=== PATIENT | female | born 1975 | race Caucasian/White ===

== ENCOUNTER 2017-10-10 09:21 | Observation (INO) | payer SELFPAY ==
[2017-10-10] MEDS ORDERED: ASPIRIN EC 81 MG TAB PO ONE (10:03)
[2017-10-10 10:10] LABS: Absolute Lymphocytes (CBC) 3.6 K/uL (0.7-4.9); Absolute Neutrophil 5.2 K/uL (1.8-8.0); Eosinophils % 0.6 % (0-4.4); Hematocrit 42.5 % (36.0-45.0); MCH 28.2 pg (27.0-35.0); MCV 84.3 fL (80-100); MPV 7.9 fL (7.6-11.3); Monocytes % 10.3 % (3.3-12.3); RBC Red Blood Cell Count 5.04 M/uL (3.86-4.86)
[2017-10-10 10:24] LABS: Potassium 3.9 mEq/L (3.6-5.0)
--- NOTE | 2017-10-10 10:30 | RAD REPORT ---
EXAM DESCRIPTION: RAD - Chest Single View - 10/10/2017 10:24 am CLINICAL HISTORY: Chest pain. COMPARISON: 08/04/2009 FINDINGS: Portable technique limits examination quality. The lungs are grossly clear. The heart is normal in size. No displaced fractures. IMPRESSION: No acute intrathoracic process suspected.
[2017-10-10 10:44] LABS: Urine Blood NEGATIVE (NEG); Urine Glucose NEGATIVE (NEG); Urine Protein NEGATIVE (NEG)
--- NOTE | 2017-10-10 11:15 | ER ---
Nurse's Notes [facility] Name: Bernice Akers Age: 42 yrs Sex: Female : 1975 Arrival Date: 10/10/2017 Time: : Bed 19 Private MD: Alvaro Gaytan Diagnosis: Chest pain, unspecified Presentation: 10/10 09:40 Presenting complaint: Patient states: left sided chest pain that started about 30-40 iw minutes ago, also started to have left arm tingling, CP is intermittent and described as "tightening and burning", also had mild nausea and SOB. Transition of care: patient was not received from another setting of care. Onset of symptoms was October 10, 2017. Risk Assessment: Do you want to hurt yourself or someone else? Patient reports no desire to harm self or others. Initial Sepsis Screen: Does the patient meet any 2 criteria? No. Patient's initial sepsis screen is negative. Does the patient have a suspected source of infection? No. Patient's initial sepsis screen is negative. Care prior to arrival: None. 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 - Social history:: Smoking status: Patient uses tobacco products, smokes one pack cigarettes per day. - Family history:: not pertinent. - Hospitalizations: : No recent hospitalization is reported. Screenin:00 Abuse screen: Denies threats or abuse. Nutritional screening: No deficits noted. em Tuberculosis screening: No symptoms or risk factors identified. Fall Risk None identified. Assessment: 10:13 General: Appears in no apparent distress. uncomfortable, Behavior is calm, cooperative. em Pain: Complains of pain in left breast Pain radiates to left arm Quality of pain is described as burning, tingling, Pain began 1 hour ago. Neuro: Level of Consciousness is awake, alert, obeys commands, Oriented to person, place, time, situation. Cardiovascular: Capillary refill < 3 seconds Patient's skin is warm and dry. Cardiovascular: Reports chest pain, nausea, shortness of breath, Heart tones S1 S2 present. Respiratory: Airway is patent Respiratory effort is even, unlabored, Respiratory pattern is regular, symmetrical. Respiratory: Breath sounds are clear bilaterally. GI: Abdomen is flat. GI: Reports nausea. : No signs and/or symptoms were reported regarding the genitourinary system. Derm: Skin is intact, Skin is pink, warm \\T\\ dry. Musculoskeletal: Range of motion: intact in all extremities. 10:20 Reassessment: Patient appears in no apparent distress at this time. I agree with above iw assessment by Nick Quiros LVN. 11:00 Reassessment: Patient appears in no apparent distress at this time. Patient and/or em family updated on plan of care and expected duration. Pain level reassessed. Dr. Stout at bedside discussing POC. 11:56 Reassessment: Patient appears in no apparent distress at this time. Patient and/or em family updated on plan of care and expected duration. Pain level reassessed. Patient is alert, oriented x 3, equal unlabored respirations, skin warm/dry/pink. awaiting room assignment Patient states feeling better. 13:00 Reassessment: Patient appears in no apparent distress at this time. Patient and/or em family updated on plan of care and expected duration. Pain level reassessed. Patient is alert, oriented x 3, equal unlabored respirations, skin warm/dry/pink. Patient states feeling better. Patient states symptoms have improved. 13:56 Reassessment: No changes from previously documented assessment. Patient and/or family em updated on plan of care and expected duration. Pain level reassessed. Patient is alert, oriented x 3, equal unlabored respirations, skin warm/dry/pink. Patient states feeling better. 14:51 Reassessment: Patient appears in no apparent distress at this time. Patient is alert, em oriented x 3, equal unlabored respirations, skin warm/dry/pink. pt ambulated to restroom. Vital Signs: 09:46 BP 111 / 54; Pulse 71; Resp 18 S; Temp 98.2; Pulse Ox 97% on R/A; Weight 86.18 kg; iw Height 5 ft. 4 in. (162.56 cm); Pain 7/10; 10:23 BP 122 / 81; Pulse 71; Resp 14; Pulse Ox 99% on R/A; Pain 7/10; em 11:30 BP 112 / 68; Pulse 62; Resp 18; Pulse Ox 98% on R/A; em 12:30 BP 114 / 77; Pulse 60; Resp 18; Pulse Ox 98% on R/A; Pain 4/10; em 13:30 BP 104 / 68; Pulse 61; Resp 18; Pulse Ox 97% on R/A; em 14:53 BP 111 / 69; Pulse 93; Resp 16; Temp 98.2(O); Pulse Ox 100% on R/A; Pain 6/10; em 09:46 Body Mass Index 32.61 (86.18 kg, 162.56 cm) iw ED Course: 09:23 Patient arrived in ED. mr 09:23 Alvaro Gaytan MD is Private Physician. mr 09:34 Barbie Mccullough FNP-C is [facility]. kb 09:34 Everton Stout MD is Attending Physician. kb 09:43 Everton Stout MD is Attending Physician. rn 09:45 Triage completed. iw 09:49 Nick Quiros LVN is Primary Nurse. em 09:59 EKG done, by unit aide tech. reviewed by Everton Stout MD. tc 10:00 No provider procedures requiring assistance completed. Initial lab(s) drawn, by me, em sent to lab. Inserted saline lock: 20 gauge in right antecubital area, using aseptic technique. Blood collected. Patient maintains SpO2 saturation greater than 95% on room air. 10:16 Arm band placed on. em 10:20 X-ray completed. Portable x-ray completed in exam room. Patient tolerated procedure jb2 well. 10:23 quality assurance monitor chassis on. Pulse ox on. NIBP on. em 10:23 Patient has correct armband on for positive identification. Placed in gown. Bed in low em position. Call light in reach. Adult w/ patient. 10:24 XRAY Chest (1 view) In Process Unspecified. EDMS 11:14 Estefany Reeves MD is Hospitalizing Provider. rn 15:07 Patient admitted, IV remains in place. em Administered Medications: 10:06 Drug: Aspirin Chewable Tablet 324 mg Route: PO; em 11:58 Follow up: Response: No adverse reaction em Outcome: 11:14 Decision to Hospitalize by Provider. rn 15:07 Admitted to Tele accompanied by tech, via wheelchair, room 215, with chart, Report em called to MAURICIO Brown 15:07 Condition: good 15:07 Instructed on the need for admit, Demonstrated understanding of instructions. 15:11 Patient left the ED. em Signatures: Dispatcher [employer] EDBarbie Hope, TERMINATION CLERK-C TERMINATION CLERK-Ckb Latia España mr Wharton, Mat jb2 Nick Quiros, PUPPET ENGINEER PUPPET ENGINEER em Emma Louis, Everton Charles RN, MD MD rn Callis, Tiffany, dentistry professor EKG Ttc Corrections: (The following items were deleted from the chart) 14:59 09:45 PMHx: None; iw em 15:10 12:30 BP 114 / 77; Pulse 60bpm; Resp 18bpm; Pulse Ox 98% RA; em em
--- NOTE | 2017-10-10 11:15 | EDPHYS ---
Physician Documentation [facility] Name: Bernice Akers Age: 42 yrs Sex: Female : 1975 Arrival Date: 10/10/2017 Time: :23 Bed 19 Private MD: Alvaro Gaytan ED Physician Everton Stout HPI: 10/10 10:10 This 42 yrs old Female presents to ER via Wheelchair with complaints of Chest rn Pain, Numbness Of Arm. 10:10 The patient or guardian reports chest pain that is located primarily in the substernal rn area. Onset: just prior to arrival, 1 hour(s) ago. The pain radiates to the left shoulder. Associated signs and symptoms: Pertinent positives: nausea, Pertinent negatives: abdominal pain, diaphoresis, headache, lightheadedness, near syncope, palpitations, shortness of breath, syncope, vomiting. The chest pain is described as a heaviness. Duration: The patient or guardian reports a single episode, that is still ongoing. Severity of pain: At its worst the pain was mild in the emergency department the pain is unchanged. The patient has not experienced similar symptoms in the past. The patient has not recently seen a physician. Chest heaviness began at rest, radiates to left shoulder, no medical problems, no famhx of VA, + smoker, no fever/cough.. 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 - Social history:: Smoking status: Patient uses tobacco products, smokes one pack cigarettes per day. - Family history:: not pertinent. - Hospitalizations: : No recent hospitalization is reported. ROS: 10:10 Constitutional: Negative for fever, chills, and weight loss, Eyes: Negative for injury, rn pain, redness, and discharge, Neck: Negative for injury, pain, and swelling, Cardiovascular: Negative for palpitations, and edema, Respiratory: Negative for shortness of breath, cough, wheezing, and pleuritic chest pain, Abdomen/GI: Negative for abdominal pain, vomiting, diarrhea, and constipation, MS/Extremity: Negative for injury and deformity, Skin: Negative for injury, rash, and discoloration, Neuro: Negative for headache, weakness, numbness, tingling, and seizure. Exam: 10:10 Constitutional: This is a well developed, well nourished patient who is awake, alert, rn and in no acute distress. Head/Face: Normocephalic, atraumatic. Eyes: Pupils equal round and reactive to light, extra-ocular motions intact. Lids and lashes normal. Conjunctiva and sclera are non-icteric and not injected. Cornea within normal limits. Periorbital areas with no swelling, redness, or edema. Neck: Trachea midline, no thyromegaly or masses palpated, and no cervical lymphadenopathy. Supple, full range of motion without nuchal rigidity, or vertebral point tenderness. No Meningismus. Cardiovascular: Regular rate and rhythm with a normal S1 and S2. No gallops, murmurs, or rubs. Normal PMI, no JVD. No pulse deficits. Respiratory: Lungs have equal breath sounds bilaterally, clear to auscultation and percussion. No rales, rhonchi or wheezes noted. No increased work of breathing, no retractions or nasal flaring. Abdomen/GI: Soft, non-tender, with normal bowel sounds. No distension or tympany. No guarding or rebound. No evidence of tenderness throughout. MS/ Extremity: Pulses equal, no cyanosis. Neurovascular intact. Full, normal range of motion. Equal circumference. Neuro: Awake and alert, GCS 15, oriented to person, place, time, and situation. Cranial nerves II-XII grossly intact. Motor strength 5/5 in all extremities. Sensory grossly intact. Vital Signs: 09:46 BP 111 / 54; Pulse 71; Resp 18 S; Temp 98.2; Pulse Ox 97% on R/A; Weight 86.18 kg; iw Height 5 ft. 4 in. (162.56 cm); Pain 7/10; 10:23 BP 122 / 81; Pulse 71; Resp 14; Pulse Ox 99% on R/A; Pain 7/10; em 11:30 BP 112 / 68; Pulse 62; Resp 18; Pulse Ox 98% on R/A; em 12:30 BP 114 / 77; Pulse 60; Resp 18; Pulse Ox 98% on R/A; Pain 4/10; em 13:30 BP 104 / 68; Pulse 61; Resp 18; Pulse Ox 97% on R/A; em 14:53 BP 111 / 69; Pulse 93; Resp 16; Temp 98.2(O); Pulse Ox 100% on R/A; Pain 6/10; em 09:46 Body Mass Index 32.61 (86.18 kg, 162.56 cm) iw MDM: 09:43 Patient medically screened. rn 11:11 Differential diagnosis: acute pericarditis, coronary artery disease costochondritis, rn gastroesophageal reflux disease (GERD), pericarditis, pleurisy, pneumonia, pneumothorax, pulmonary embolus. The patient was given aspirin in the Emergency Department. Data reviewed: vital signs, nurses notes, lab test result(s), EKG, radiologic studies, plain films, and as a result, I will admit patient. Counseling: I had a detailed discussion with the patient and/or guardian regarding: the historical points, exam findings, and any diagnostic results supporting the discharge/admit diagnosis, lab results, radiology results, the need for further work-up and treatment in the hospital. Response to treatment: the patient's symptoms have mildly improved after treatment, and as a result, I will admit patient. Admission orders: after a detailed discussion of the patient's condition and case, the admit orders are written by me. ED course: Pt with chest pain that has improved, now complaining mostly of tingling down left arm. Never had cardiac eval, will admit for chest pain eval given long-time smoker and no clear etiology of chest pain.. 10/10 09:48 Order name: Basic Metabolic Panel; Complete Time: 10:54 10/10 09:48 Order name: BNP; Complete Time: 10:54 10/10 09:48 Order name: CBC with Diff; Complete Time: 10:32 10/10 09:48 Order name: Ckmb; Complete Time: 10:54 10/10 09:48 Order name: CPK; Complete Time: 10:54 10/10 09:48 Order name: Troponin (emerg Dept Use Only); Complete Time: 10:54 10/10 09:48 Order name: XRAY Chest (1 view); Complete Time: 10:32 10/10 09:48 Order name: EKG; Complete Time: 09:49 rn 10/10 09:48 Order name: Cardiac monitoring; Complete Time: 10:32 rn 10/10 09:48 Order name: EKG - Nurse/Tech; Complete Time: 10:32 rn 10/10 09:48 Order name: D-Dimer; Complete Time: 10:32 rn 10/10 10:33 Order name: Urine Dipstick--Ancillary (enter results); Complete Time: 10:54 10/10 09:48 Order name: IV Saline Lock; Complete Time: 10:32 rn 10/10 09:48 Order name: Labs collected and sent; Complete Time: 10:32 rn 10/10 09:48 Order name: O2 Per Protocol; Complete Time: 10:32 rn 10/10 09:48 Order name: O2 Sat Monitoring; Complete Time: 10:32 rn 10/10 09:48 Order name: Urine Dipstick-Ancillary (obtain specimen); Complete Time: 10:32 rn Administered Medications: 10:06 Drug: Aspirin Chewable Tablet 324 mg Route: PO; em 11:58 Follow up: Response: No adverse reaction em Disposition: 10/10/17 11:14 Hospitalization ordered by Estefany Reeves for Observation. Preliminary diagnosis is Chest pain, unspecified. - Bed requested for Telemetry/MedSurg (observation). - Status is Observation. em - Condition is Stable. - Problem is new. - Symptoms have improved. UTI on Admission? No Signatures: Dispatcher [employer] EDPR Zayda Hernandez bd Nick Quiros, FAMILY DENTIST FAMILY DENTIST em Emma Louis RN RN iw Everton Stout MD MD photography intern: (The following items were deleted from the chart) 10:32 09:48 Urine Test ordered. rn em 14:39 11:14 Hospitalization Ordered by Estefany Reeves MD for Observation. Preliminary bd diagnosis is Chest pain, unspecified. Bed requested for Telemetry/MedSurg (observation). Status is Observation. Condition is Stable. Problem is new. Symptoms have improved. UTI on Admission? No. rn 14:59 09:45 PMHx: None; iw em 15:11 14:39 10/10/2017 11:14 Hospitalization Ordered by Estefany Reeves MD for Observation. em Preliminary diagnosis is Chest pain, unspecified. Bed requested for Telemetry/MedSurg (observation). Status is Observation. Condition is Stable. Problem is new. Symptoms have improved. UTI on Admission? No. bd
[2017-10-10] MEDS ORDERED: ONDANSETRON 4 MG/2 ML VIAL IV PRN (11:32)
[2017-10-10] MEDS ORDERED: ACETAMINOPHEN 500 MG TAB PO PRN (11:32)
--- NOTE | 2017-10-10 12:27 | EKG ---
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
--- NOTE | 2017-10-10 15:11 | P.HP ---
Certification for Inpatient Patient admitted to: Observation With expected LOS: <2 Midnights Patient will require the following post-hospital care: None Practitioner: I am a practitioner with admitting privileges, knowledge of patient current condition, hospital course, and medical plan of care. Services: Services provided to patient in accordance with Admission requirements found in Title 42 Section 412.3 of the Code of Federal Regulations Patient History Date of Service: 10/10/17 Primary Care Provider: None Reason for admission: Chest pain History of Present Illness: 42-year-old female with significant past medical history of nicotine abuse smokes 1 pack a day for over 20 years who presented to the ED complaining of having some chest pain at rest. Patient stated that she was driving to her work when she started having some chest pressure on the left. Pt also had burning on the left side of her left breast. Patient stated that she thought her pain was not radiating anywhere else however she did feel like she was short of breath at that time. Pain lasted about 30 to 40 mins and resolved on its own. Patient denies having any nausea vomiting or any other associated symptoms with it. Patient states that she has been smoking 1 pack of cigarettes for over 20 years and has not been followed up by a primary care physician for a long time. Patient does not have an family history of MIs and states pretty much everybody in her family is healthy Allergies No Known Allergies Allergy (Unverified 02/05/16 04:39) Review of Systems General: As per HPI Physical Examination - Physical Exam General: Alert, In no apparent distress HEENT: Atraumatic, PERRLA, Mucous membr. moist/pink, EOMI, Sclerae nonicteric Neck: Supple, 2+ carotid pulse no bruit, No LAD, Without JVD or thyroid abnormality Respiratory: Clear to auscultation bilaterally, Normal air movement Cardiovascular: Regular rate/rhythm, Normal S1 S2 Gastrointestinal: Normal bowel sounds, No tenderness Musculoskeletal: No tenderness Integumentary: No rashes Neurological: Normal gait, Normal speech, Normal strength at 5/5 x4 extr, Normal tone, Normal affect Lymphatics: No axilla or inguinal lymphadenopathy - Studies Laboratory Data (last 24 hrs) 10/10/17 10:00: WBC 9.9, Hgb 14.2, Hct 42.5, Plt Count 315 10/10/17 10:00: B-Natriuretic Peptide 32 10/10/17 10:00: Sodium 140, Potassium 3.9, BUN 8, Creatinine 0.71, Glucose 94 Assessment and Plan - Problems (Diagnosis) (1) Chest pain Current Visit: Yes Status: Acute Plan: Chest Pain with Negative troponin and EKG. Most likely costocondritis. -ECHO ordered -Treadmill Stress test -ASA, lipitor and BB -Smoking cessation provided -DC if negative stress test. Qualifiers: Chest pain type: unspecified Qualified Code(s): R07.9 - Chest pain, unspecified (2) Nicotine abuse Current Visit: Yes Status: Chronic Plan: Smoked about 1 pack a day for over 20 yrs Discharge Plan: Home Plan to discharge in: 24 Hours - Advance Directives Does patient have a Living Will: No Does patient have a Durable POA for Healthcare: No - Code Status/Comfort Care Code Status Assessed: Yes Critical Care: No
[2017-10-10 16:00] VITALS: BMI 326.3
[2017-10-10] MEDS ORDERED: ATORVASTATIN 40 MG TAB PO SCH (21:00)
[2017-10-11 01:43] VITALS: O2SAT 97
[2017-10-11 05:35] LABS: Bicarbonate 27 mEq/L (21-31); Potassium 3.8 mEq/L (3.6-5.0); Sodium Level 138 mEq/L (135-145)
[2017-10-11 05:38] LABS: BUN Blood Urea Nitrogen 11 mg/dL (6-20); Glucose Level 97 mg/dL (65-120); Phosphorus 5.3 mg/dL (2.5-4.3)
[2017-10-11] MEDS ORDERED: METOPROLOL TAR 25 MG TAB PO SCH (06:00)
--- NOTE | 2017-10-11 08:38 | ECHO ---
HEIGHT: 5 ft 4 in WEIGHT: 1901 lb 0 oz DATE OF STUDY: 10/10/[address]: Estefany Reeves MD 2-DIMENSIONAL: YES M.MODE: YES DOPPLER: YES COLOR FLOW: YES TDS: NO PORTABLE: NO DEFINITY: NO BUBBLE STUDY: NO DIAGNOSIS: CHEST PAIN CARDIAC HISTORY: CATHERIZATION: NO SURGERY: NO PROSTHETIC VALVE: NO PACEMAKER: NO MEASUREMENTS (cm) DIASTOLIC (NORMALS) SYSTOLIC (NORMALS) IVSd 1.0 (0.6-1.2) LA Diam 3.4 (1.9-4.0) LVEF 63% LVIDd 4.1 (3.5-5.7) LVIDs 2.7 (2.0-3.5) %FS 34% LVPWd 1.0 (0.6-1.2) Ao Diam 2.9 (2.0-3.7) 2 DIMENSIONAL ASSESSMENT: RIGHT ATRIUM: NORMAL LEFT ATRIUM: NORMAL RIGHT VENTRICLE: NORMAL LEFT VENTRICLE: NORMAL TRICUSPID VALVE: NORMAL MITRAL VALVE: NORMAL PULMONIC VALVE: NORMAL AORTIC VALVE: NORMAL PERICARDIAL EFFUSION: NONE AORTIC ROOT: NORMAL LEFT VENTRICULAR WALL MOTION: NORMAL. DOPPLER/COLOR FLOW: MILD TRICUSPID REGURGITATION. COMMENTS: MILD TRICUSPID REGURGITATION- NORMAL RIGHT VENTRICULAR SYSTOLIC PRESSURE. NORMAL LEFT VENTRICULAR SIZE AND FUNCTION. NO WALL MOTION ABNORMALITY. NO EFFUSION. TECHNOLOGIST: JAMES APONTE
[2017-10-11] MEDS ORDERED: ASPIRIN EC 81 MG TAB PO SCH (09:00)
[2017-10-11 10:04] LABS: Urine Appearance CLOUDY; Urine Bilirubin NEGATIVE (NEG); Urine Blood TRACE (NEG); Urine Color YELLOW; Urine Glucose NEGATIVE (NEG); Urine Protein NEGATIVE (NEG); Urine Specific Gravity 1.025 (1.005-1.030)
[2017-10-11 10:06] LABS: Urine Microscopic Reflex ORDER UMIC
[2017-10-11 10:16] LABS: Urine Bacteria 20-50 /HPF (<20); Urine Culture Reflex Order NOT NEEDED
[2017-10-11 10:21] VITALS: BP 107/54; TEMP 97.9
--- NOTE | 2017-10-11 11:15 | TREADMILL ---
70% H.R.: 124 85% H.R.: 158 90% H.R.: 159 100% H.R.: 177 DX: CHEST PAIN WITH HISTORY OF SMOKING Date of Study: 10/11/17 Ht: 5 4 Wt: 1901 lb 0 oz Consulting Physician: FREDY MEDICATIONS: TYLENOL, ASPIRIN, LIPITOR, LOPRESSOR, ZOFRAN, SODIUM CHLORIDE. HISTORY: 42 YEAR OLD FEMALE HERE FOR CHEST PAIN. HISTORY OF BELLS PALSY. SMOKING PHYSICIAL EXAMINATION: RESTING B.P.: 111/70 RESTING H.R.: 59 RESTING EKG: NORMAL PROTOCOL: ROBERT ROUTINE EXERCISE TIME: 10:20 MAXIMUM HEART RATE: 157 % OF PREDICTED B.P. AT PEAK STRESS: 116/65 H.R. AT 1 MINUTE POST EXERCISE: 118 IMPRESSION: ROUTINE STRESS TEST PERFORMED. STOPPED FOR TARGET HEART RATE AND FATIGUE. NO ARRHYTHMIAS NOTED. DENIES ANY CHEST PAIN. SEE REPORT. NO SIGNIFICANT ST DEPRESSION WITH STRESS. NORMAL STRESS TEST.
--- NOTE | 2017-10-11 12:37 | P.SSS ---
Patient History Date of Service: 10/11/17 Primary Care Provider: None Reason for admission: Chest pain History of Present Illness: 42-year-old female with significant past medical history of nicotine abuse smokes 1 pack a day for over 20 years who presented to the ED complaining of having some chest pain at rest. Patient stated that she was driving to her work when she started having some chest pressure on the left. Pt also had burning on the left side of her left breast. Patient stated that she thought her pain was not radiating anywhere else however she did feel like she was short of breath at that time. Pain lasted about 30 to 40 mins and resolved on its own. Patient denies having any nausea vomiting or any other associated symptoms with it. Patient states that she has been smoking 1 pack of cigarettes for over 20 years and has not been followed up by a primary care physician for a long time. Patient does not have an family history of MIs and states pretty much everybody in her family is healthy Allergies No Known Allergies Allergy (Verified 10/10/17 15:42) Home Medications: Aspirin/Caffeine [Bc Powder Packet] 1 each PO DAILY PRN 10/10/17 - Past Medical/Surgical History Has patient received pneumonia vaccine in the past: No Diabetic: No -: bells palsy left side of face. -: hysterectomy -: oziel knee surgeries - Family History Mother -: Hypertension, Cancer Father -: Hypertension, Lung disease - Social History Smoking Status: Current every day smoker Alcohol use: Yes CD- Drugs: No Caffeine use: Yes Place of Residence: Home Review of Systems Unremarkable General: As per HPI Physical Examination - Vital Signs Temperature: 97.9 F Blood Pressure: 107/54 Pulse: 51 Respirations: 18 Pulse Ox (%): 93 - Physical Exam General: Alert, In no apparent distress HEENT: Atraumatic, PERRLA, Mucous membr. moist/pink, EOMI, Sclerae nonicteric Neck: Supple, 2+ carotid pulse no bruit, No LAD, Without JVD or thyroid abnormality Respiratory: Clear to auscultation bilaterally, Normal air movement Cardiovascular: Regular rate/rhythm, Normal S1 S2 Gastrointestinal: Normal bowel sounds, No tenderness Musculoskeletal: No tenderness Integumentary: No rashes Neurological: Normal gait, Normal speech, Normal strength at 5/5 x4 extr, Normal tone, Normal affect Lymphatics: No axilla or inguinal lymphadenopathy - Diagnosis (Problem(s)) (1) Chest pain Onset Date: 10/11/17 Status: Acute Plan: Chest Pain with Negative troponin and EKG. Most likely costocondritis. -ECHO WNL -Treadmill Stress test negative -Smoking cessation provided Qualifiers: Chest pain type: unspecified Qualified Code(s): R07.9 - Chest pain, unspecified (2) Nicotine abuse Onset Date: 10/11/17 Status: Chronic Plan: Smoked about 1 pack a day for over 20 yrs Treatment Summary: Overall during the hospital stay patient remained stable Patient was initially admitted to the hospital for chest pain rule out acute coronary syndrome. Patient had a treadmill test done which was negative. Patient's echocardiogram was within normal limits. Patient's chest pain is most likely secondary to costochondritis. Patient was educated extensively on smoking cessation and then was discharged home under stable condition. - Disposition Disposition: ROUTINE DISCHARGE Condition: GOOD Diet: Regular Activity: Ad argenis
== END 2017-10-11 11:59 | disposition home or self-care (01) ==
LOC: ER 09:21 → ERHOLD 11:16 → 2ND 14:59
PROVIDERS: ADMIT Family Medicine; ATTEND Family Medicine
DX: R07.9 Chest pain, unspecified (principal); F17.210 Nicotine dependence, cigarettes, uncomplicated
CPT/HCPCS: 36415; 71045; 80048; 81003; 81015; 82550; 82553; 83735; 83880; 84100; 84484; 85025; 85379; 93005; 93017; 93306; 99285; G0378

== ENCOUNTER 2018-04-21 12:05 | Emergency (ER) | payer BC, SELFPAY ==
--- NOTE | 2018-04-21 13:24 | RAD REPORT ---
EXAM DESCRIPTION: RAD - Forearm Left - 04/21/2018 1:18 pm CLINICAL HISTORY: Pain;Swelling COMPARISON: No comparisons FINDINGS: Soft tissue swelling is seen involving the left forearm. No fracture or dislocation seen.
--- NOTE | 2018-04-21 13:46 | ER ---
Nurse's Notes [facility] Name: Bernice Akers Age: 42 yrs Sex: Female : 1975 Arrival Date: 04/21/2018 Time: 12:10 Bed 26 Private MD: Alvaro Gaytan Diagnosis: Contusion of left forearm;Local infection of the skin and subcutaneous tissue, unspecified Presentation: 04/21 12:31 Presenting complaint: Patient states: Left forearm pain that started two days ago after sg nicking the ceiling fan, pt reports this morning she noticed increased swelling and redness to the site of abraision as well as increased pain. Transition of care: patient was not received from another setting of care. Onset of symptoms was April 21, 2018. Risk Assessment: Do you want to hurt yourself or someone else? Patient reports no desire to harm self or others. Initial Sepsis Screen: Does the patient meet any 2 criteria? No. Patient's initial sepsis screen is negative. Does the patient have a suspected source of infection? No. Patient's initial sepsis screen is negative. Care prior to arrival: None. 12:31 Method Of Arrival: Ambulatory sg 12:31 Acuity: IZABEL 4 sg Triage Assessment: 13:05 General: Appears in no apparent distress. well groomed, well developed, well nourished, kr2 Behavior is calm, cooperative, appropriate for age. Injury Description: Abrasion sustained to left forearm. 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 - Social history:: Smoking status: Patient uses tobacco products, smokes one pack cigarettes per day. - Ebola Screening: : Patient negative for fever greater than or equal to 101.5 degrees Fahrenheit, and additional compatible Ebola Virus Disease symptoms Patient denies exposure to infectious person Patient denies travel to an Ebola-affected area in the 21 days before illness onset No symptoms or risks identified at this time. Screenin:05 Abuse screen: Denies threats or abuse. Denies injuries from another. Nutritional kr2 screening: No deficits noted. Tuberculosis screening: No symptoms or risk factors identified. Fall Risk None identified. Assessment: 13:05 General: Appears in no apparent distress. comfortable, well groomed, well developed, kr2 well nourished, Behavior is calm, cooperative, appropriate for age. Pain: Complains of pain in left forearm Pain radiates to left arm Pain currently is 5 out of 10 on a pain scale. Quality of pain is described as aching, tender, Pain began gradually, Is continuous, Alleviated by medications, rest, Aggravated by increased activity, repositioning. Neuro: Level of Consciousness is awake, alert, obeys commands, Oriented to person, place, time, situation, Appropriate for age Polisher Apprentice are equal bilaterally Intact. Cardiovascular: Capillary refill < 3 seconds in bilateral fingers Patient's skin is warm and dry. Respiratory: Airway is patent Respiratory effort is even, unlabored, Respiratory pattern is regular, symmetrical. Derm: Skin is healthy with good turgor, Skin is pink, warm \T\ dry. Wound noted left forearm Wound is an abrasion, erythema and swelling surround abrasion Bruising that is dark purple, on left forearm. 14:00 Reassessment: Patient appears in no apparent distress at this time. Patient and/or kr2 family updated on plan of care and expected duration. Pain level reassessed. Patient is alert, oriented x 3, equal unlabored respirations, skin warm/dry/pink. Musculoskeletal: Circulation, motion, and sensation intact. Vital Signs: 12:33 BP 140 / 81; Pulse 88; Resp 17; Temp 97.7; Pulse Ox 100% on R/A; Weight 83.91 kg; sg Height 5 ft. 6 in. (167.64 cm) (R); Pain 7/10; 13:30 BP 133 / 80; Pulse 84; Resp 16; Pulse Ox 100% on R/A; kr2 12:33 Body Mass Index 29.86 (83.91 kg, 167.64 cm) sg ED Course: 12:10 Patient arrived in ED. sb2 12:11 Alvaro Gaytan MD is Private Physician. sb2 12:31 Arm band placed on. sg 12:32 Triage completed. sg 12:41 Barbie Mccullough FNP-C [facility]. kb 12:41 Dylon Smith MD is Attending Physician. kb 13:05 Patient has correct armband on for positive identification. Bed in low position. Call kr2 light in reach. Side rails up X 1. Pulse ox on. NIBP on. Door closed. Lights dimmed. Warm blanket given. Head of bed elevated. 13:19 X-ray completed. Portable x-ray completed in exam room. Patient tolerated procedure tm4 well. 13:59 Damaris Frances, RN is Primary Nurse. kr2 14:00 Patient did not have IV access during this emergency room visit. kr2 04/22 01:11 No provider procedures requiring assistance completed. kr2 Administered Medications: No medications were administered Outcome: 04/21 13:44 Discharge ordered by . kanwal 14:00 Discharged to home ambulatory. kr2 14:00 Condition: good 14:00 Discharge instructions given to patient, Instructed on discharge instructions, follow up and referral plans. medication usage, Demonstrated understanding of instructions, follow-up care, medications, Prescriptions given X 1. 14:11 Patient left the ED. kr2 Signatures: Barbie Mccullough, ORTHOPAEDIC NURSE-C ORTHOPAEDIC NURSE-Ckb Pablo Ariza RN RN sg Marroquin, Tracy tm4 Damaris Frances, MAURICIO RN kr2 Terri Frost sb2
--- NOTE | 2018-04-21 13:46 | EDPHYS ---
Physician Documentation [facility] Name: Bernice Akers Age: 42 yrs Sex: Female : 1975 Arrival Date: 04/21/2018 Time: 12:10 Bed 26 Private MD: Alvaro Gaytan ED Physician Dylon Smith HPI: 04/21 13:37 This 42 yrs old Female presents to ER via Ambulatory with complaints of Arm kb Injury. 13:37 The patient or guardian complains of injury, pain, that is acute, swelling, tenderness. kb The complaints affect the left forearm. Context: The problem was sustained at home, resulted from a fall, from stool. Onset: The symptoms/episode began/occurred yesterday. Treatment prior to arrival includes: no previous treatment. Modifying factors: The symptoms are alleviated by nothing. the symptoms are aggravated by movement. Associated signs and symptoms: Pertinent positives: erythema, pain, swelling. Severity of symptoms: At their worst the symptoms were mild, moderate, in the emergency department the symptoms are unchanged. The patient has not experienced similar symptoms in the past. The patient has not recently seen a physician. 13:44 Pt was on stool, cleaning fan. Fell and hit forearm on fan. Reports swelling, bruising kb and pain to left forearm and an abrasion that developed redness around it today. States the redness wasn't there yesterday so she was worried about infection.. 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 - Social history:: Smoking status: Patient uses tobacco products, smokes one pack cigarettes per day. - Ebola Screening: : Patient negative for fever greater than or equal to 101.5 degrees Fahrenheit, and additional compatible Ebola Virus Disease symptoms Patient denies exposure to infectious person Patient denies travel to an Ebola-affected area in the 21 days before illness onset No symptoms or risks identified at this time. ROS: 13:37 Constitutional: Negative for fever, chills, and weight loss, Cardiovascular: Negative kb for chest pain, palpitations, and edema, Respiratory: Negative for shortness of breath, cough, wheezing, and pleuritic chest pain, Abdomen/GI: Negative for abdominal pain, nausea, vomiting, diarrhea, and constipation, Neuro: Negative for headache, weakness, numbness, tingling, and seizure. 13:37 MS/extremity: Positive for abrasion, erythema, pain, swelling, tenderness, of the left forearm. Exam: 13:37 Constitutional: This is a well developed, well nourished patient who is awake, alert, kb and in no acute distress. Head/Face: Normocephalic, atraumatic. Chest/axilla: Normal chest wall appearance and motion. Nontender with no deformity. No lesions are appreciated. Cardiovascular: Regular rate and rhythm with a normal S1 and S2. No gallops, murmurs, or rubs. Normal PMI, no JVD. No pulse deficits. Respiratory: Lungs have equal breath sounds bilaterally, clear to auscultation and percussion. No rales, rhonchi or wheezes noted. No increased work of breathing, no retractions or nasal flaring. Abdomen/GI: Soft, non-tender, with normal bowel sounds. No distension or tympany. No guarding or rebound. No evidence of tenderness throughout. Neuro: Awake and alert, GCS 15, oriented to person, place, time, and situation. Cranial nerves II-XII grossly intact. Motor strength 5/5 in all extremities. Sensory grossly intact. Cerebellar exam normal. Normal gait. 13:37 Musculoskeletal/extremity: Extremities: grossly normal except: noted in the left forearm: abrasion, erythema, pain, swelling, tenderness, ROM: limited active range of motion due to pain, in the left forearm, Circulation is intact in all extremities. Sensation intact. Vital Signs: 12:33 BP 140 / 81; Pulse 88; Resp 17; Temp 97.7; Pulse Ox 100% on R/A; Weight 83.91 kg; sg Height 5 ft. 6 in. (167.64 cm) (R); Pain 7/10; 13:30 BP 133 / 80; Pulse 84; Resp 16; Pulse Ox 100% on R/A; kr2 12:33 Body Mass Index 29.86 (83.91 kg, 167.64 cm) MDM: 13:00 Patient medically screened. [facility] 13:40 Data reviewed: vital signs, nurses notes. Data interpreted: Pulse oximetry: on room air kb is 100 %. Interpretation: normal. Counseling: I had a detailed discussion with the patient and/or guardian regarding: the historical points, exam findings, and any diagnostic results supporting the discharge/admit diagnosis, radiology results, the need for outpatient follow up, a family practitioner, to return to the emergency department if symptoms worsen or persist or if there are any questions or concerns that arise at home. 04/21 12:42 Order name: XRAY Forearm LEFT sg 04/21 13:24 Order name: RAD; Complete Time: 13:27 EDMS Administered Medications: No medications were administered Disposition: 04/21/18 13:44 Discharged to Home. Impression: Contusion of left forearm, Local infection of the skin and subcutaneous tissue, unspecified. - Condition is Stable. - Discharge Instructions: Contusion, [id number], Wound Infection, [id number]. - Prescriptions for Keflex 500 mg Oral Capsule - take 1 capsule by ORAL route every 8 hours for 7 days; 21 capsule. - Medication Reconciliation Form, Thank You Letter, Antibiotic Education, Prescription Opioid Use form. - Follow up: Emergency Department; When: As needed; Reason: Worsening of condition. Follow up: Private Physician; When: 2 - 3 days; Reason: Recheck today's complaints, Continuance of care, Re-evaluation by your physician. Addendum: 04/23/2018 07:22 Co-signature as Attending Physician, Dylon Smith MD I agree with the assessment and c espitia plan of care. Signatures: Dispatcher [employer] EDMI Barbie Mccullough, RESOURCING CONSULTANT-C RESOURCING CONSULTANT-Pablo Arroyo RN RN sg Anderson, Corey, MD MD cha Reaves, Karey RN RN kr2 Corrections: (The following items were deleted from the chart) 04/21 14:11 13:44 04/21/2018 13:44 Discharged to Home. Impression: Contusion of left forearm; Local kr2 infection of the skin and subcutaneous tissue, unspecified. Condition is Stable. Forms are Medication Reconciliation Form, Thank You Letter, Antibiotic Education, Prescription Opioid Use. Follow up: Emergency Department; When: As needed; Reason: Worsening of condition. Follow up: Private Physician; When: 2 - 3 days; Reason: Recheck today's complaints, Continuance of care, Re-evaluation by your physician. kb
[2018-04-21 16:06] VITALS: BP 140/81; TEMP 97.7; O2SAT 100
== END 2018-04-21 14:11 | disposition home or self-care (01) ==
LOC: ER 12:05
DX: S50.12XA Contusion of left forearm, initial encounter (principal); L08.9 Local infection of the skin and subcutaneous tissue, unspecified; W08.XXXA Fall from other furniture, initial encounter; W22.8XXA Striking against or struck by other objects, initial encounter; Y93.E9 Activity, other interior property and clothing maintenance; Y92.009 Unspecified place in unspecified non-institutional (private) residence as the place of occurrence of the external cause; F17.210 Nicotine dependence, cigarettes, uncomplicated
CPT/HCPCS: 99283

== ENCOUNTER 2018-06-14 18:22 | Emergency (ER) | payer BC ==
--- OUTSIDE RECORDS SUMMARY | 2018-06-14 18:24 | XMS REPORT ---
:1975 [facility] Address [address] [place] [address] Care Team Providers Name Role Phone Unavailable Unavailable Unavailable Problems This patient has no known problems. Allergies, Adverse Reactions, Alerts This patient has no known allergies or adverse reactions. Medications This patient has no known medications.
[2018-06-14] MEDS ORDERED: KETOROLAC 30 MG/ML INJ ONE (19:17)
[2018-06-14] MEDS ORDERED: NA CHLORIDE 0.9% 1,000 ML ONE (19:17)
[2018-06-14 20:10] LABS: Absolute Lymphocytes (CBC) 4.3 K/uL (0.7-4.9); Absolute Monocytes 0.9 K/uL (0.1-1.3); Absolute Neutrophil 3.7 K/uL (1.8-8.0); Basophils % 0.6 % (0-1.3); Eosinophils % 1.6 % (0-4.4); Hematocrit 40.8 % (36.0-45.0); Lymphocytes % 47.9 % (15.3-44.8); MPV 7.4 fL (7.6-11.3); Monocytes % 9.4 % (3.3-12.3); RBC Red Blood Cell Count 4.74 M/uL (3.86-4.86)
[2018-06-14 20:22] LABS: Potassium 3.7 mmol/L (3.5-5.1); Sodium Level 141 mmol/L (136-145)
[2018-06-14 20:23] LABS: Bicarbonate 28 mmol/L (21-32); Glucose Level 86 mg/dL (74-106); Lipase 256 U/L (73-393)
[2018-06-14 20:24] LABS: Albumin 3.8 g/dL (3.4-5.0); BUN Blood Urea Nitrogen 12 mg/dL (7-18)
[2018-06-14 20:26] LABS: ALT/SGPT 31 U/L (12-78); AST/SGOT 20 U/L (15-37); Bilirubin Direct < 0.1 mg/dL (0-0.2)
[2018-06-14 20:28] LABS: Bilirubin Total 0.2 mg/dL (0.2-1.0); Protein, Total 6.9 g/dL (6.4-8.2)
[2018-06-14 20:29] LABS: Alkaline Phosphatase 35 U/L (45-117)
--- NOTE | 2018-06-14 20:50 | RAD REPORT ---
EXAM DESCRIPTION: CTAbdomen Pelvis W Contrast - 06/14/2018 8:40 pm CLINICAL HISTORY: Abdominal pain. Constipation;Abd pain;Flank pain COMPARISON: No comparisons TECHNIQUE: Biphasic CT imaging of the abdomen and pelvis was performed with 100 ml non-ionic IV cont rast. All CT scans are performed using dose optimization technique as appropriate and may include automated exposure control or mA/KV adjustment according to patient size. FINDINGS: The lung bases are clear. The liver, spleen, pancreas, adrenal glands and kidneys are within normal limits. No bowel obstruction, free air, free fluid or abscess. Moderate stool in the colon. Scattered diverti culosis. The appendix is normal. Small fat containing umbilical hernia. No evidence of significant ly mphadenopathy. No suspicious bony findings. IMPRESSION: No acute intra-abdominal or pelvic finding. Moderate constipation.
--- NOTE | 2018-06-14 20:55 | EDPHYS ---
Physician Documentation [facility] Name: Bernice Akers Age: 43 yrs Sex: Female : 1975 Arrival Date: 06/14/2018 Time: 18:26 Bed 23 Private MD: Alvaro Gaytan ED Physician Arnaldo Bocanegra HPI: 06/14 20:31 This 43 yrs old Female presents to ER via Ambulatory with complaints of pm1 Constipation, Back Pain. 20:31 The patient presents with abdominal pain in the lower abdomen. Onset: The pm1 symptoms/episode began/occurred 2 week(s) ago. The symptoms do not radiate. Associated signs and symptoms: Pertinent positives: left flank pain, foul smelling concentrated urine, Pertinent negatives: nausea, vomiting, and diarrhea, chest pain, fever, shortness of breath. The symptoms are described as crampy. Modifying factors: The symptoms are alleviated by nothing, the symptoms are aggravated by laxatives. Severity of pain: in the emergency department the pain is actually worse. The patient has experienced similar episodes in the past, chronically, constipation for the past 6 months. The patient has not recently seen a physician. Has been taking some laxatives as needed for constipation for the past 6 months. For the past 2 weeks has been passing small pellets with taking laxatives. 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 - Social history:: Smoking status: Patient uses tobacco products, 2 cigarettes per day . - Ebola Screening: : Patient negative for fever greater than or equal to 101.5 degrees Fahrenheit, and additional compatible Ebola Virus Disease symptoms Patient denies exposure to infectious person Patient denies travel to an Ebola-affected area in the 21 days before illness onset No symptoms or risks identified at this time. ROS: 20:31 Constitutional: Negative for fever, chills, and weight loss, Eyes: Negative for injury, pm1 pain, redness, and discharge, ENT: Negative for injury, pain, and discharge, Neck: Negative for injury, pain, and swelling, Cardiovascular: Negative for chest pain, palpitations, and edema, Respiratory: Negative for shortness of breath, cough, wheezing, and pleuritic chest pain. 20:31 MS/Extremity: Negative for injury and deformity, Skin: Negative for injury, rash, and discoloration, Neuro: Negative for headache, weakness, numbness, tingling, and seizure. 20:31 Abdomen/GI: Positive for abdominal pain, constipation, Negative for nausea, vomiting, and diarrhea. 20:31 Back: Positive for flank pain, on the left. 20:31 : Positive for foul smelling urine. Exam: 20:31 Constitutional: This is a well developed, well nourished patient who is awake, alert, pm1 and in no acute distress. Head/Face: Normocephalic, atraumatic. Eyes: Pupils equal round and reactive to light, extra-ocular motions intact. Lids and lashes normal. Conjunctiva and sclera are non-icteric and not injected. Cornea within normal limits. Periorbital areas with no swelling, redness, or edema. ENT: Nares patent. No nasal discharge, no septal abnormalities noted. Tympanic membranes are normal and external auditory canals are clear. Oropharynx with no redness, swelling, or masses, exudates, or evidence of obstruction, uvula midline. Mucous membranes moist. Neck: Trachea midline, no thyromegaly or masses palpated, and no cervical lymphadenopathy. Supple, full range of motion without nuchal rigidity, or vertebral point tenderness. No Meningismus. Chest/axilla: Normal chest wall appearance and motion. Nontender with no deformity. No lesions are appreciated. Cardiovascular: Regular rate and rhythm with a normal S1 and S2. No gallops, murmurs, or rubs. Normal PMI, no JVD. No pulse deficits. Respiratory: Lungs have equal breath sounds bilaterally, clear to auscultation and percussion. No rales, rhonchi or wheezes noted. No increased work of breathing, no retractions or nasal flaring. Abdomen/GI: Soft, non-tender, with normal bowel sounds. No distension or tympany. No guarding or rebound. No evidence of tenderness throughout. Back: No spinal tenderness. No costovertebral tenderness. Full range of motion. Skin: Warm, dry with normal turgor. Normal color with no rashes, no lesions, and no evidence of cellulitis. MS/ Extremity: Pulses equal, no cyanosis. Neurovascular intact. Full, normal range of motion. 20:31 Neuro: Orientation: is normal, Motor: is normal, moves all fours, strength is normal, strength is 5/5 in all extremities, Gait: is steady, at a normal pace, without difficulty. Vital Signs: 18:38 BP 128 / 65; Pulse 93; Resp 16; Temp 97.8; Pulse Ox 99% on R/A; Weight 88.45 kg; Height iw 5 ft. 6 in. (167.64 cm); Pain 10/10; 19:59 BP 105 / 65; Pulse 87; Resp 18; Pulse Ox 98% on R/A; tl3 21:12 BP 98 / 58; Pulse 58; Resp 18; Pulse Ox 100% on R/A; tl3 18:38 Body Mass Index 31.47 (88.45 kg, 167.64 cm) iw MDM: 18:30 Patient medically screened. pm1 20:53 Data reviewed: vital signs. Data interpreted: Pulse oximetry: on room air. pm1 20:54 Counseling: I had a detailed discussion with the patient and/or guardian regarding: the pm1 historical points, exam findings, and any diagnostic results supporting the discharge/admit diagnosis, lab results, radiology results, the need for outpatient follow up, to return to the emergency department if symptoms worsen or persist or if there are any questions or concerns that arise at home. 06/14 19:03 Order name: Basic Metabolic Panel pm1 06/14 19:03 Order name: CBC with Diff pm1 06/14 19:03 Order name: Creatinine for Radiology; Complete Time: 20:31 pm1 06/14 19:03 Order name: Hepatic Function; Complete Time: 20:31 pm1 06/14 19:03 Order name: Lipase; Complete Time: 20:31 pm1 06/14 19:04 Order name: Basic Metabolic Panel; Complete Time: 20:31 EDOR 06/14 19:03 Order name: CT Abd/Pelvis - W/Contrast: IV contrast only; Complete Time: 20:52 pm1 06/14 20:17 Order name: Manual Differential EDMS 06/14 20:53 Order name: Urine Culture pm1 06/14 20:58 Order name: Urine Culture EDOR 06/14 19:03 Order name: IV Saline Lock; Complete Time: 20:04 pm1 06/14 19:03 Order name: Labs collected and sent; Complete Time: 20:04 pm1 06/14 19:03 Order name: Urine Dipstick-Ancillary (obtain specimen); Complete Time: 19:58 pm1 Administered Medications: 19:45 Drug: TORadol 30 mg Route: IVP; Infused Over: 2 mins; Site: right antecubital; tl3 20:57 Follow up: Response: No adverse reaction tl3 19:56 Drug: NS 0.9% 1000 ml Route: IV; Rate: 1000 ml; Site: right antecubital; Delivery: tl3 Primary tubing; 20:57 Follow up: IV Status: Completed infusion; IV Intake: 1000ml tl3 21:11 Drug: Rocephin 1 grams Route: IV; Rate: calculated rate; Site: right antecubital; tl3 Delivery: Primary tubing; 21:12 Follow up: IV Status: Completed infusion; IV Intake: 20ml tl3 Disposition: 06/14/18 20:54 Discharged to Home. Impression: Constipation, Urinary tract infection, site not specified. - Condition is Stable. - Discharge Instructions: Constipation, Adult, Urinary Tract Infection, Adult. - Prescriptions for Lactulose 10 gram/15 mL Oral Solution - take 30 milliliter by ORAL route once daily; 300 milliliter. Bactrim DS 800- 160 mg Oral Tablet - take 1 tablet by ORAL route every 12 hours for 10 days; 20 tablet. - Medication Reconciliation Form, Thank You Letter, Antibiotic Education, Prescription Opioid Use form. - Follow up: Private Physician; When: 2 - 3 days; Reason: Recheck today's complaints, Continuance of care, Re-evaluation by your physician. Follow up: Emergency Department; When: As needed; Reason: Worsening of condition. - Problem is new. - Symptoms have improved. Addendum: 06/21/2018 08:57 Co-signature as Attending Physician, Arnaldo Bocanegra MD I agree with the assessment and k dr plan of care. Signatures: Dispatcher [employer] EDOR Arnaldo Bocanegra MD MD [facility] Emma Louis RN RN iw Wilder Sharma, INFORMATION TECHNOLOGY MANAGER INFORMATION TECHNOLOGY MANAGER pm1 Xenia Sow RN RN tl3 Corrections: (The following items were deleted from the chart) 01/24 20:03 19:03 Urine Test ordered. pm1 tl3 21:16 20:54 06/14/2018 20:54 Discharged to Home. Impression: Constipation; Urinary tract tl3 infection, site not specified. Condition is Stable. Forms are Medication Reconciliation Form, Thank You Letter, Antibiotic Education, Prescription Opioid Use. Follow up: Private Physician; When: 2 - 3 days; Reason: Recheck today's complaints, Continuance of care, Re-evaluation by your physician. Follow up: Emergency Department; When: As needed; Reason: Worsening of condition. Problem is new. Symptoms have improved. pm1
--- NOTE | 2018-06-14 20:55 | ER ---
Nurse's Notes [facility] Name: Bernice Akers Age: 43 yrs Sex: Female : 1975 Arrival Date: 06/14/2018 Time: 18:26 Bed 23 Private MD: Alvaro Gaytan Diagnosis: Constipation;Urinary tract infection, site not specified Presentation: 06/14 18:36 Presenting complaint: Patient states: constipation X 2 weeks, pain to lower back iw radiating to right abd area, 10/10, constant, hx of problems with BM X 6 months. Transition of care: patient was not received from another setting of care. Onset of symptoms was May 31, 2018. Risk Assessment: Do you want to hurt yourself or someone else? Patient reports no desire to harm self or others. Initial Sepsis Screen: Does the patient meet any 2 criteria? No. Patient's initial sepsis screen is negative. Does the patient have a suspected source of infection? No. Patient's initial sepsis screen is negative. Care prior to arrival: None. 18:36 Method Of Arrival: Ambulatory iw 18:36 Acuity: IZABEL 3 iw PERFORMANCE MANAGEMENT CONSULTANT: 18:38 LMP N/A - Hysterectomy iw Historical: - Allergies: 18:38 NKA; iw - Home Meds: 18:38 None [Active]; iw - PMHx: 18:38 None; iw - PSHx: 18:38 Hysterectomy; Knee surgery; iw - Immunization history:: Adult Immunizations not up to date. - Social history:: Smoking status: Patient uses tobacco products, 2 cigarettes per day . - Ebola Screening: : Patient negative for fever greater than or equal to 101.5 degrees Fahrenheit, and additional compatible Ebola Virus Disease symptoms Patient denies exposure to infectious person Patient denies travel to an Ebola-affected area in the 21 days before illness onset No symptoms or risks identified at this time. Screenin:37 Abuse screen: Denies threats or abuse. Nutritional screening: No deficits noted. Fall tl3 Risk None identified. 19:59 Tuberculosis screening: No symptoms or risk factors identified. tl3 Assessment: 18:37 General: Appears distressed, uncomfortable, well groomed, well developed, well tl3 nourished, Behavior is calm, cooperative, appropriate for age. Pain: Complains of pain in abdomen Pain currently is 10 out of 10 on a pain scale. Pain: Pain began on and off for the last 6 months, no real BM other than small rabbit pellets for the last two weeks. Neuro: Level of Consciousness is awake, alert, obeys commands, Oriented to person, place, time, situation, Appropriate for age. Cardiovascular: Patient's skin is warm and dry. Respiratory: Airway is patent Respiratory effort is even, unlabored, Respiratory pattern is regular, symmetrical. GI: Bowel sounds present in left upper quadrant and left lower quadrant Abd is soft Abdomen is tender to palpation in right upper quadrant and right lower quadrant. : No deficits noted. EENT: No deficits noted. Derm: No deficits noted. Musculoskeletal: No deficits noted. 19:59 Reassessment: No changes from previously documented assessment. Patient and/or family tl3 updated on plan of care and expected duration. Pain level reassessed. Patient is alert, oriented x 3, equal unlabored respirations, skin warm/dry/pink. 20:31 Reassessment: pt transported to radiology. tl3 21:12 Reassessment: Patient appears in no apparent distress at this time. No changes from tl3 previously documented assessment. Patient and/or family updated on plan of care and expected duration. Pain level reassessed. Patient is alert, oriented x 3, equal unlabored respirations, skin warm/dry/pink. jigar at bedside discussing POC. Vital Signs: 18:38 BP 128 / 65; Pulse 93; Resp 16; Temp 97.8; Pulse Ox 99% on R/A; Weight 88.45 kg; Height iw 5 ft. 6 in. (167.64 cm); Pain 10/10; 19:59 BP 105 / 65; Pulse 87; Resp 18; Pulse Ox 98% on R/A; tl3 21:12 BP 98 / 58; Pulse 58; Resp 18; Pulse Ox 100% on R/A; tl3 18:38 Body Mass Index 31.47 (88.45 kg, 167.64 cm) iw ED Course: 18:26 Patient arrived in ED. mr 18:26 Alvaro Gaytan MD is Private Physician. mr 18:29 Jigar Sharma NP is PHCP. pm1 18:29 Arnaldo Bocanegra MD is Attending Physician. pm1 18:31 Xenia Sow, MAURICIO is Primary Nurse. tl3 18:37 Triage completed. iw 18:37 Patient has correct armband on for positive identification. Bed in low position. Call tl3 light in reach. Side rails up X 1. Adult w/ patient. Pulse ox on. NIBP on. 18:37 No provider procedures requiring assistance completed. tl3 18:38 Arm band placed on. iw 19:05 Radiology exam delayed due to lab results not completed at this time. (BUN/Creatinine). vm2 19:42 Radiology exam delayed due to lab results not completed at this time. (BUN/Creatinine). vm2 19:59 Warm blanket given. tl3 19:59 Initial lab(s) drawn, by me, sent to lab. Urine collected: clean catch specimen, clear. tl3 Inserted saline lock: 22 gauge in right antecubital area, using aseptic technique. Blood collected. 20:04 Basic Metabolic Panel Sent. tl3 20:24 Radiology exam delayed due to lab results not completed at this time. (BUN/Creatinine). vm2 20:[address] via wheelchair. vm2 20:39 CT completed. Patient tolerated procedure well. Patient moved back from CT. nj 20:41 CT Abd/Pelvis - W/Contrast: IV contrast only In Process Unspecified. EDMS 20:56 Urine Culture Sent. tl3 20:59 Manual Differential Sent. tl3 21:11 Urine Culture Sent. tl3 21:12 IV discontinued, intact, bleeding controlled, No redness/swelling at site. Pressure tl3 dressing applied. Administered Medications: 19:45 Drug: TORadol 30 mg Route: IVP; Infused Over: 2 mins; Site: right antecubital; tl3 20:57 Follow up: Response: No adverse reaction tl3 19:56 Drug: NS 0.9% 1000 ml Route: IV; Rate: 1000 ml; Site: right antecubital; Delivery: tl3 Primary tubing; 20:57 Follow up: IV Status: Completed infusion; IV Intake: 1000ml tl3 21:11 Drug: Rocephin 1 grams Route: IV; Rate: calculated rate; Site: right antecubital; tl3 Delivery: Primary tubing; 21:12 Follow up: IV Status: Completed infusion; IV Intake: 20ml tl3 Intake: 20:57 IV: 1000ml; Total: 1000ml. tl3 21:12 IV: 20ml; Total: 1020ml. tl3 Outcome: 20:54 Discharge ordered by . pm1 21:12 Discharged to home ambulatory. tl3 21:12 Condition: stable 21:12 Discharge instructions given to patient, family, Instructed on discharge instructions, follow up and referral plans. medication usage, Demonstrated understanding of instructions, follow-up care, medications, Prescriptions given X 2. 21:15 Discharged to home ambulatory, with family. mg2 21:15 Condition: stable 21:16 Patient left the ED. tl3 Signatures: Dispatcher [employer] EDWV Justina España Irene, RN RN iw Jigar Sharma NP SHELLAC POLISHER pm1 Sher Monzon Victoria vm2 Xenia Swo RN RN tl3 Edgar Mcneill RN RN mg2
[2018-06-14] MEDS ORDERED: CEFTRIAXONE/SWI 1gm 1 GM/10 ML SYR ONE (21:21)
[2018-06-14 21:39] LABS: Blood Morphology Comment NOT SEEN (NOT SEEN); Platelet Estimate ADEQ
[2018-06-14 21:49] VITALS: TEMP 97.8
[2018-06-14 21:52] VITALS: BP 98/58; O2SAT 100
[2018-06-14 23:08] LABS: Urine Blood TRACE (NEG); Urine Glucose NEGATIVE (NEG); Urine Protein NEGATIVE (NEG); Urine Specific Gravity 1.025 (1.005-1.030); Urine pH 5.5 (5.0-7.0)
== END 2018-06-14 21:16 | disposition home or self-care (01) ==
LOC: ER 18:22
DX: N39.0 Urinary tract infection, site not specified (principal); K59.00 Constipation, unspecified; Z72.0 Tobacco use
CPT/HCPCS: 36415; 74177; 80048; 80076; 81003; 83690; 85025; 87086; 87088; 96361; 96374; 96375; 99284; J0696; J7030; Q9967

== ENCOUNTER 2018-09-04 18:20 | Emergency (ER) | payer BC ==
--- OUTSIDE RECORDS SUMMARY | 2018-09-04 18:22 | XMS REPORT ---
:1975 [facility] Address [address] [place] [address] Care Team Providers Name Role Phone Unavailable Unavailable Unavailable Problems This patient has no known problems. Allergies, Adverse Reactions, Alerts This patient has no known allergies or adverse reactions. Medications This patient has no known medications.
--- NOTE | 2018-09-04 19:29 | RAD REPORT ---
EXAM DESCRIPTION: RAD - Ankle Right 3 View - 09/04/2018 7:22 pm CLINICAL HISTORY: Pain;Swelling COMPARISON: <Comparisons> FINDINGS: Prominent soft tissue swelling is seen about the lateral malleolus. Bony fragmentation in the region of the medial and lateral malleoli are favored to be chronic, although a small avulsion in the lateral malleolar region cannot be completely ruled out. Prominent posterior calcaneal spur.
[2018-09-04] MEDS ORDERED: IBUPROFEN 400 MG TAB ONE (19:30)
[2018-09-04] MEDS ORDERED: HYDROCODONE/APAP 10/325 TAB ONE (19:30)
[2018-09-04] MEDS ORDERED: IBUPROFEN 200 MG TAB PO ONE (19:30)
--- NOTE | 2018-09-04 19:30 | RAD REPORT ---
EXAM DESCRIPTION: RAD - Foot Left 3 View - 09/04/2018 7:19 pm CLINICAL HISTORY: Pain;Swelling COMPARISON: <Comparisons> FINDINGS: No acute fracture or dislocation seen. Small calcaneal spurs are noted.
--- NOTE | 2018-09-04 21:38 | EDPHYS ---
Physician Documentation [facility] Name: Bernice Akers Age: 43 yrs Sex: Female : 1975 Arrival Date: 09/04/2018 Time: 18:23 Bed Treatment Private MD: Alvaro Gaytan ED Physician Howie Crow HPI: 09/04 20:00 This 43 yrs old Female presents to ER via Wheelchair with complaints of Fall pm1 Injury, Foot Pain. 20:00 Details of fall: The patient fell from an upright position, while walking. Onset: The pm1 symptoms/episode began/occurred last night. Associated injuries: The patient sustained right ankle, swelling, left first toe, painful injury. Severity of symptoms: in the emergency department the symptoms are unchanged. The patient has experienced similar episodes in the past, a few times, right ankle sprain. The patient has not recently seen a physician. Historical: - Allergies: 18:28 NKA; sv - PMHx: 18:28 BELLS PALSY AT 13 YRS OLD; sv - PSHx: 18:28 Hysterectomy; Knee surgery; sv - Immunization history:: Adult Immunizations up to date. - Social history:: Smoking status: unknown. - Ebola Screening: : Patient denies travel to an Ebola-affected area in the 21 days before illness onset. ROS: 20:00 Constitutional: Negative for fever, chills, and weight loss, Eyes: Negative for injury, pm1 pain, redness, and discharge, ENT: Negative for injury, pain, and discharge, Neck: Negative for injury, pain, and swelling, Cardiovascular: Negative for chest pain, palpitations, and edema, Respiratory: Negative for shortness of breath, cough, wheezing, and pleuritic chest pain, Abdomen/GI: Negative for abdominal pain, nausea, vomiting, diarrhea, and constipation, Back: Negative for injury and pain, : Negative for injury, bleeding, discharge, and swelling. 20:00 Skin: Negative for injury, rash, and discoloration, Neuro: Negative for headache, weakness, numbness, tingling, and seizure. 20:00 MS/extremity: Positive for pain, swelling, tenderness, of the right ankle, left great toe pain . Exam: 20:00 Constitutional: This is a well developed, well nourished patient who is awake, alert, pm1 and in no acute distress. Head/Face: Normocephalic, atraumatic. Eyes: Pupils equal round and reactive to light, extra-ocular motions intact. Lids and lashes normal. Conjunctiva and sclera are non-icteric and not injected. Cornea within normal limits. Periorbital areas with no swelling, redness, or edema. ENT: Nares patent. No nasal discharge, no septal abnormalities noted. Tympanic membranes are normal and external auditory canals are clear. Oropharynx with no redness, swelling, or masses, exudates, or evidence of obstruction, uvula midline. Mucous membranes moist. Neck: Trachea midline, no thyromegaly or masses palpated, and no cervical lymphadenopathy. Supple, full range of motion without nuchal rigidity, or vertebral point tenderness. No Meningismus. Chest/axilla: Normal chest wall appearance and motion. Nontender with no deformity. No lesions are appreciated. Cardiovascular: Regular rate and rhythm with a normal S1 and S2. No gallops, murmurs, or rubs. Normal PMI, no JVD. No pulse deficits. Respiratory: Lungs have equal breath sounds bilaterally, clear to auscultation and percussion. No rales, rhonchi or wheezes noted. No increased work of breathing, no retractions or nasal flaring. Abdomen/GI: Soft, non-tender, with normal bowel sounds. No distension or tympany. No guarding or rebound. No evidence of tenderness throughout. Back: No spinal tenderness. No costovertebral tenderness. Full range of motion. Skin: Warm, dry with normal turgor. Normal color with no rashes, no lesions, and no evidence of cellulitis. 20:00 Musculoskeletal/extremity: Extremities: grossly normal except: noted in the lateral right ankle: swelling, tenderness, noted in the left first toe: tenderness. 20:00 Neuro: Orientation: is normal, Motor: is normal, moves all fours. Vital Signs: 18:28 BP 116 / 69; Pulse 88; Resp 16; Temp 98.5; Pulse Ox 100% ; Weight 87.54 kg; Height 5 sv ft. 6 in. (167.64 cm); Pain 8/10; 21:40 BP 108 / 60; Pulse 63; Resp 18; Pulse Ox 100% on R/A; aj1 18:28 Body Mass Index 31.15 (87.54 kg, 167.64 cm) sv Procedures: 22:00 Splinting: Splint applied to right ankle using Orthoglass splint, applied by tech. pm1 Examined by me, post splint application: neurovascular intact, 2+ distal pulses palpable, brisk capillary refill noted, Patient tolerated well. MDM: 18:50 Patient medically screened. pm1 21:28 Data reviewed: vital signs. Data interpreted: Pulse oximetry: on room air is 100 %. pm1 Interpretation: normal. Counseling: I had a detailed discussion with the patient and/or guardian regarding: the historical points, exam findings, and any diagnostic results supporting the discharge/admit diagnosis, radiology results, the need for outpatient follow up, to return to the emergency department if symptoms worsen or persist or if there are any questions or concerns that arise at home. 09/04 18:54 Order name: Ankle Right 3 View XRAY; Complete Time: 21:27 pm1 09/04 18:54 Order name: Foot Left 3 View XRAY; Complete Time: 21:27 pm1 09/04 21:29 Order name: Splint - Ankle: Orthoglass: Stirrup; Complete Time: 21:39 pm1 09/04 21:44 Order name: Posterior Orthoglass Ankle Splint; Complete Time: 22:10 pm1 Administered Medications: 19:24 Drug: [place] 10 mg-325 mg 1 tabs Route: PO; aj1 21:39 Follow up: Response: No adverse reaction aj1 19:24 Drug: Ibuprofen 600 mg Route: PO; aj1 21:39 Follow up: Response: No adverse reaction aj1 Disposition: 09/05 09:38 Co-signature as Attending Physician, Howie Crow MD. Disposition: 09/04/18 21:37 Discharged to Home. Impression: Fracture of lateral malleolus - avulsion right, Unspecified sprain of left great toe. - Condition is Stable. - Discharge Instructions: Ankle Fracture, Crutch Use. - Prescriptions for Tylenol- Codeine #3 300-30 mg Oral Tablet - take 2 tablets by ORAL route every 6 hours As needed; 20 tablet. - Medication Reconciliation Form, Thank You Letter, Antibiotic Education, Prescription Opioid Use form. - Follow up: Emergency Department; When: As needed; Reason: Worsening of condition. Follow up: Hakan Brown MD; When: 2 - 3 days; Reason: Recheck today's complaints, Continuance of care, Re-evaluation by your physician. - Problem is new. - Symptoms have improved. Signatures: Dispatcher [employer] Bárbara Morris, RN RN aj1 Mariposa Kaiser RN RN sv Wilder Sharma, SUPERVISOR [employer] SUPERVISOR [employer]INGS pm1 Howie Crow MD MD Corrections: (The following items were deleted from the chart) 09/04 21:39 21:29 Crutches ordered. pm1 aj1 22:13 21:37 09/04/2018 21:37 Discharged to Home. Impression: Fracture of lateral malleolus - aj1 avulsion right; Unspecified sprain of left great toe. Condition is Stable. Forms are Medication Reconciliation Form, Thank You Letter, Antibiotic Education, Prescription Opioid Use. Follow up: Emergency Department; When: As needed; Reason: Worsening of condition. Follow up: Hakan Brown; When: 2 - 3 days; Reason: Recheck today's complaints, Continuance of care, Re-evaluation by your physician. Problem is new. Symptoms have improved. pm1
--- NOTE | 2018-09-04 21:38 | ER ---
Nurse's Notes [facility] Name: Bernice Akers Age: 43 yrs Sex: Female : 1975 Arrival Date: 09/04/2018 Time: 18:23 Bed Treatment Private MD: Alvaro Gaytan Diagnosis: Fracture of lateral malleolus-avulsion right;Unspecified sprain of left great toe Presentation: 09/04 18:27 Presenting complaint: Patient states: slipped off the edge of a sidewalk and injured sv her right ankle and left foot. Care prior to arrival: None. 18:27 Acuity: IZABEL 4 sv 18:27 Method Of Arrival: Wheelchair sv 18:28 Transition of care: patient was not received from another setting of care. Onset of sv symptoms was September 03, 2018. 21:41 Risk Assessment: Do you want to hurt yourself or someone else? Patient reports no aj1 desire to harm self or others. Initial Sepsis Screen: Does the patient meet any 2 criteria? No. Patient's initial sepsis screen is negative. Does the patient have a suspected source of infection? No. Patient's initial sepsis screen is negative. Triage Assessment: 18:27 General: Appears in no apparent distress. uncomfortable, Behavior is calm, cooperative, sv appropriate for age. Pain: Complains of pain in instep of left foot and right ankle Pain currently is 8 out of 10 on a pain scale. Pain began 1 day ago. Is intermittent, episodic, Aggravated by increased activity, weight bearing. Neuro: Level of Consciousness is awake, alert, obeys commands, Oriented to person, place, time, situation. Respiratory: Respiratory effort is even, unlabored, Respiratory pattern is regular, symmetrical. Musculoskeletal: Swelling present in right ankle. Historical: - Allergies: 18:28 NKA; sv - PMHx: 18:28 BELLS PALSY AT 13 YRS OLD; sv - PSHx: 18:28 Hysterectomy; Knee surgery; sv - Immunization history:: Adult Immunizations up to date. - Social history:: Smoking status: unknown. - Ebola Screening: : Patient denies travel to an Ebola-affected area in the 21 days before illness onset. Screenin:13 Abuse screen: Denies threats or abuse. Denies injuries from another. Nutritional aj1 screening: No deficits noted. Tuberculosis screening: No symptoms or risk factors identified. 21:41 Fall Risk Fall in past 12 months (25 points). Secondary diagnosis (15 points) impaired aj1 mobility, No IV (0 pts). Ambulatory Aid- Crutches/Cane/Walker (15 pts). Gait- Impaired (20 pts.). Mental Status- Oriented to own ability (0 pts). Total Valentine Fall Scale indicates High Risk Score (45 or more points). As available patient and family educated on Fall Prevention Program and Strategies. Assessment: 19:13 General: Appears in no apparent distress. uncomfortable, Behavior is calm, cooperative, aj1 appropriate for age. Pain: Complains of pain in left foot and right ankle Pain currently is 8 out of 10 on a pain scale. Neuro: Level of Consciousness is awake, alert, obeys commands, Oriented to person, place, time, situation. Cardiovascular: Patient's skin is warm and dry. Respiratory: Airway is patent Respiratory effort is even, unlabored, Respiratory pattern is regular, symmetrical. GI: No signs and/or symptoms were reported involving the gastrointestinal system. : No signs and/or symptoms were reported regarding the genitourinary system. EENT: No signs and/or symptoms were reported regarding the EENT system. Derm: No signs and/or symptoms reported regarding the dermatologic system. Skin is pink, warm \T\ dry. black. Musculoskeletal: Range of motion: limited in right ankle. 20:30 Reassessment: Patient appears in no apparent distress at this time. No changes from aj1 previously documented assessment. Patient and/or family updated on plan of care and expected duration. Pain level reassessed. Patient is alert, oriented x 3, equal unlabored respirations, skin warm/dry/pink. 21:39 Reassessment: Patient appears in no apparent distress at this time. No changes from aj1 previously documented assessment. Patient and/or family updated on plan of care and expected duration. Pain level reassessed. Patient is alert, oriented x 3, equal unlabored respirations, skin warm/dry/pink. 22:12 Reassessment: Splint checked by Colt Sharma NP. No changes needed at this time. OK to aj1 discharge patient home. Vital Signs: 18:28 BP 116 / 69; Pulse 88; Resp 16; Temp 98.5; Pulse Ox 100% ; Weight 87.54 kg; Height 5 sv ft. 6 in. (167.64 cm); Pain 8/10; 21:40 BP 108 / 60; Pulse 63; Resp 18; Pulse Ox 100% on R/A; aj1 18:28 Body Mass Index 31.15 (87.54 kg, 167.64 cm) ED Course: 18:23 Patient arrived in ED. mr 18:24 Alvaro Gaytan MD is Private Physician. mr 18:28 Triage completed. sv 18:29 Arm band placed on. sv 18:33 Wilder Sharma NP is PHCP. pm1 18:33 Howie Crow MD is Attending Physician. pm1 19:05 Bárbara Boykin RN is Primary Nurse. aj1 19:13 Patient has correct armband on for positive identification. Bed in low position. Call aj1 light in reach. Side rails up X 1. 19:13 No provider procedures requiring assistance completed. aj1 19:18 Ankle Right 3 View XRAY In Process Unspecified. EDMS 19:18 Foot Left 3 View XRAY In Process Unspecified. EDMS 21:37 Hakan Brown MD is Referral Physician. pm1 21:40 Patient did not have IV access during this emergency room visit. aj1 21:54 Orthoglass splint: Posterior short lleg splint applied on stirrup splint applied on oe right leg. Administered Medications: 19:24 Drug: [place] 10 mg-325 mg 1 tabs Route: PO; aj1 21:39 Follow up: Response: No adverse reaction aj1 19:24 Drug: Ibuprofen 600 mg Route: PO; aj1 21:39 Follow up: Response: No adverse reaction aj1 Outcome: 21:37 Discharge ordered by . pm1 22:12 Discharged to home via wheelchair. aj1 22:12 Condition: good 22:12 Discharge instructions given to patient, family, Instructed on discharge instructions, follow up and referral plans. no drinking with medication, no driving heavy equipment, medication usage, Demonstrated understanding of instructions, follow-up care, medications, Prescriptions given X 1. 22:13 Patient left the ED. aj1 Signatures: Dispatcher [employer] EDMS Bárbara Boykin RN RN aj Mariposa Kaiser RN RN Justina España mr Wilder Sharma, TRACK LAYING EQUIPMENT OPERATOR TRACK LAYING EQUIPMENT OPERATOR pm1 Clarke, Conor oe Corrections: (The following items were deleted from the chart) 21:54 21:40 Orthoglass splint: stirrup splint applied on right leg. by MARIA FERNANDA Perdomo oe
[2018-09-04 22:33] VITALS: TEMP 98.5; O2SAT 100
[2018-09-04 22:36] VITALS: BP 108/60
== END 2018-09-04 22:13 | disposition home or self-care (01) ==
LOC: ER 18:20
PROC: 2W3QX1Z Immobilization of Right Lower Leg using Splint (ICD-10-PCS; principal; 2018-09-04)
DX: S82.61XA Displaced fracture of lateral malleolus of right fibula, initial encounter for closed fracture (principal); S93.502A Unspecified sprain of left great toe, initial encounter; W18.30XA Fall on same level, unspecified, initial encounter; Y93.01 Activity, walking, marching and hiking
CPT/HCPCS: 99284

== ENCOUNTER 2019-02-21 11:07 | Emergency (ER) | payer BC ==
[2019-02-21] MEDS ORDERED: MORPHINE 4 MG/ML SYR ONE (12:06)
[2019-02-21] MEDS ORDERED: ONDANSETRON 4 MG/2 ML VIAL ONE (12:06)
[2019-02-21 12:18] LABS: Absolute Lymphocytes (CBC) 3.2 K/uL (0.7-4.9); Basophils % 0.7 % (0-1.3); Hematocrit 41.2 % (36.0-45.0); Lymphocytes % 35.8 % (15.3-44.8); MPV 8.1 fL (7.6-11.3); RBC Red Blood Cell Count 4.85 M/uL (3.86-4.86)
[2019-02-21 12:24] LABS: Protime INR 1.01
[2019-02-21 12:34] LABS: ALT/SGPT 15 U/L (12-78); AST/SGOT 12 U/L (15-37); Albumin 4.2 g/dL (3.4-5.0); Alkaline Phosphatase 36 U/L (45-117); BUN Blood Urea Nitrogen 9 mg/dL (7-18); Bicarbonate 28 mmol/L (21-32); Bilirubin Direct 0.1 mg/dL (0-0.2); Bilirubin Total 0.5 mg/dL (0.2-1.0); Glucose Level 87 mg/dL (74-106); Lipase 191 U/L (73-393); NT PRO-BNP 51 pg/mL (<125); Potassium 4.3 mmol/L (3.5-5.1); Protein, Total 7.7 g/dL (6.4-8.2); Sodium Level 141 mmol/L (136-145); Troponin (Emerg Dept Use Only) < 0.02 ng/mL (0.0-0.045)
--- NOTE | 2019-02-21 12:34 | EKG ---
Test Date: 2019-02-21 Test Time: 12:17:55 Wedding Planner: LAKISHA MEASUREMENT RESULTS: Intervals: Rate: 81 RI: 116 QRSD: 86 QT: 372 QTc: 432 [place]: P: 48 RI: 116 QRS: 35 T: 25 INTERPRETIVE STATEMENTS: Normal sinus rhythm with sinus arrhythmia Nonspecific T wave abnormality Abnormal ECG Compared to ECG 10/10/2017 09:56:33 T-wave abnormality now present Electronically Signed On 02-21-19 12:33:22 CDT by Luis M Hoff
--- NOTE | 2019-02-21 12:40 | RAD REPORT ---
EXAM DESCRIPTION: RAD - Chest Single View - 02/21/2019 12:09 pm CLINICAL HISTORY: Chest pain, left-sided back pain COMPARISON: Portable chest September 2017 TECHNIQUE: AP portable chest image was obtained 1206 hours . FINDINGS: No peripheral mass or consolidations seen. Interstitial pattern matches the comparison jose d dy. Pulmonary artery enlargement is evident due to the affects of shallow inspiration. True pulmonary artery enlargement or hilar lymphadenopathy unlikely. Heart and vasculature are normal. No measurable pleural effusion and no pneumothorax. No acute bony abnormality seen. No acute aortic findings suspected. IMPRESSION: Limited portable study felt to be without acute cardiopulmonary finding.
[2019-02-21 12:47] LABS: Urine Blood NEGATIVE (NEG); Urine Glucose NEGATIVE (NEG); Urine Protein NEGATIVE (NEG)
[2019-02-21] MEDS ORDERED: DIAZEPAM 10 MG/2 ML INJ SYRINGE ONE (13:37)
--- NOTE | 2019-02-21 13:42 | RAD REPORT ---
EXAM DESCRIPTION: CT - Chest For Pe Angio - 02/21/2019 1:31 pm CLINICAL HISTORY: Chest pain. left sided thoracic pain COMPARISON: CTANGIO CHEST FOR PE dated 08/04/2009 TECHNIQUE: CT angiogram of the pulmonary arteries was performed with MIP. All CT scans are performed using dose optimization technique as appropriate and may include automated exposure control or mA/KV adjustment according to patient size. FINDINGS: No evidence of pulmonary thromboembolism. No acute aortic abnormality. Mild interstitial pulmonary edema. No significant pericardial or pleural fluid. No concerning bony finding. IMPRESSION: No evidence of pulmonary thromboembolism. Mild interstitial pulmonary edema.
--- NOTE | 2019-02-21 14:26 | ER ---
Nurse's Notes [facility] Name: Bernice Akers Age: 43 yrs Sex: Female : 1975 Arrival Date: 02/21/2019 Time: 11:08 Bed 13 Private MD: Diagnosis: Strain of muscle and tendon of back wall of thorax Presentation: 02/21 11:25 Presenting complaint: Patient states: L mid back pain x 2 days. Denies injury. ss Transition of care: patient was not received from another setting of care. Onset of symptoms was February 19, 2019. Risk Assessment: Do you want to hurt yourself or someone else? Patient reports no desire to harm self or others. Initial Sepsis Screen: Does the patient meet any 2 criteria? No. Patient's initial sepsis screen is negative. Does the patient have a suspected source of infection? No. Patient's initial sepsis screen is negative. Care prior to arrival: None. 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 - Social history:: Smoking status: Patient uses tobacco products, smokes one-half pack cigarettes per day. - Ebola Screening: : Patient denies exposure to infectious person Patient denies travel to an Ebola-affected area in the 21 days before illness onset. Screenin:45 Abuse screen: Denies threats or abuse. Denies injuries from another. Nutritional ss screening: No deficits noted. Tuberculosis screening: Never had TB. Fall Risk None identified. Assessment: 11:45 General: Appears uncomfortable, Behavior is calm, cooperative. Pain: Complains of pain ss in left mid back Pain radiates to right mid back Pain currently is 8 out of 10 on a pain scale. Quality of pain is described as aching, Pain began 2-3 days ago. Is continuous, Aggravated by repositioning. Neuro: Level of Consciousness is awake, alert, obeys commands, Oriented to person, place, time, situation, Speech is normal. Cardiovascular: Capillary refill < 3 seconds is brisk in bilateral fingers Patient's skin is warm and dry. Respiratory: Airway is patent Respiratory effort is even, unlabored, Respiratory pattern is regular, symmetrical. GI: No signs and/or symptoms were reported involving the gastrointestinal system. : No signs and/or symptoms were reported regarding the genitourinary system. EENT: Oral mucosa is moist. Derm: Skin is intact, is healthy with good turgor, Skin is dry, Skin is pink, warm \T\ dry. normal. Musculoskeletal: Circulation, motion, and sensation intact. Range of motion: intact in all extremities, Swelling absent. 13:00 Reassessment: Patient appears in no apparent distress at this time. Patient and/or ph family updated on plan of care and expected duration. Pain level reassessed. Patient is alert, oriented x 3, equal unlabored respirations, skin warm/dry/pink. 14:44 Reassessment: Patient appears in no apparent distress at this time. Patient and/or ph family updated on plan of care and expected duration. Pain level reassessed. Patient is alert, oriented x 3, equal unlabored respirations, skin warm/dry/pink. Pt d/c home w/ prescription for muscle relaxer, instructed to follow up w/ PCP if symptoms persist. Vital Signs: 11:27 BP 121 / 82; Pulse 91; Resp 16; Temp 98.2(TE); Pulse Ox 99% on R/A; Weight 86.18 kg; Height 5 ft. 6 in. (167.64 cm); Pain 8/10; 13:49 BP 113 / 59; Pulse 80; Resp 18; Pulse Ox 95% on R/A; ph 14:45 BP 108 / 68; Pulse 78; Resp 18; Temp 98.7; Pulse Ox 99% on R/A; Pain 6/10; ph 11:27 Body Mass Index 30.67 (86.18 kg, 167.64 cm) ED Course: 11:08 Patient arrived in ED. rg4 11:26 Triage completed. 11:27 Arm band placed on right wrist. 11:28 Issa Adame PA is PHCP. [facility] 11:28 Dylon Smith MD is Attending Physician. [facility] 11:45 Patient has correct armband on for positive identification. Bed in low position. Call light in reach. 12:21 XRAY Chest (1 view) In Process Unspecified. EDMS 12:25 EKG done, by collection technician. reviewed by Issa SYKES. sm3 13:13 Renetta Murillo, RN is Primary Nurse. ph 13:33 CT Chest For PE Angio In Process Unspecified. EDMS 14:46 No provider procedures requiring assistance completed. IV discontinued, intact, ph bleeding controlled, No redness/swelling at site. Pressure dressing applied, IV 20G to RAC started by ED staff. Administered Medications: 12:19 Drug: Zofran 4 mg Route: IVP; Site: right antecubital; la1 13:48 Follow up: Response: No adverse reaction ph 12:20 Drug: morphine 4 mg Route: IVP; Site: right antecubital; la1 13:00 Follow up: Response: No adverse reaction; Pain is unchanged, physician notified; RASS: ph Alert and Calm (0) 13:47 Drug: Valium 2 mg Route: IVP; Site: right antecubital; ph 14:43 Follow up: Response: No adverse reaction; Pain is decreased ph Outcome: 14:24 Discharge ordered by MD. méndez 14:51 Patient left the ED. ph 14:51 Discharged to home ambulatory, with family. ph 14:51 Condition: good 14:51 Discharge instructions given to patient, Instructed on discharge instructions, follow up and referral plans. medication usage. Signatures: Dispatcher [employer] EDNY Issa Adame PA PA jmm Smirch, Shelby, RN RN ss Attema, Lee, RN RN ma1 Renetta Murillo, MAURICIO MARTÍNEZ Myesha eMraz 4 Claudine Wong 3
--- NOTE | 2019-02-21 14:27 | EDPHYS ---
Physician Documentation [facility] Name: Bernice Akers Age: 43 yrs Sex: Female : 1975 Arrival Date: 02/21/2019 Time: 11:08 Bed 13 Private MD: ED Physician Dylon Smith HPI: 02/21 11:28 This 43 yrs old Female presents to ER via Ambulatory with complaints of Back jmm Pain. 11:28 The patient presents with pain that is acute, with no known mechanism of injury. The jmm symptoms are located in the left subscapular area and left mid back. Onset: The symptoms/episode began/occurred gradually, 2 day(s) ago. The pain does not radiate. Associated signs and symptoms: Pertinent negatives: abdominal pain, chest pain, dysuria, fever, hematuria, incontinence, vomiting, weakness. This is a 43 year old female with a history of GERD that presents to the ED with complaints of left upper back pain which began approx 2 days ago. Denies fever, denies injury, denies shortness of breath, denies abdominal pain, denies chest pain. . 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 - Social history:: Smoking status: Patient uses tobacco products, smokes one-half pack cigarettes per day. - Ebola Screening: : Patient denies exposure to infectious person Patient denies travel to an Ebola-affected area in the 21 days before illness onset. ROS: 11:28 Constitutional: Negative for fever, chills, and weight loss, Cardiovascular: Negative jmm for chest pain, palpitations, and edema, Respiratory: Negative for shortness of breath, cough, wheezing, and pleuritic chest pain, Abdomen/GI: Negative for abdominal pain, nausea, vomiting, diarrhea, and constipation. 11:28 Back: Positive for pain at rest. 11:28 All other systems are negative. Exam: 11:28 Constitutional: This is a well developed, well nourished patient who is awake, alert, jmm and in no acute distress. Head/Face: atraumatic. Eyes: EOMI, no conjunctival erythema appreciated ENT: Moist Mucus Membranes Neck: Trachea midline, Supple Chest/axilla: Normal chest wall appearance and motion. Cardiovascular: Regular rate and rhythm. No edema appreciated Respiratory: Normal respirations, no respiratory distress appreciated Abdomen/GI: Non distended, soft 11:28 Back: mild left paraspinal thoracic pain on palpation, no rash, no midline tenderness. . 11:28 Musculoskeletal/extremity: ROM: intact in all extremities. 11:28 Skin: Appearance: Color: normal in color. 11:28 Neuro: Orientation: is normal, Mentation: is normal, Memory: is normal. 11:28 Psych: Behavior/mood is pleasant, cooperative. Vital Signs: 11:27 BP 121 / 82; Pulse 91; Resp 16; Temp 98.2(TE); Pulse Ox 99% on R/A; Weight 86.18 kg; ss Height 5 ft. 6 in. (167.64 cm); Pain 8/10; 13:49 BP 113 / 59; Pulse 80; Resp 18; Pulse Ox 95% on R/A; ph 14:45 BP 108 / 68; Pulse 78; Resp 18; Temp 98.7; Pulse Ox 99% on R/A; Pain 6/10; ph 11:27 Body Mass Index 30.67 (86.18 kg, 167.64 cm) ss MDM: 11:28 Patient medically screened. [facility] [place] 14:22 Data reviewed: vital signs, nurses notes. Counseling: I had a detailed discussion with dev the patient and/or guardian regarding: the historical points, exam findings, and any diagnostic results supporting the discharge/admit diagnosis, lab results, radiology results, the need for outpatient follow up, to return to the emergency department if symptoms worsen or persist or if there are any questions or concerns that arise at home. ED course: Differential includes herpes zoster, thoracic strain. CT chest negative for PE. Cardiac enzymes normal. I do not suspect an acute intrathoracic process or ACS. Patient advised to follow up with PCP and otherwise given strict return precautions. Patient understood and agrees with the plan of care. . 02/21 11:48 Order name: Basic Metabolic Panel; Complete Time: 12:44 [facility] [place] 02/21 11:48 Order name: CBC with Diff; Complete Time: 12:44 [facility] [place] 02/21 11:48 Order name: LFT's; Complete Time: 12:44 [facility] [place] 02/21 11:48 Order name: Magnesium; Complete Time: 12:44 [facility] [place] 02/21 11:48 Order name: NT PRO-BNP; Complete Time: 12:44 [facility] [place] 02/21 11:48 Order name: PT-INR; Complete Time: 12:44 [facility] [place] 02/21 11:48 Order name: Troponin (emerg Dept Use Only); Complete Time: 12:44 [facility] [place] 02/21 11:48 Order name: XRAY Chest (1 view); Complete Time: 12:47 [facility] [place] 02/21 11:48 Order name: Lipase; Complete Time: 12:44 [facility] [place] 02/21 12:15 Order name: Urine Dipstick--Ancillary (enter results); Complete Time: 12:49 02/21 13:15 Order name: CT Chest For PE Angio; Complete Time: 13:48 [facility] [place] 02/21 11:48 Order name: EKG; Complete Time: 11:49 [facility] [place] 02/21 11:48 Order name: Cardiac monitoring; Complete Time: 13:14 [facility] [place] 02/21 11:48 Order name: EKG - Nurse/Tech; Complete Time: 12:21 [facility] [place] 02/21 11:48 Order name: IV Saline Lock; Complete Time: 12:21 [facility] [place] 02/21 11:48 Order name: Labs collected and sent; Complete Time: 12:21 [facility] [place] 02/21 11:48 Order name: O2 Per Protocol; Complete Time: 12:21 [facility] [place] 02/21 11:48 Order name: O2 Sat Monitoring; Complete Time: 12:21 [facility] [place] 02/21 11:48 Order name: Urine Dipstick-Ancillary (obtain specimen); Complete Time: 12:20 [facility] [place] Administered Medications: 12:19 Drug: Zofran 4 mg Route: IVP; Site: right antecubital; la1 13:48 Follow up: Response: No adverse reaction ph 12:20 Drug: morphine 4 mg Route: IVP; Site: right antecubital; la1 13:00 Follow up: Response: No adverse reaction; Pain is unchanged, physician notified; RASS: ph Alert and Calm (0) 13:47 Drug: Valium 2 mg Route: IVP; Site: right antecubital; ph 14:43 Follow up: Response: No adverse reaction; Pain is decreased ph Disposition: 02/22 06:43 Co-signature as Attending Physician, Dylon Smith MD I agree with the assessment and sophia plan of care. Disposition: 02/21/19 14:24 Discharged to Home. Impression: Strain of muscle and tendon of back wall of thorax. - Condition is Stable. - Discharge Instructions: Thoracic Strain. - Prescriptions for Zanaflex 4 mg Oral Tablet - take 1 tablet by ORAL route every 8 hours As needed; 20 tablet. - Medication Reconciliation Form, Thank You Letter, Antibiotic Education, Prescription Opioid Use form. - Follow up: Private Physician; When: 2 - 3 days; Reason: Recheck today's complaints, Continuance of care, Re-evaluation by your physician. Signatures: Dispatcher [employer] EDDylon Funes MD MD cha Mickail, Joel, PA PA jmm Smirch, Shelby, MAURICIO RN ss Camron Barber RN RN la1 Renetta Murillo RN RN ph Corrections: (The following items were deleted from the chart) 02/21 14:51 14:24 02/21/2019 14:24 Discharged to Home. Impression: Strain of muscle and tendon of ph back wall of thorax. Condition is Stable. Forms are Medication Reconciliation Form, Thank You Letter, Antibiotic Education, Prescription Opioid Use. Follow up: Private Physician; When: 2 - 3 days; Reason: Recheck today's complaints, Continuance of care, Re-evaluation by your physician. dev
[2019-02-21 15:16] VITALS: BP 108/68; TEMP 98.7; O2SAT 99
== END 2019-02-21 14:51 | disposition home or self-care (01) ==
LOC: ER 11:07
DX: S29.012A Strain of muscle and tendon of back wall of thorax, initial encounter (principal); F17.210 Nicotine dependence, cigarettes, uncomplicated; K21.9 Gastro-esophageal reflux disease without esophagitis
CPT/HCPCS: 93005; 85025; 80048; 36415; 83735; 85610; 80076; 81003; 84484; 83690; 83880; 71275; 71045; 96375; 96374; 99283; Q9967; J3360; J2405

== ENCOUNTER 2019-09-12 18:40 | Emergency (ER) | payer BC ==
--- OUTSIDE RECORDS SUMMARY | 2019-09-12 18:42 | XMS REPORT ---
:1975 Author Organization [facility] t Address [address] [place] [address] [address] [place] [address] Care Team Providers Name Role Phone Unavailable Unavailable Unavailable Problems This patient has no known problems. Allergies, Adverse Reactions, Alerts This patient has no known allergies or adverse reactions. Medications This patient has no known medications. Results Test Description Test Time Test Comments Text Results Atomic Results Result Comments SCR MAMM BILATERAL MAINOR 2018-10-12 14:18:16 - SCR [facility] M BILATERAL MAINOR CAD CAD DIGITAL DIGITALBILATERAL FIRST EVER DIGITAL SCREENING MAMMOGRAM 3D/2D WI TH CAD: 10/11/2018CLINICAL: Asymptoma tic. Digital breast tomosynthesis was performed in addition to rou natasha CC and MLO views. Current mammographic images were myrtle luated by either a [employer] M-Vu or a [employer] ImageChecker CAD (Fenergouter aided detection system). No prior exams were available for comparison. This is a basel ine exam.There are scattered fibroglandular tissues in cecilia th breasts. There is a benign calcification in the right b reast and in the areola of the rig ht breast. No suspicious mass, architectural distortion, ma lignant type calcification, or lymph node abnormality detected. IMPRE SSION: BENIGNThere is no mammograph ic evidence of malignancy. Resu me annual screening mammography in one year. Husam Reed M.D. rb/:10/12/2018 14:18:16 Evon lizzy Technologist: Kimberlyn To i, MM, [facility] Mammography lulú sent: [facility]: 2 Benign
[2019-09-12] MEDS ORDERED: predniSONE 20 MG TAB ONE (19:08)
[2019-09-12] MEDS ORDERED: KETOROLAC 30 MG/ML INJ ONE (19:53)
--- NOTE | 2019-09-12 20:52 | ER ---
Nurse's Notes [facility] Name: Bernice Akers Age: 44 yrs Sex: Female : 1975 Arrival Date: 09/12/2019 Time: 18:43 Bed 5 Private MD: Diagnosis: Pain in right hand;Pain in left hand;Pain in right leg Presentation: 09/11 18:55 Chief complaint: Patient states: Stiffness and pain on R knee, fingers on both hands, L ca1 wrist x 2 days. Swelling on R knee since yesterday. Coronavirus screen: Proceed with normal triage. Patient denies a cough. Patient denies shortness of breath or difficulty breathing. Patient denies measured and/or subjective temperature greater than 100.4F prior to today's visit. Patient denies travel on a cruise ship or to a country the [facility] currently lists as an affected area. Patient denies contact with known and/or suspected case of COVID-19. Ebola Screen: Patient negative for fever greater than or equal to 101.5 degrees Fahrenheit, and additional compatible Ebola Virus Disease symptoms Patient denies exposure to infectious person. Patient denies travel to an Ebola-affected area in the 21 days before illness onset. No symptoms or risks identified at this time. Initial Sepsis Screen: Does the patient meet any 2 criteria? No. Patient's initial sepsis screen is negative. Does the patient have a suspected source of infection? No. Patient's initial sepsis screen is negative. Risk Assessment: Do you want to hurt yourself or someone else? Patient reports no desire to harm self or others. Onset of symptoms was September 12, 2019. 18:55 Method Of Arrival: Ambulatory ca1 18:55 Acuity: IZABEL 4 ca1 Triage Assessment: 18:57 General: Appears in no apparent distress. comfortable, Behavior is calm, cooperative, ca1 appropriate for age. Pain: Complains of pain in right hand, left hand and right knee Pain currently is 9 out of 10 on a pain scale. Pain began 1 day ago. EENT: No signs and/or symptoms were reported regarding the EENT system. Neuro: Level of Consciousness is awake, alert, obeys commands, Oriented to person, place, time, situation, Appropriate for age. Cardiovascular: Heart tones S1 S2 present Capillary refill < 3 seconds Patient's skin is warm and dry. Respiratory: Airway is patent Respiratory effort is even, unlabored, Respiratory pattern is regular, symmetrical, Breath sounds are clear bilaterally. GI: Abdomen is round non-distended, Bowel sounds present X 4 quads. Abd is soft and non tender X 4 quads. : No signs and/or symptoms were reported regarding the genitourinary system. Derm: Skin is intact, is healthy with good turgor, Skin is. Musculoskeletal: Circulation, motion, and sensation intact. Capillary refill < 3 seconds. 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 - Social history:: Smoking status: Patient reports the use of cigarette tobacco products, smokes one pack cigarettes per day. Screenin:59 Abuse screen: Denies threats or abuse. Denies injuries from another. Nutritional ca1 screening: No deficits noted. Tuberculosis screening: No symptoms or risk factors identified. Fall Risk None identified. Assessment: 18:59 Reassessment: SEE TRIAGE ASSESSMENT. ca1 19:15 General: Appears in no apparent distress. uncomfortable, Behavior is calm, cooperative, rr5 appropriate for age. 19:15 Pain: Complains of pain in right hand, left hand and right leg Pain does not radiate. rr5 Pain currently is 10 out of 10 on a pain scale. Quality of pain is described as aching, Pain began gradually, Is intermittent. Neuro: Level of Consciousness is awake, alert, obeys commands, Oriented to person, place, time, situation, Appropriate for age. Cardiovascular: Capillary refill < 3 seconds Patient's skin is warm and dry. Respiratory: Airway is patent Respiratory effort is even, unlabored, Respiratory pattern is regular, symmetrical. GI: No signs and/or symptoms were reported involving the gastrointestinal system. : No signs and/or symptoms were reported regarding the genitourinary system. EENT: No signs and/or symptoms were reported regarding the EENT system. Derm: Skin is intact, is healthy with good turgor, Skin is pink, warm \T\ dry. Musculoskeletal: Circulation, motion, and sensation intact. Capillary refill < 3 seconds, Swelling present in right hand, left hand and right leg. 20:00 Reassessment: Patient appears in no apparent distress at this time. Patient is alert, rr5 oriented x 3, equal unlabored respirations, skin warm/dry/pink. ultrasound at bedside. 20:57 Reassessment: Patient appears in no apparent distress at this time. Patient is alert, rr5 oriented x 3, equal unlabored respirations, skin warm/dry/pink. discharge instruction given and explained without complaints made. Vital Signs: 18:55 BP 123 / 95; Pulse 106; Resp 20 S; Temp 97.4(O); Pulse Ox 100% on R/A; Weight 88.45 kg ca1 (R); Height 5 ft. 4 in. (162.56 cm) (R); Pain 9/10; 19:30 BP 114 / 74; Pulse 96; Resp 19; Temp 98.4; Pulse Ox 99% on R/A; rr5 20:23 BP 114 / 73; Pulse 85; Resp 17; Pulse Ox 98% on R/A; rr5 20:56 BP 112 / 85; Pulse 80; Resp 16; Pulse Ox 98% on R/A; rr5 18:55 Body Mass Index 33.47 (88.45 kg, 162.56 cm) ca1 ED Course: 18:43 Patient arrived in ED. as 18:48 Barbie Mccullough FNP-C [facility]. kb 18:48 Arnaldo Bocanegra MD is Attending Physician. kb 18:55 Aline Valencia RN is Primary Nurse. ca1 18:55 Patient has correct armband on for positive identification. ca1 18:57 Triage completed. ca1 18:57 Arm band placed on right wrist. ca1 18:59 No provider procedures requiring assistance completed. Patient did not have IV access ca1 during this emergency room visit. 20:32 US Extremity Venous Unilateral Ltd In Process Unspecified. EDMS Administered Medications: 19:04 Drug: predniSONE 60 mg Route: PO; ca1 19:45 Follow up: Response: No adverse reaction mg2 19:50 Drug: TORadol 30 mg Route: IM; Site: right deltoid; rr5 20:57 Follow up: Response: No adverse reaction rr5 Outcome: 20:51 Discharge ordered by . kb 20:57 Patient left the ED. rr5 Signatures: Dispatcher [employer] EDMS Barbie Mccullough, Jeni Rausch Michele, RN RN mg2 [place], RN RN rr5 Aline Valencia RN RN ca1
--- NOTE | 2019-09-12 20:52 | EDPHYS ---
Physician Documentation [facility] Name: Bernice Akers Age: 44 yrs Sex: Female : 1975 Arrival Date: 09/12/2019 Time: 18:43 Bed 5 Private MD: ED Physician Arnaldo Bocanegra HPI: 09/11 21:40 This 44 yrs old Female presents to ER via Ambulatory with complaints of Hand kb Swelling, Leg Swelling. 21:52 The patient presents with pain, swelling. The complaints affect the right leg and left kb hand and right hand. Context: The problem was sustained at home, resulted from an unknown cause, the patient can fully bear weight, the patient is able to ambulate, Problem is a result from a previous injury: No. Onset: The symptoms/episode began/occurred 2 day(s) ago. Modifying factors: The symptoms are alleviated by nothing. the symptoms are aggravated by nothing. Associated signs and symptoms: Pertinent positives: swelling, Pertinent negatives calf tenderness, fever, nausea, numbness, rash, tingling, vomiting, warmth, weakness. Treatment prior to arrival includes: no previous treatment. Severity of symptoms: At their worst the symptoms were moderate, in the emergency department the symptoms are unchanged. The patient has not experienced similar symptoms in the past. The patient has not recently seen a physician. Pt reports pain and swelling to both hands and right leg. Denies injury. Reports pain is in joints. Full ROM. 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 - Social history:: Smoking status: Patient reports the use of cigarette tobacco products, smokes one pack cigarettes per day. ROS: 21:43 Constitutional: Negative for fever, chills, and weight loss, Cardiovascular: Negative kb for chest pain, palpitations, and edema, Respiratory: Negative for shortness of breath, cough, wheezing, and pleuritic chest pain, Abdomen/GI: Negative for abdominal pain, nausea, vomiting, diarrhea, and constipation, Back: Negative for injury and pain, Skin: Negative for injury, rash, and discoloration, Neuro: Negative for headache, weakness, numbness, tingling, and seizure. 21:43 MS/extremity: Positive for pain, swelling, of the right hand, left hand and right leg, Negative for injury or acute deformity, decreased range of motion, paresthesias. Exam: 21:44 Constitutional: This is a well developed, well nourished patient who is awake, alert, kb and in no acute distress. Head/Face: Normocephalic, atraumatic. Chest/axilla: Normal chest wall appearance and motion. Nontender with no deformity. No lesions are appreciated. Cardiovascular: Regular rate and rhythm with a normal S1 and S2. No gallops, murmurs, or rubs. Normal PMI, no JVD. No pulse deficits. Respiratory: Lungs have equal breath sounds bilaterally, clear to auscultation and percussion. No rales, rhonchi or wheezes noted. No increased work of breathing, no retractions or nasal flaring. Abdomen/GI: Soft, non-tender, with normal bowel sounds. No distension or tympany. No guarding or rebound. No evidence of tenderness throughout. Skin: Warm, dry with normal turgor. Normal color with no rashes, no lesions, and no evidence of cellulitis. Neuro: Awake and alert, GCS 15, oriented to person, place, time, and situation. Cranial nerves II-XII grossly intact. Motor strength 5/5 in all extremities. Sensory grossly intact. Cerebellar exam normal. Normal gait. 21:44 Musculoskeletal/extremity: Extremities: grossly normal except: noted in the left hand and right hand and right leg: pain, swelling, ROM: intact in all extremities, Circulation is intact in all extremities. Sensation intact. Weight bearing: able to fully bear weight. Vital Signs: 18:55 BP 123 / 95; Pulse 106; Resp 20 S; Temp 97.4(O); Pulse Ox 100% on R/A; Weight 88.45 kg ca1 (R); Height 5 ft. 4 in. (162.56 cm) (R); Pain 9/10; 19:30 BP 114 / 74; Pulse 96; Resp 19; Temp 98.4; Pulse Ox 99% on R/A; rr5 20:23 BP 114 / 73; Pulse 85; Resp 17; Pulse Ox 98% on R/A; rr5 20:56 BP 112 / 85; Pulse 80; Resp 16; Pulse Ox 98% on R/A; rr5 18:55 Body Mass Index 33.47 (88.45 kg, 162.56 cm) ca1 MDM: 18:48 Patient medically screened. kb 21:43 Data reviewed: vital signs, nurses notes. Data interpreted: Pulse oximetry: on room air kb is 98 %. Interpretation: normal. Counseling: I had a detailed discussion with the patient and/or guardian regarding: the historical points, exam findings, and any diagnostic results supporting the discharge/admit diagnosis, radiology results, the need for outpatient follow up, a family practitioner, to return to the emergency department if symptoms worsen or persist or if there are any questions or concerns that arise at home. 09/11 18:54 Order name: US Extremity Venous Unilateral Ltd kb Administered Medications: 19:04 Drug: predniSONE 60 mg Route: PO; ca1 19:45 Follow up: Response: No adverse reaction mg2 19:50 Drug: TORadol 30 mg Route: IM; Site: right deltoid; rr5 20:57 Follow up: Response: No adverse reaction rr5 Disposition: 09/12/19 20:51 Discharged to Home. Impression: Pain in right hand, Pain in left hand, Pain in right leg. - Condition is Stable. - Discharge Instructions: Musculoskeletal Pain, Arthritis, [id number]. - Prescriptions for Prednisone 20 mg Oral Tablet - take 1 tablet by ORAL route once daily for 5 days; 5 tablet. - Medication Reconciliation Form, Thank You Letter, Antibiotic Education, Prescription Opioid Use form. - Follow up: Emergency Department; When: As needed; Reason: Worsening of condition. Follow up: Private Physician; When: 2 - 3 days; Reason: Recheck today's complaints, Continuance of care, Re-evaluation by your physician. Addendum: 09/16/2019 10:13 Co-signature as Attending Physician, Arnaldo Bocanegra MD I agree with the assessment and k dr plan of care. Signatures: Dispatcher [employer] EDMS Barbie Mccullough, PROCESS EXCELLENCE MANAGER-C PROCESS EXCELLENCE MANAGER-CkArnaldo Mills MD MD [facility] [place] RN RN rr5 Aline Valencia RN RN ca1 Edgar Mcneill RN mg2 Corrections: (The following items were deleted from the chart) 09/11 20:57 20:51 09/12/2019 20:51 Discharged to Home. Impression: Pain in right hand; Pain in left rr5 hand; Pain in right leg. Condition is Stable. Forms are Medication Reconciliation Form, Thank You Letter, Antibiotic Education, Prescription Opioid Use. Follow up: Emergency Department; When: As needed; Reason: Worsening of condition. Follow up: Private Physician; When: 2 - 3 days; Reason: Recheck today's complaints, Continuance of care, Re-evaluation by your physician. kb 21:46 21:44 Musculoskeletal/extremity: Extremities: grossly normal except: noted in the left kb hand and right hand and right leg: pain, swelling, ROM: intact in all extremities, Circulation is intact in all extremities. Sensation intact. kb
--- NOTE | 2019-09-12 21:10 | RAD REPORT ---
EXAM DESCRIPTION: US - Extremity Venous Uni Ltd - 09/12/2019 8:32 pm CLINICAL HISTORY: Pain;Swelling COMPARISON: January 2017 TECHNIQUE: Real-time sonographic evaluation of the right lower extremity deep venous systems was per formed. FINDINGS: Normal compressibility, flow augmentation, phasic flow and spontaneous flow are identified in the right lower extremity common femoral, superficial femoral, popliteal and posterior tibial vei ns. No intraluminal filling defects seen. A 4 centimeter right popliteal fossa cyst is present. No cyst rupture or hemorrhage changes identifia ble. IMPRESSION: No DVT in the right lower extremity. Approximately 4 centimeter sized popliteal fossa cyst.
[2019-09-12 21:19] VITALS: TEMP 98.4
[2019-09-12 21:20] VITALS: O2SAT 98
[2019-09-12 21:21] VITALS: BP 112/85
== END 2019-09-12 20:57 | disposition home or self-care (01) ==
LOC: ER 18:40
DX: M79.642 Pain in left hand (principal); M79.641 Pain in right hand; M79.604 Pain in right leg; F17.210 Nicotine dependence, cigarettes, uncomplicated
CPT/HCPCS: 93971; 96372; 99283; J7512

== ENCOUNTER 2019-10-28 12:55 | Emergency (ER) | payer SELFPAY ==
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
[2019-10-28 15:24] VITALS: BP 125/80; TEMP 97.9; O2SAT 100
--- OUTSIDE RECORDS SUMMARY | 2019-10-28 16:18 | XMS REPORT | Continuity of Care Document ---
:1975 Author Organization [facility] t Address [address] [place] [address] [address] [place] [address] Care Team Providers Name Role Phone Unavailable Unavailable Unavailable Problems This patient has no known problems. Allergies, Adverse Reactions, Alerts This patient has no known allergies or adverse reactions. Medications This patient has no known medications. Procedures This patient has no known procedures. Results Test Description Test Time Test Comments Results Result [facility] e Comments SCR MAMM 2018-10-12 MAMM BILATERAL BILATERAL MAINOR 14:18:16 MAINOR CAD CAD DIGITAL DIGITALBILATERAL FIRST EVER DIGITAL SCREENING MAMMOGRAM 3D/2D WITH CAD: 10/11/2018CLINICAL: Asymptomatic. Digital breast tomosynthesis was performed in addition to routine CC and MLO views. Current mammographic images were evaluated by either a CiklumP M-Vu or a EnergyDeck[employer]ic ImageChecker CAD (computer aided detection system). No prior exams were available for comparison. This is a baseline exam.There are scattered fibroglandular tissues in both breasts. There is a benign calcification in the right breast and in the areola of the right breast. No suspicious mass, architectural distortion, malignant type calcification, or lymph node abnormality detected. IMPRESSION: BENIGNThere is no mammographic evidence of malignancy. Resume annual screening mammography in one year. Husam Reed M.D. rb/:10/12/2018 14:18:16 Noteman: Kimberlyn Finn MM, [facility] Mammographyletter sent: BIRADS 1-2 Normal Mammogram BI-RADS: 2 Benign
== END 2019-10-28 15:15 | disposition left against medical advice (07) ==
LOC: ER 12:55
DX: Z53.21 Procedure and treatment not carried out due to patient leaving prior to being seen by health care provider (principal)
CPT/HCPCS: 99281

== ENCOUNTER 2019-11-06 20:00 | Emergency (ER) | payer BC ==
--- OUTSIDE RECORDS SUMMARY | 2019-11-06 20:02 | XMS REPORT | Continuity of Care Document ---
:1975 Author Organization [facility] t Address [address] [place] [address] [address] [place] [address] Care Team Providers Name Role Phone Unavailable Unavailable Unavailable Problems This patient has no known problems. Allergies, Adverse Reactions, Alerts This patient has no known allergies or adverse reactions. Medications This patient has no known medications. Procedures This patient has no known procedures. Results Test Description Test Time Test Comments Results Result [facility] e Comments SCR MAMM 2018-10-12 MAMM BILATERAL BILATERAL MAINOR 14:18:16 MAINOR CAD CAD DIGITAL DIGITALBILATERAL FIRST EVER DIGITAL SCREENING MAMMOGRAM 3D/2D WITH CAD: 10/11/2018CLINICAL: Asymptomatic. Digital breast tomosynthesis was performed in addition to routine CC and MLO views. Current mammographic images were evaluated by either a ImpulcityP M-Vu or a Yooneed.comgic ImageChecker CAD (computer aided detection system). No [...] one year. Husam Reed M.D. rb/:10/12/2018 14:18:16 Front Office Director: Kimberlyn Finn MM, [facility] Mammographyletter sent: BIRADS 1-2 Normal Mammogram BI-RADS: 2 Benign
--- NOTE | 2019-11-06 21:14 | RAD REPORT ---
EXAM DESCRIPTION: Otis García (2 Views)11/06/2019 8:57 pm CLINICAL HISTORY: Chest pain COMPARISON: 2019 FINDINGS: The lungs appear clear of acute infiltrate. The heart is normal size IMPRESSION: No acute abnormalities displayed
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
[2019-11-06] MEDS ORDERED: DIAZEPAM 5 MG TABLET ONE (22:07)
[2019-11-06] MEDS ORDERED: HYDROCODONE/APAP 5/325 MG TAB ONE (22:08)
[2019-11-06 22:37] VITALS: BP 124/82; TEMP 97.8; O2SAT 99
== END 2019-11-06 22:17 | disposition home or self-care (01) ==
LOC: ER 20:00
DX: S22.32XA Fracture of one rib, left side, initial encounter for closed fracture (principal); W22.8XXA Striking against or struck by other objects, initial encounter; Y93.89 Activity, other specified; Y92.9 Unspecified place or not applicable; K21.9 Gastro-esophageal reflux disease without esophagitis
CPT/HCPCS: 71046; 99284

== ENCOUNTER 2020-09-10 13:06 | Emergency (ER) | payer BC ==
--- OUTSIDE RECORDS SUMMARY | 2020-09-10 13:08 | XMS REPORT | Continuity of Care Document ---
:1975 Author Organization [facility] t Address [address] [place] [address] Dr. Frye [address] [place] [id number] Care Team Providers Name Role Phone Unavailable Unavailable Unavailable Problems This patient has no known problems. Allergies, Adverse Reactions, Alerts This patient has no known allergies or adverse reactions. Medications This patient has no known medications. Procedures This patient has no known procedures. Results Test Description Test Time Test Comments Results Result Sourc e Comments SCR MAMM 2018-10-12 MAMM BILATERAL BILATERAL MAINOR 14:18:16 MAINOR CAD CAD DIGITAL DIGITALBILATERAL FIRST EVER DIGITAL SCREENING MAMMOGRAM 3D/2D WITH CAD: 10/11/2018CLINICAL: Asymptomatic. Digital breast tomosynthesis was performed in addition to routine CC and MLO views. Current mammographic images were evaluated by either a [employer] M-Vu or a [employer] ImageChecker CAD (computer aided detection system). No [...] one year. Husam Reed M.D. rb/:10/12/2018 14:18:16 Target Developer: Kimberlyn Finn MM, [facility] Mammographyletter sent: BIRADS 1-2 Normal Mammogram BI-RADS: 2 Benign
[2020-09-10] MEDS ORDERED: MORPHINE 4 MG/ML SYR ONE (14:05)
[2020-09-10] MEDS ORDERED: KETOROLAC 30 MG/ML INJ ONE (14:06)
[2020-09-10 14:58] LABS: Urine Blood Negative (Negative); Urine Glucose Negative (Negative); Urine Protein Negative (Negative); Urine Specific Gravity 1.015 (1.005-1.030)
[2020-09-10] MEDS ORDERED: MEPERIDINE HCL 50 MG/ML ONE (15:06)
--- NOTE | 2020-09-10 15:10 | EDPHYS ---
Physician Documentation [facility] Name: Bernice Akers Age: 45 yrs Sex: Female : 1975 Arrival Date: 09/10/2020 Time: 13:09 Bed 13 Private MD: ED Physician Everton Stout HPI: 09/10 13:40 This 45 yrs old Female presents to ER via Ambulatory with complaints of Low cp Back Pain. 13:40 The patient presents with pain that is acute, with no known mechanism of injury. The cp symptoms are located in the left low back. The pain radiates to the left buttock and left hip. Onset: The symptoms/episode began/occurred 3 day(s) ago. Associated signs and symptoms: Pertinent negatives: abdominal pain, constipation, dysuria, fever, incontinence, numbness, urinary retention, weakness, saddle anesthesia. Severity of symptoms: in the emergency department the symptoms are unchanged, despite home interventions. 13:40 Modifying factors: the patient symptoms are aggravated by bending, standing, walking. 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 - Social history:: Smoking status: Patient reports the use of cigarette tobacco products, smokes one pack cigarettes per day. ROS: 13:45 Constitutional: Negative for body aches, chills, fever, poor PO intake. cp 13:45 Eyes: Negative for injury, pain, redness, and discharge. cp 13:45 Cardiovascular: Negative for chest pain. 13:45 Respiratory: Negative for cough, shortness of breath. 13:45 Abdomen/GI: Negative for abdominal pain, nausea, vomiting, and diarrhea, bowel incontinence. 13:45 Back: Positive for pain at rest, pain with movement, of the left low back. 13:45 : Negative for urinary symptoms, flank pain, difficulty urinating, bladder incontinence. 13:45 Skin: Negative for cellulitis, rash. 13:45 Neuro: Negative for numbness, weakness, saddle anesthesia. 13:45 All other systems are negative. Exam: 13:52 Constitutional: The patient appears in no acute distress, alert, awake, non-toxic, well cp developed, well nourished, uncomfortable. 13:52 Head/Face: Normocephalic, atraumatic. cp 13:52 Cardiovascular: Rate: normal. 13:52 Respiratory: the patient does not display signs of respiratory distress, Respirations: normal, no use of accessory muscles, no retractions, labored breathing, is not present. 13:52 Abdomen/GI: Inspection: abdomen appears normal, Palpation: abdomen is soft and non-tender, in all quadrants. 13:52 Back: pain, that is moderate, of the left low back, ROM is painful, with all movement, vertebral tenderness, is not appreciated, Straight leg raises: of both lower extremities does not illicit pain. 13:52 Skin: cellulitis, is not appreciated, no rash present. 13:52 Neuro: Motor: moves all fours, strength is normal, strength is 5/5 in the right leg and left leg, Sensation: is normal, Deep tendon reflexes are 2+ (normal) in the right patellar, right Achilles, left patellar and left Achilles. Vital Signs: 13:21 BP 110 / 66; Pulse 79; Resp 18 S; Temp 97.8(TE); Pulse Ox 100% ; Weight 86.18 kg (R); ca1 Height 5 ft. 4 in. (162.56 cm) (R); Pain 10/10; 14:40 BP 107 / 68; Pulse 70; Resp 17; Pulse Ox 98% on R/A; tw2 16:16 BP 112 / 74; Pulse 73; Resp 17; Pulse Ox 98% on R/A; tw2 13:21 Body Mass Index 32.61 (86.18 kg, 162.56 cm) ca1 MDM: 13:38 Patient medically screened. cp 14:00 Differential diagnosis: sciatica, Herniated disc UTI, spinal stenosis, cauda equina. cp 15:08 Data reviewed: vital signs, nurses notes, lab test result(s), and as a result, I will cp discharge patient. 15:08 Counseling: I had a detailed discussion with the patient and/or guardian regarding: the cp historical points, exam findings, and any diagnostic results supporting the discharge/admit diagnosis, lab results, the need for outpatient follow up, a family practitioner, to return to the emergency department if symptoms worsen or persist or if there are any questions or concerns that arise at home. Response to treatment: the patient's symptoms have markedly improved after treatment, and as a result, I will discharge patient. 09/10 14:57 Order name: Urine --Ancillary (enter results) or 09/10 14:57 Order name: Urine Dipstick-Ancillary [facility] 09/10 14:46 Order name: Urine Dipstick-Ancillary (obtain specimen); Complete Time: 14:57 cp Administered Medications: 13:56 Drug: morphine 4 mg Route: IM; Site: left deltoid; tw2 14:50 Follow up: Response: No adverse reaction; Pain is unchanged, physician notified tw2 13:57 Drug: TORadol (ketorolac) 30 mg Route: IM; Site: left deltoid; tw2 14:58 Follow up: Response: No adverse reaction; Pain is unchanged, physician notified tw2 14:50 Drug: Demerol (meperidine) 50 mg {Note: RASS 0.} Route: IM; Site: left deltoid; tw2 16:15 Follow up: Response: No adverse reaction; Pain is decreased; RASS: Alert and Calm (0) tw2 Disposition: 18:23 Co-signature as Attending Physician, Everton Stout MD. rn Disposition: 09/10/20 15:09 Discharged to Home. Impression: Sciatica, left side. - Condition is Stable. - Discharge Instructions: Sciatica, Back Exercises. - Prescriptions for Ultracet 37.5- 325 mg Oral Tablet - take 1 tablet by ORAL route every 6 hours - for up to 5 days; do not exceed 8 tablets per day.; 20 tablet. Cyclobenzaprine 10 mg Oral Tablet - take 1 tablet by ORAL route every 8 hours As needed; 30 tablet. Medrol (Myron) 4 mg Oral Tablets, Dose Pack - take 1 tablet by ORAL route as directed - follow package instructions; 1 packet. - Medication Reconciliation Form, Thank You Letter, Antibiotic Education, Prescription Opioid Use form. - Follow up: Private Physician; When: 2 - 3 days; Reason: Recheck today's complaints. - Problem is new. - Symptoms have improved. Signatures: Dispatcher [facility] Everton Stout MD MD rn Page, Corey, PA PA cp Cheli Mary RN RN tw2 Acob, Aline, RN RN ca1 Corrections: (The following items were deleted from the chart) 16:16 15:09 09/10/2020 15:09 Discharged to Home. Impression: Sciatica, left side. Condition tw2 is Stable. Forms are Medication Reconciliation Form, Thank You Letter, Antibiotic Education, Prescription Opioid Use. Follow up: Private Physician; When: 2 - 3 days; Reason: Recheck today's complaints. Problem is new. Symptoms have improved. cp
--- NOTE | 2020-09-10 15:10 | ER ---
Nurse's Notes [facility] [place], [place] Name: Bernice Akers Age: 45 yrs Sex: Female : 1975 Arrival Date: 09/10/2020 Time: 13:09 Bed 13 Private MD: Diagnosis: Sciatica, left side Presentation: 09/10 13:21 Chief complaint: Patient states: low back pain, L and center x 3 days. Denies burning ca1 with urination. Denies urinary S/S. Denies HX of kidney stones. Denies trauma. Coronavirus screen: Client denies travel out of the [place] in the last 14 days. At this time, the client does not indicate any symptoms associated with coronavirus-19. Ebola Screen: Patient negative for fever greater than or equal to 101.5 degrees Fahrenheit, and additional compatible Ebola Virus Disease symptoms Patient denies exposure to infectious person. Patient denies travel to an Ebola-affected area in the 21 days before illness onset. No symptoms or risks identified at this time. Initial Sepsis Screen: Does the patient meet any 2 criteria? No. Patient's initial sepsis screen is negative. Does the patient have a suspected source of infection? No. Patient's initial sepsis screen is negative. Risk Assessment: Do you want to hurt yourself or someone else? Patient reports no desire to harm self or others. Onset of symptoms was September 10, 2020. 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 - Social history:: Smoking status: Patient reports the use of cigarette tobacco products, smokes one pack cigarettes per day. Screenin:39 Abuse screen: Denies threats or abuse. Nutritional screening: No deficits noted. tw2 Tuberculosis screening: No symptoms or risk factors identified. Fall Risk None identified. Assessment: 13:30 General: Appears in no apparent distress. well groomed, Behavior is calm, cooperative, tw2 appropriate for age. Pain: Complains of pain in left gluteal fold, left hamstring, posterior aspect of left knee, left calf and left Achilles and left low back. Neuro: Level of Consciousness is awake, alert, obeys commands, Oriented to person, place, time, situation. Cardiovascular: Patient's skin is warm and dry. Respiratory: Airway is patent Respiratory effort is even, unlabored, Respiratory pattern is regular, symmetrical. GI: No signs and/or symptoms were reported involving the gastrointestinal system. Derm: No signs and/or symptoms reported regarding the dermatologic system. Musculoskeletal: Circulation, motion, and sensation intact. Range of motion: intact in all extremities, Reports pain in left leg and left low back. 13:37 Reassessment: provider at bedside at this time. tw2 14:40 Reassessment: Patient appears in no apparent distress at this time. Patient and/or tw2 family updated on plan of care and expected duration. Pain level reassessed. Patient is alert, oriented x 3, equal unlabored respirations, skin warm/dry/pink. 16:16 Reassessment: Patient appears in no apparent distress at this time. Patient and/or tw2 family updated on plan of care and expected duration. Pain level reassessed. Patient is alert, oriented x 3, equal unlabored respirations, skin warm/dry/pink. Patient states feeling better. Vital Signs: 13:21 BP 110 / 66; Pulse 79; Resp 18 S; Temp 97.8(TE); Pulse Ox 100% ; Weight 86.18 kg (R); ca1 Height 5 ft. 4 in. (162.56 cm) (R); Pain 10/10; 14:40 BP 107 / 68; Pulse 70; Resp 17; Pulse Ox 98% on R/A; tw2 16:16 BP 112 / 74; Pulse 73; Resp 17; Pulse Ox 98% on R/A; tw2 13:21 Body Mass Index 32.61 (86.18 kg, 162.56 cm) ca1 ED Course: 13:09 Patient arrived in ED. am2 13:23 Triage completed. ca1 13:23 Arm band placed on right wrist. ca1 13:24 Bed in low position. Call light in reach. Pulse ox on. NIBP on. tw2 13:25 Dylon Foy PA is PHCP. cp 13:26 Everton Stout MD is Attending Physician. cp 13:37 Mary, Cheli, RN is Primary Nurse. tw2 16:16 No provider procedures requiring assistance completed. Patient did not have IV access tw2 during this emergency room visit. Administered Medications: 13:56 Drug: morphine 4 mg Route: IM; Site: left deltoid; tw2 14:50 Follow up: Response: No adverse reaction; Pain is unchanged, physician notified tw2 13:57 Drug: TORadol (ketorolac) 30 mg Route: IM; Site: left deltoid; tw2 14:58 Follow up: Response: No adverse reaction; Pain is unchanged, physician notified tw2 14:50 Drug: Demerol (meperidine) 50 mg {Note: RASS 0.} Route: IM; Site: left deltoid; tw2 16:15 Follow up: Response: No adverse reaction; Pain is decreased; RASS: Alert and Calm (0) tw2 Outcome: 15:09 Discharge ordered by MD. cp 16:16 Discharged to home ambulatory. tw2 16:16 Condition: stable 16:16 Discharge instructions given to patient, Instructed on discharge instructions, follow up and referral plans. no drinking with medication, no driving heavy equipment, medication usage, Demonstrated understanding of instructions, follow-up care, medications, Prescriptions given X 3. 16:16 Patient left the ED. tw2 Signatures: Dylon Foy PA PA cp Cheli Mary, RN RN tw2 Stacie Almanzar am2 Aline Valencia RN RN ca1 Corrections: (The following items were deleted from the chart) 13:25 13:21 Chief complaint: Patient states: low back pain, R and center x 3 days. Denies ca1 burning with urination. Denies urinary S/S. Denies HX of kidney stones. Denies trauma ca1
[2020-09-10 15:14] LABS: Urine Specific Gravity/Preg 1.015 (1.005-1.030)
[2020-09-10 16:46] VITALS: TEMP 97.8
[2020-09-10 16:51] VITALS: BP 112/74; O2SAT 98
== END 2020-09-10 16:16 | disposition home or self-care (01) ==
LOC: ER 13:06
DX: M54.42 Lumbago with sciatica, left side (principal); F17.210 Nicotine dependence, cigarettes, uncomplicated; K21.9 Gastro-esophageal reflux disease without esophagitis; M32.9 Systemic lupus erythematosus, unspecified
CPT/HCPCS: 81025; 81003; 96372; 99283; J2175

== ENCOUNTER 2021-09-06 12:19 | Emergency (ER) | payer BC ==
--- OUTSIDE RECORDS SUMMARY | 2021-09-06 12:21 | XMS REPORT | Continuity of Care Document ---
:1975 Author Organization [facility] t Address [address] [place] [address] Dr. Frye [address] [place] [id number] Care Team Providers Name Role Phone Unavailable [...] mammographic images were evaluated by either a [employer] M-Vu or a [employer] ImageChecker CAD (computer aided detection system). No [...] one year. Husam Reed M.D. rb/:10/12/2018 14:18:16 Automatic Lathe Setter: Kimberlyn Finn MM, [facility] Mammographyletter sent: BIRADS 1-2 Normal Mammogram BI-RADS: 2 Benign
[2021-09-06 14:46] LABS: Urine Blood Negative (Negative); Urine Glucose Negative (Negative); Urine Protein Negative (Negative)
[2021-09-06 14:53] LABS: Absolute Lymphocytes (CBC) 3.4 K/uL (0.7-4.9); Hematocrit 41.4 % (36.0-45.0); Lymphocytes % 34.3 % (15.3-44.8); MPV 7.6 fL (7.6-11.3); RBC Red Blood Cell Count 4.82 M/uL (3.86-4.86)
--- NOTE | 2021-09-06 15:11 | RAD REPORT ---
EXAM DESCRIPTION: RAD - Chest Single View - 09/06/2021 3:05 pm CLINICAL HISTORY: CHEST PAIN Chest pain. COMPARISON: Chest Pa And Lat (2 Views) dated 11/06/2019; Chest Single View dated 02/21/2019; Chest Sin gle View dated 10/10/2017; CHEST PA AND LAT 2 VIEW dated 08/04/2009 FINDINGS: Portable technique limits examination quality. The lungs are grossly clear. The heart is normal in size. No displaced fractures. IMPRESSION: No acute intrathoracic process suspected.
[2021-09-06 15:13] LABS: ALT/SGPT 20 U/L (12-78); AST/SGOT 12 U/L (15-37); Albumin 4.1 g/dL (3.4-5.0); Alkaline Phosphatase 37 U/L (45-117); BUN Blood Urea Nitrogen 7 mg/dL (7-18); Bicarbonate 28 mmol/L (21-32); Bilirubin Total 0.3 mg/dL (0.2-1.0); Glucose Level 95 mg/dL (74-106); NT PRO-BNP 75 pg/mL (<125); Potassium 3.7 mmol/L (3.5-5.1); Protein, Total 7.5 g/dL (6.4-8.2); Sodium Level 142 mmol/L (136-145)
[2021-09-06 15:14] LABS: Bilirubin Direct < 0.1 mg/dL (0-0.2); Troponin High Sensitivity < 3.0 pg/mL (<58.9)
[2021-09-06] MEDS ORDERED: KETOROLAC 30 MG/ML INJ ONE (15:14)
[2021-09-06] MEDS ORDERED: NA CHLORIDE 0.9% 1,000 ML ONE (15:14)
[2021-09-06 15:21] LABS: Protime INR 0.95
--- NOTE | 2021-09-06 16:36 | RAD REPORT ---
EXAM DESCRIPTION: CT - Angio Aorta For Dissection - 09/06/2021 4:10 pm CLINICAL HISTORY: Chest pain radiating to the back. Chest pain COMPARISON: No comparisons TECHNIQUE: CT angiography of the aorta was performed with MIPs. All CT scans are performed using dose optimization technique as appropriate and may include automated exposure control or mA/KV adjustment according to patient size. FINDINGS: A left aortic arch is present with normal branching pattern of the great vessels.No acute aortic finding is seen such as aneurysm, penetrating ulcer or dissection. The celiac axis, SMA, CORRINE and renal arteries are patent. No evidence of pulmonary embolism. The lungs are clear. The liver demonstrates no focal mass or biliary dilatation.The spleen, pancreas, adrenal glands and k idneys are within normal limits for arterial phase imaging. No bowel obstruction, free fluid or abscess.Normal appendix. Mild sigmoid diverticulosis coli without diverticulitis. Small fat containing umbilical hernia.No pathologic enlarged lymphadenopathy identif ied. No fracture or worrisome bone lesion seen. IMPRESSION: No acute aortic finding is demonstrated.
[2021-09-06] MEDS ORDERED: FENTANYL CITR 100 MCG/2 ML ONE (17:21)
--- NOTE | 2021-09-06 18:02 | ER ---
Nurse's Notes [facility] Name: Bernice Akers Age: 46 yrs Sex: Female : 1975 Arrival Date: 09/06/2021 Time: 12:20 Bed 19 Private MD: Diagnosis: Chest pain, unspecified Presentation: 09/06 13:35 Chief complaint: Patient states: Midsternal chest pain that radiates to L arm, also ph reports mild SOB, no N/V, symptoms began yesterday. Coronavirus screen: Vaccine status: Patient reports being unvaccinated. Ebola Screen: No symptoms or risks identified at this time. Initial Sepsis Screen: Does the patient meet any 2 criteria? No. Patient's initial sepsis screen is negative. Does the patient have a suspected source of infection? No. Patient's initial sepsis screen is negative. Risk Assessment: Do you want to hurt yourself or someone else? Patient reports no desire to harm self or others. Onset of symptoms was September 06, 2021. 13:35 Method Of Arrival: Ambulatory ph 13:35 Acuity: IZABEL 3 ph Historical: - Allergies: 13:37 NKA; ph - Home Meds: 13:37 pantoprazole Oral [Active]; ph - PMHx: 13:37 BELLS PALSY AT 13 YRS OLD; GERD; Lupus; ph - PSHx: 13:37 hysterectomy; knee; ph - Immunization history:: Adult Immunizations unknown. - Social history:: Smoking status: Patient reports the use of cigarette tobacco products, smokes one pack cigarettes per day. Screenin:40 Abuse screen: Denies threats or abuse. Denies injuries from another. Nutritional espitia screening: No deficits noted. Tuberculosis screening: No symptoms or risk factors identified. Fall Risk None identified. Assessment: 15:40 General: Appears uncomfortable, Behavior is calm, cooperative. Pain: Complains of pain espitia in chest Pain does not radiate. Pain began gradually. Cardiovascular: Reports chest pain. Vital Signs: 13:35 BP 123 / 64; Pulse 73; Resp 18; Temp 97.7; Pulse Ox 100% on R/A; Weight 86.18 kg; ph Height 5 ft. 4 in. (162.56 cm); 15:13 BP 98 / 60; Pulse 67; Resp 17; Pulse Ox 98% on R/A; espitia 17:58 BP 104 / 73; Pulse 71; Resp 17; Pulse Ox 100% ; espitia 13:35 Body Mass Index 32.61 (86.18 kg, 162.56 cm) ph ED Course: 12:20 Patient arrived in ED. ds1 12:55 Dylon Foy PA is PHCP. cp 12:55 Ziggy Ghosh DO is Attending Physician. cp 13:37 Triage completed. ph 13:38 Arm band placed on Patient placed in waiting room, Patient notified of wait time. EKG ph completed in triage. Results shown to MD. 14:21 Renetta Murillo, RN is Primary Nurse. ph 15:07 XRAY Chest (1 view) In Process Unspecified. EDMS 15:40 Patient has correct armband on for positive identification. Bed in low position. 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 Pulse ox on. NIBP on. 15:40 No provider procedures requiring assistance completed. Inserted saline lock: 20 gauge espitia in right antecubital area, using aseptic technique. Patient maintains SpO2 saturation greater than 95% on room air. 16:12 CT Aorta for Dissection In Process Unspecified. EDMS 17:34 Troponin High Sensitivity Sent. espitia 18:18 IV discontinued, intact, Pressure dressing applied. espitia Administered Medications: 15:15 Drug: Ketorolac 15 mg Route: IVP; Site: right antecubital; espitia 15:59 Follow up: Response: No adverse reaction espitia 15:15 Drug: NS 0.9% 1000 ml Route: IV; Rate: 1 bolus; Site: right antecubital; espitia 17:20 Drug: fentaNYL (PF) 25 mcg Route: IVP; Site: right antecubital; espitia 17:20 Follow up: Response: No adverse reaction espitia Outcome: 18:01 Discharge ordered by MD. cp 18:18 Discharged to home with family. espitia 18:18 Condition: good 18:18 Discharge instructions given to patient, family, Prescriptions given X 2. 18:18 Patient left the ED. espitia Signatures: Dispatcher [employer] EDIN Sadia Sinha ds1 Renetta Murillo RN RN Dylon Foy PA PA cp Au-Stager, Heather, RN RN espitia
--- NOTE | 2021-09-06 18:02 | EDPHYS ---
Physician Documentation [facility] Name: Bernice Akers Age: 46 yrs Sex: Female : 1975 Arrival Date: 09/06/2021 Time: 12:20 Bed 19 Private MD: ED Physician Ziggy Ghosh HPI: 09/06 14:20 This 46 yrs old Female presents to ER via Ambulatory with complaints of Chest cp Tightness, L Side Numbness. 14:20 The patient or guardian reports chest pain that is located primarily in the substernal cp area. Onset: yesterday. 14:20 The pain radiates to the left arm. Associated signs and symptoms: Pertinent positives: cp numbness of left arm and low back pain. The chest pain is described as sharp. Duration: The patient or guardian reports multiple episodes, that wax and wane. 14:20 Severity of pain: in the emergency department the pain has improved mildly. cp Historical: - Allergies: 13:37 NKA; ph - Home Meds: 13:37 pantoprazole Oral [Active]; ph - PMHx: 13:37 BELLS PALSY AT 13 YRS OLD; GERD; Lupus; ph - PSHx: 13:37 hysterectomy; knee; ph - Immunization history:: Adult Immunizations unknown. - Social history:: Smoking status: Patient reports the use of cigarette tobacco products, smokes one pack cigarettes per day. ROS: 14:25 Constitutional: Negative for body aches, chills, fever, poor PO intake. cp 14:25 Eyes: Negative for injury, pain, redness, and discharge. cp 14:25 Cardiovascular: Positive for chest pain, Negative for edema, palpitations. 14:25 Respiratory: Negative for cough, shortness of breath, wheezing. 14:25 Abdomen/GI: Negative for abdominal pain, nausea, vomiting, and diarrhea. Exam: 14:22 ECG was reviewed by the Attending Physician. cp 14:30 Constitutional: The patient appears in no acute distress, alert, awake, cp non-diaphoretic, non-toxic, well developed, well nourished. 14:30 Head/Face: Normocephalic, atraumatic. cp 14:30 Eyes: Periorbital structures: appear normal, Conjunctiva: normal, no exudate, no injection, Sclera: no appreciated abnormality, Lids and lashes: appear normal, bilaterally. 14:30 ENT: External ear(s): are unremarkable, Nose: is normal, Mouth: Lips: moist, Oral mucosa: pink and intact, moist, Posterior pharynx: Airway: no evidence of obstruction, patent. 14:30 Neck: ROM/movement: is normal, is supple, without pain, no range of motions limitations. 14:30 Chest/axilla: Inspection: normal, Palpation: crepitus, is not appreciated, tenderness, that is mild, of the mid-sternal area. 14:30 Cardiovascular: Rate: normal, Rhythm: regular, Edema: is not appreciated, JVD: is not appreciated. 14:30 Respiratory: the patient does not display signs of respiratory distress, Respirations: normal, no use of accessory muscles, no retractions, labored breathing, is not present, Breath sounds: are clear throughout, no decreased breath sounds, no stridor, no wheezing. 14:30 Abdomen/GI: Inspection: abdomen appears normal, Palpation: abdomen is soft and non-tender, in all quadrants. 14:30 Back: pain, is absent, ROM is normal. 14:30 Neuro: Orientation: to person, place \T\ time. Mentation: is normal, Motor: moves all fours, strength is normal, Sensation: numbness, that is mild, of the left arm. Vital Signs: 13:35 BP 123 / 64; Pulse 73; Resp 18; Temp 97.7; Pulse Ox 100% on R/A; Weight 86.18 kg; ph Height 5 ft. 4 in. (162.56 cm); 15:13 BP 98 / 60; Pulse 67; Resp 17; Pulse Ox 98% on R/A; espitia 17:58 BP 104 / 73; Pulse 71; Resp 17; Pulse Ox 100% ; espitia 13:35 Body Mass Index 32.61 (86.18 kg, 162.56 cm) ph MDM: 14:23 Patient medically screened. cp 15:00 Differential diagnosis: acute myocardial infarction, acute pericarditis, anxiety, chest cp wall pain, costochondritis, pleurisy, pneumonia, pneumothorax, pulmonary embolus, stable angina, thoracic aortic disection, unstable angina. 18:00 Data reviewed: vital signs, nurses notes, lab test result(s), EKG, radiologic studies, cp CT scan, plain films. 18:00 Test interpretation: by ED physician or midlevel provider: ECG, plain radiologic cp studies. Response to treatment: the patient's symptoms have markedly improved after treatment, and as a result, I will discharge patient. 18:01 Special discussion: Based on the patient's history, exam, and Dx evaluation, there is cp no indication for emergent intervention or inpatient Tx. It is understood by the patient/guardian that if the Sx's persist or worsen they need to return immediately for re-evaluation. 09/06 14:19 Order name: Basic Metabolic Panel; Complete Time: 15:35 cp 09/06 15:36 Interpretation: Normal except: CL 110. cp 09/06 14:19 Order name: CBC with Diff; Complete Time: 15:13 cp 09/06 15:13 Interpretation: Reviewed. cp 09/06 14:19 Order name: D-Dimer; Complete Time: 15:35 cp 09/06 14:19 Order name: LFT's; Complete Time: 15:35 cp 09/06 18:00 Interpretation: Normal except: AST 12; ALK 37. cp 09/06 14:19 Order name: Magnesium; Complete Time: 15:35 cp 09/06 14:19 Order name: NT PRO-BNP; Complete Time: 15:35 cp 09/06 14:19 Order name: PT-INR; Complete Time: 15:35 cp 09/06 14:19 Order name: Troponin HS; Complete Time: 15:35 cp 09/06 14:19 Order name: XRAY Chest (1 view); Complete Time: 15:13 cp 09/06 14:46 Order name: Urine Dipstick-Ancillary; Complete Time: 15:13 EDMS 09/06 14:46 Order name: Urine --Ancillary (enter results); Complete Time: 15:35 bd 09/06 15:38 Order name: CT Aorta for Dissection; Complete Time: 16:38 cp 09/06 16:39 Interpretation: Report reviewed. cp 09/06 17:22 Order name: Troponin High Sensitivity; Complete Time: 17:59 cp 09/06 14:19 Order name: EKG; Complete Time: 14:20 cp 09/06 14:19 Order name: Cardiac monitoring; Complete Time: 14:46 cp 09/06 14:19 Order name: EKG - Nurse/Tech; Complete Time: 14:29 cp 09/06 14:19 Order name: IV Saline Lock; Complete Time: 14:46 cp 09/06 14:19 Order name: Labs collected and sent; Complete Time: 14:46 cp 09/06 14:19 Order name: O2 Per Protocol; Complete Time: 14:46 cp 09/06 14:19 Order name: O2 Sat Monitoring; Complete Time: 14:46 cp 09/06 14:19 Order name: Urine Dipstick-Ancillary (obtain specimen); Complete Time: 14:46 cp 09/06 14:19 Order name: Urine Test (obtain specimen); Complete Time: 14:46 cp EC: Rate is 76 beats/min. Rhythm is regular. ND interval is normal. QRS interval is normal. cp QT interval is normal. T waves are Inverted in lead aVR. Interpreted by me. Reviewed by me. Administered Medications: 15:15 Drug: Ketorolac 15 mg Route: IVP; Site: right antecubital; espitia 15:59 Follow up: Response: No adverse reaction espitia 15:15 Drug: NS 0.9% 1000 ml Route: IV; Rate: 1 bolus; Site: right antecubital; espitia 17:20 Drug: fentaNYL (PF) 25 mcg Route: IVP; Site: right antecubital; espitia 17:20 Follow up: Response: No adverse reaction espitia Disposition: 21:35 Co-signature as Attending Physician, Ziggy MEANS was immediately available on-site ms3 in the Emergency Department for consultation in the care of the patient.. Disposition Summary: 09/06/21 18:01 Discharge Ordered Location: Home cp Problem: new cp Symptoms: have improved cp Condition: Stable cp Diagnosis - Chest pain, unspecified cp Followup: cp - With: Private Physician - When: 2 - 3 days - Reason: Recheck today's complaints Discharge Instructions: - Discharge Summary Sheet cp - Nonspecific Chest Pain, Adult cp - Aspirin and Your Heart cp - Musculoskeletal Pain cp Forms: - Medication Reconciliation Form cp - Thank You Letter cp - Antibiotic Education cp - Prescription Opioid Use cp Prescriptions: - Diclofenac Sodium 75 mg Oral Tablet Sustained Release - take 1 tablet by ORAL route 2 times per day; 30 tablet; Refills: 0, Product cp Selection Permitted - Tramadol 50 mg Oral Tablet - take 1 tablet by ORAL route every 8 hours as needed; 12 tablet; Refills: 0, cp Product Selection Permitted Signatures: Dispatcher MedRenetta Pickard, RN RN ph Dylon Foy PA PA cp Sims, Marcus, DO DO ms3 Ila Zamudio RN RN espitia
[2021-09-06 22:49] VITALS: TEMP 97.7
[2021-09-06 22:52] VITALS: BP 104/73; O2SAT 100
--- NOTE | 2021-09-07 09:00 | EKG ---
Test Date: 2021-09-06 Test Time: 13:47:29 Content Production Specialist: PH MEASUREMENT RESULTS: Intervals: Rate: 76 AR: 134 QRSD: 78 QT: 414 QTc: 465 [place]: P: 48 AR: 134 QRS: 22 T: 30 INTERPRETIVE STATEMENTS: Normal sinus rhythm Possible Left atrial enlargement Borderline ECG Compared to ECG 02/21/2019 12:17:55 Sinus arrhythmia no longer present T-wave abnormality no longer present Electronically Signed On 09-07-21 08:58:17 CDT by Navid Vázquez
== END 2021-09-06 18:18 | disposition home or self-care (01) ==
LOC: ER 12:19
DX: R07.9 Chest pain, unspecified (principal); K21.9 Gastro-esophageal reflux disease without esophagitis
CPT/HCPCS: 93005; 85025; 80048; 36415; 83735; 81025; 85610; 85379; 80076; 81003; 84484 ×2; 83880; 71275; 74175; 71045; 96375; 96374; 99285; Q9967; J3010; J7030

== ENCOUNTER 2022-04-30 17:08 | Emergency (ER) | payer BC, SELFPAY ==
--- OUTSIDE RECORDS SUMMARY | 2022-04-30 17:11 | XMS REPORT | Continuity of Care Document ---
:1975 Author Organization [facility] t Address [address] [place] [address] Care Team Providers Name Role Phone ROSAURA JEREZ Primary Care Physician Unavailable JARRET Attending Clinician Unavailable ROSAURA JEREZ Attending Clinician Unavailable Surendra Lino Attending Clinician JARRET Admitting Clinician Unavailable Payers Payer Name Policy Type Policy Number Effective Date Expiration Date [id number] 2018 00:00:00 Problems Condition Condition Condition Status Onset Resolution Last Treating Co mments Source Name Details Category Date Date Treatment Clinician Date Headache Headache Problem Active 2021-03-28 Memoria (finding) (finding) 01:21:29 l Active [place] Problem 03/28/2021 [facility] Pain in Pain in Problem Active 2021-03-28 Me moria face face 01:21:29 l (finding) (finding) Herm yobany Active Problem 03/28/2021 [facility] Tremor Tremor Problem Active 2021-03-28 Jg cabrera (finding) (finding) 01:21:29 l Active [place] Problem 03/28/2021 [facility] Allergies, Adverse Reactions, Alerts Allergy Allergy Status Severity Reaction(s) Onset Inactive Treating Comm ents Source Name Type Date Date Clinician NO KNOWN Drug Active Keyonna russoy of [facility] Social History Social Habit Start Date Stop Date Quantity Comments Source Social History 2021-03-25 2021-03-25 Patrice drake 19:44:17 19:44:17 Medications Ordered Filled Start Stop Current Ordering Indication Dosage Frequency Signature Comments Components Source Medication Medication Date Date Medication? Clinician (SIG) Name Name indomethaci 2020-05 Yes 25 mg = 1 M emoria n 25 mg 1-04 cap, PO, l oral 20:41: TID, # 90 Manan capsule 00 cap, 1 Refill(s), Pharmacy: [id number], 165.1, cm, 03/25/21 14:39:00 CDT, Height, 86.364, kg, 03/25/21 14:39:00 CDT, Weight Allergy 2020-05 Yes 10 mg, PO, Jg cabrera (Loratadine 1-04 Daily, 0 l ) 20:00: Refill(s) [place] 00 Aspirin 2020-05 Yes 0 Memoria 1-04 Refill(s) l 19:58: Manan 00 Tylenol 2020-05 Yes PO, 0 Memoria 1-04 Refill(s) l 19:58: Manan 00 Vital Signs Vital Name Observation Time Observation Value Comments Source Systolic (mm Hg) 2021-03-25 19:39:00 Jg rial [place] Diastolic (mm Hg) 2021-03-25 19:39:00 Mem orial [place] Heart Rate 2021-03-25 19:39:00 [facility] Respitory Rate 2021-03-25 [facility] [place] Height 2021-03-25 19:39:00 165.1 cm [facility] Weight 2021-03-25 19:39:00 [facility] BMI Calculated 2021-03-25 19:39:00 [facility] Procedures Procedure Date / Time Performed Performing Clinician Sourc e Arthroscopy [facility] Hysterectomy [facility] Encounters Start End Encounter Admission Attending Care Care Encounter Source Date/Time Date/Time Type Type Clinicians Facility Department ID 2021-11-30 2021-11-[address] [facility] [id number] [place] 12:36:00 12:36:00 [id number] 2021-09-14 2021-09-14 Outpatient Monty JEREZ [facility] [id number] [facility] 13:00:00 13:00:00 [facility] [id number] 2021-09-14 2021-09-14 Outpatient Monty JEREZ [facility] [id number] [facility] 13:00:00 13:00:00 ROSAURA rodriguez [facility] 2021-03-25 2021-03-26 Outpatient nullFlavo MNA [id number] [facility] 19:15:00 04:59:59 r Neurology 01 ute Hinkle 2021-03-25 2021-03-25 Outpatient ELIZABETH Lino [id number] 14:15:00 23:59:59 Surendra Betsy Wolf 2021-03-25 2021-03-25 Outpatient JOSE GARCIA [id number] [facility] 14:15:00 14:15:00 01 ute Hinkle Results Test Description Test Time Test Comments Results Result Sourc e Comments SCR MAMM 2018-10-12 - SCR MAMM BILATERAL BILATERAL MAINOR 14:18:16 MAINOR CAD CAD DIGITAL DIGITALBILATERAL FIRST EVER DIGITAL SCREENING MAMMOGRAM 3D/2D WITH CAD: 10/11/2018CLINICAL: Asymptomatic. Digital breast tomosynthesis was performed in addition to routine CC and MLO views. Current mammographic images were evaluated by either a [employer] M-Vu or a [employer] ImageChecker CAD (computer aided detection system). No [...] one year. Husam Reed M.D. rb/:10/12/2018 14:18:16 Scientific Manager: Kimberlyn Finn MM, [facility]ography[facility] sent: BIRADS 1-2 Normal Mammogram BI-RADS: 2 Benign
[2022-04-30 19:11] LABS: SARS-COV-2 RT PCR NEGATIVE (NEGATIVE)
--- NOTE | 2022-04-30 19:37 | ER ---
Nurse's Notes [facility] Name: Bernice Akers Age: 46 yrs Sex: Female : 1975 Arrival Date: 04/30/2022 Time: 17:09 Bed IW2 Private MD: Diagnosis: Acute upper respiratory infection, unspecified Presentation: 04/30 18:27 Chief complaint: Patient states: cough, headache, body aches X 2 days. Coronavirus iw screen: Client presents with at least one sign or symptom that may indicate coronavirus-19. Ebola Screen: Patient negative for fever greater than or equal to 101.5 degrees Fahrenheit, and additional compatible Ebola Virus Disease symptoms Patient denies exposure to infectious person. Patient denies travel to an Ebola-affected area in the 21 days before illness onset. No symptoms or risks identified at this time. Initial Sepsis Screen: Does the patient meet any 2 criteria? No. Patient's initial sepsis screen is negative. Does the patient have a suspected source of infection? No. Patient's initial sepsis screen is negative. Risk Assessment: Do you want to hurt yourself or someone else? Patient reports no desire to harm self or others. Onset of symptoms was April 28, 2022. 18:27 Method Of Arrival: Ambulatory iw 18:27 Acuity: IZABEL 4 iw Historical: - Allergies: 18:28 NKA; iw - PMHx: 18:28 BELLS PALSY AT 13 YRS OLD; GERD; Lupus; iw - PSHx: 18:28 hysterectomy; knee; iw - Immunization history:: Adult Immunizations unknown, Client reports having NOT received the Covid vaccine. Last tetanus immunization: unknown. - Social history:: Smoking status: Patient denies any tobacco usage or history of. Screenin:00 Abuse screen: Denies threats or abuse. Denies injuries from another. Nutritional kb3 screening: No deficits noted. Tuberculosis screening: No symptoms or risk factors identified. Fall Risk None identified. Assessment: 20:00 General: Received care of pt at discharge. Test results and POC were reviewed by Dylon Foy PA with pt. Pt reports no questions at this time. . 20:00 Pain: Complains of pain in forehead Pain does not radiate. Pain currently is 6 out of kb3 10 on a pain scale. Quality of pain is described as aching. Neuro: No deficits noted. Reports headache. Vital Signs: 17:58 BP 127 / 74; Pulse 88; Resp 16; Temp 98.4; Pulse Ox 98% ; Weight 83.91 kg; Height 5 ft. rs5 4 in. (162.56 cm); 20:00 BP 121 / 71; Pulse 80; Resp 18; Pulse Ox 99% ; kb3 17:58 Body Mass Index 31.75 (83.91 kg, 162.56 cm) rs5 ED Course: 17:09 Patient arrived in ED. am2 17:10 Dylon Foy PA is PHCP. cp 17:10 Sravan Sheehan MD is Attending Physician. cp 18:28 Triage completed. iw 20:00 Patient has correct armband on for positive identification. kb3 20:00 No provider procedures requiring assistance completed. Patient did not have IV access kb3 during this emergency room visit. Administered Medications: 20:00 Drug: Tussionex Pennkinetic ER (chlorpheniramine-hydrocodone) Suspension 5 ml Route: PO;kb3 20:25 Follow up: Response: No adverse reaction; Medication administered at discharge. kb3 20:00 Drug: Tylenol 650 mg Route: PO; kb3 20:25 Follow up: Response: No adverse reaction; Medication administered at discharge. kb3 20:00 Drug: Ibuprofen 800 mg Route: PO; kb3 20:24 Follow up: Response: No adverse reaction; Medication administered at discharge. kb3 Medication: 20:00 VIS not applicable for this client. kb3 Outcome: 19:36 Discharge ordered by . cp 20:00 Discharged to home ambulatory. kb3 20:00 Condition: stable 20:00 Discharge instructions given to patient, Instructed on discharge instructions, follow up and referral plans. medication usage, Demonstrated understanding of instructions, follow-up care, medications, Prescriptions given X 2. 20:28 Patient left the ED. kb3 Signatures: Emma Louis RN MAURICIO iw Dylon Foy PA PA Stacie Paredes am2 Felicitas Rodriguez RN RN kb3 Lele Bautista rs5
--- NOTE | 2022-04-30 19:37 | EDPHYS ---
Physician Documentation [facility] Name: Bernice Akers Age: 46 yrs Sex: Female : 1975 Arrival Date: 04/30/2022 Time: 17:09 Bed IW2 Private MD: ED Physician Sravan Sheehan HPI: 04/30 18:10 This 46 yrs old Female presents to ER via Ambulatory with complaints of bodyaches, cp Headache, Cough. 18:10 The patient or guardian reports cough, that is intermittent, flu symptoms, body aches, cp headache. Onset: The symptoms/episode began/occurred 2 day(s) ago. Associated signs and symptoms: Pertinent positives: sore throat, Pertinent negatives: chest pain, diarrhea, fever, vomiting. Severity of symptoms: in the emergency department the symptoms are unchanged despite home interventions. Historical: - Allergies: 18:28 NKA; iw - PMHx: 18:28 BELLS PALSY AT 13 YRS OLD; GERD; Lupus; iw - PSHx: 18:28 hysterectomy; knee; iw - Immunization history:: Adult Immunizations unknown, Client reports having NOT received the Covid vaccine. Last tetanus immunization: unknown. - Social history:: Smoking status: Patient denies any tobacco usage or history of. ROS: 18:15 Constitutional: Positive for body aches, Negative for fever, poor PO intake. cp 18:15 Eyes: Negative for injury, pain, redness, and discharge. cp 18:15 ENT: Positive for sore throat, Negative for drainage from ear(s), ear pain, difficulty swallowing, difficulty handling secretions. 18:15 Respiratory: Positive for cough, with no reported sputum, Negative for shortness of breath, wheezing. 18:15 Abdomen/GI: Negative for abdominal pain, vomiting, diarrhea, constipation. 18:15 Skin: Negative for rash. 18:15 Neuro: Positive for headache, Negative for altered mental status, weakness. 18:15 All other systems are negative. Exam: 18:20 Constitutional: The patient appears in no acute distress, alert, awake, non-toxic, well cp developed, well nourished. 18:20 Head/Face: Normocephalic, atraumatic. cp 18:20 Eyes: Periorbital structures: appear normal, Conjunctiva: normal, no exudate, no injection, Lids and lashes: appear normal, bilaterally. 18:20 ENT: External ear(s): are unremarkable, Ear canal(s): are normal, clear, TM's: bulging, is not appreciated, bilaterally, dullness, bilaterally, erythema, is not appreciated, bilaterally, Nose: is normal, Mouth: Lips: moist, Oral mucosa: moist, Posterior pharynx: Airway: no evidence of obstruction, patent, Tonsils: no enlargement, no exudate, Uvula: midline, erythema, that is mild. 18:20 Neck: ROM/movement: is normal, is supple, without pain, no range of motions limitations, no meningismus, Lymph nodes: no appreciated lymphadenopathy. 18:20 Chest/axilla: Inspection: normal. 18:20 Cardiovascular: Rate: normal, Rhythm: regular. 18:20 Respiratory: the patient does not display signs of respiratory distress, Respirations: normal, no use of accessory muscles, no retractions, labored breathing, is not present, Breath sounds: are clear throughout, no decreased breath sounds, no stridor, no wheezing. 18:20 Abdomen/GI: Exam negative for discomfort, distension, guarding, Inspection: abdomen appears normal. Vital Signs: 17:58 BP 127 / 74; Pulse 88; Resp 16; Temp 98.4; Pulse Ox 98% ; Weight 83.91 kg; Height 5 ft. rs5 4 in. (162.56 cm); 20:00 BP 121 / 71; Pulse 80; Resp 18; Pulse Ox 99% ; kb3 17:58 Body Mass Index 31.75 (83.91 kg, 162.56 cm) rs5 MDM: 18:07 Patient medically screened. cp 19:00 Differential diagnosis: bronchitis, flu, URI, influenza, COVID-19, strep throat. cp 19:35 Data reviewed: vital signs, nurses notes, lab test result(s). cp 19:35 Antibiotic administration: Not indicated, the patient does not have an appreciated cp infiltrate. Counseling: I had a detailed discussion with the patient and/or guardian regarding: the historical points, exam findings, and any diagnostic results supporting the discharge/admit diagnosis, lab results, to return to the emergency department if symptoms worsen or persist or if there are any questions or concerns that arise at home. ED course: VSS. Patient appears non-toxic and no signs of respiratory distress. Will discharge to home for continued monitoring. 04/30 18:07 Order name: COVID-19/FLU A+B; Complete Time: 19:35 iw 04/30 18:08 Order name: Strep; Complete Time: 19:35 cp 04/30 19:39 Order name: Throat Culture EDMS Administered Medications: 20:00 Drug: Tussionex Pennkinetic ER (chlorpheniramine-hydrocodone) Suspension 5 ml Route: PO;kb3 20:25 Follow up: Response: No adverse reaction; Medication administered at discharge. kb3 20:00 Drug: Tylenol 650 mg Route: PO; kb3 20:25 Follow up: Response: No adverse reaction; Medication administered at discharge. kb3 20:00 Drug: Ibuprofen 800 mg Route: PO; kb3 20:24 Follow up: Response: No adverse reaction; Medication administered at discharge. kb3 Disposition Summary: 04/30/22 19:36 Discharge Ordered Location: Home cp Problem: new cp Symptoms: have improved cp Condition: Stable cp Diagnosis - Acute upper respiratory infection, unspecified cp Followup: cp - With: Private Physician - When: 2 - 3 days - Reason: Worsening of condition Discharge Instructions: - Discharge Summary Sheet cp - Viral Respiratory Infection cp Forms: - Medication Reconciliation Form cp - Thank You Letter cp - Antibiotic Education cp - Prescription Opioid Use cp Prescriptions: - Bromfed DM 2-30-10 mg/5 mL Oral syrup - take 10 milliliter by ORAL route every 6 hours; 180 milliliter; Refills: 0, cp Product Selection Permitted - Diclofenac Sodium 75 mg Oral tablet,delayed release (DR/EC) - take 1 tablet by ORAL route 2 times per day; 20 tablet; Refills: 0, Product cp Selection Permitted Signatures: Dispatcher [employer] EDMS Emma Louis, RN RN iw Dylon Foy PA PA cp Felicitas Rodriguez, RN RN kb3
[2022-04-30] MEDS ORDERED: ACETAMINOPHEN 325 MG TABLET ONE (19:50)
[2022-04-30] MEDS ORDERED: IBUPROFEN 400 MG TAB ONE (19:51)
[2022-04-30] MEDS ORDERED: HYDROCODONE/CHLORPHEN 5 ML/OSYR ONE (19:51)
[2022-04-30 23:48] VITALS: TEMP 98.4
[2022-04-30 23:49] VITALS: BP 121/71; O2SAT 99
== END 2022-04-30 20:28 | disposition home or self-care (01) ==
LOC: ER 17:08
DX: J06.9 Acute upper respiratory infection, unspecified (principal); Z20.822 Contact with and (suspected) exposure to COVID-19
CPT/HCPCS: 0240U; 87070; 87081; 99283

== ENCOUNTER 2022-08-02 18:20 | Emergency (ER) | payer SELFPAY ==
--- OUTSIDE RECORDS SUMMARY | 2022-08-02 18:24 | XMS REPORT | Continuity of Care Document ---
:1975 Author Organization [facility] t Address [address] [facility] [address] [place] [id number] Care Team Providers Name Role Phone ROSAURA JEREZ Primary Care Physician Unavailable JARRET Attending Clinician Unavailable ROSAURA JEREZ Attending Clinician Unavailable Surendra Lino Attending Clinician JARRET Admitting Clinician Unavailable Payers Payer Name Policy Type Policy Number Effective Date Expiration Date S [facility] [id number] 2018 00:00:00 Problems Condition Condition Condition Status Onset Resolution Last Treating Co mments Source Name Details Category Date Date Treatment Clinician Date Headache Headache Problem Active 2021-03-28 Memoria (finding) (finding) 01:21:29 l Active [place] Problem 03/28/2021 [facility] Pain in Pain in Problem Active 2021-03-28 Me moria face face 01:21:29 l (finding) (finding) Herm yobany Active Problem 03/28/2021 [facility] Tremor Tremor Problem Active 2021-03-28 Jg cabrera (finding) (finding) 01:21:29 l Active Manan Problem 03/28/2021 [facility] Allergies, Adverse Reactions, Alerts Allergy Allergy Status Severity Reaction(s) Onset Inactive Treating Comm ents Source Name Type Date Date Clinician NO KNOWN Drug Active [facility] ALLERGIE Class ity of [facility] No Known No Known Active Memori a Medicati Medicati l on on [place] Allergie Allergie s s Social History Social Habit Start Date Stop [...] Manan capsule 00 cap, 1 Refill(s), Pharmacy: [facility] #[id number], 165.1, cm, 03/25/21 14:39:00 CDT, Height, 86.364, kg, 03/25/21 14:39:00 CDT, Weight indomethaci 2020-05 Yes 25 mg = 1 M emoria n 25 mg 1-04 cap, PO, l oral 20:41: TID, # 90 Manan capsule 00 cap, 1 Refill(s), Pharmacy: [facility] #[id number], 165.1, cm, 03/25/21 14:39:00 CDT, Height, 86.364, kg, 03/25/21 14:39:00 CDT, Weight Allergy 2020-05 Yes 10 mg, PO, Jg cabrera (Loratadine 1-04 Daily, 0 l ) 20:00: Refill(s) [place] 00 Allergy 2020-05 Yes 10 mg, PO, Jg cabrera (Loratadine 1-04 Daily, 0 l ) 20:00: Refill(s) [place] 00 Tylenol 2020-05 Yes PO, 0 Memoria 1-04 Refill(s) l 19:58: [place] 00 Aspirin 2020-05 Yes 0 Memoria 1-04 Refill(s) l 19:58: [place] 00 Tylenol 2020-05 Yes PO, 0 Memoria 1-04 Refill(s) l 19:58: [place] 00 Aspirin 2020-05 Yes 0 Memoria 1-04 Refill(s) l 19:58: [place] 00 Vital Signs Vital Name Observation Time Observation Value Comments Source Diastolic (mm Hg) 2021-03-25 19:39:00 Kevan Hinkle Heart Rate 2021-03-25 19:39:00 [facility] Respitory Rate 2021-03-25 19:39:00 Tiny Valdivia Height 2021-03-25 19:39:00 165.1 cm [facility] Weight 2021-03-25 19:39:00 [facility] BMI Calculated 2021-03-25 19:39:00 Tiny Valdivia Systolic (mm Hg) 2021-03-25 19:39:00 Jg riaute Hinkle Procedures Procedure Date / Time Performed Performing Clinician Dung blanton [facility] En[facility]ters Start End Encounter Admission Attending Care Care Encounter Source Date/Time Date/Time Type Type Clinicians Facility Department ID 2021-11-30 2021-11-30 Outpatient AMBREEN_FAR [facility] [id number] [place] 12:36:00 12:36:00 HANA [id number] 2021-09-14 2021-09-14 Outpatient Monty SOLITARIO [facility] [id number] Univers 13:00:00 13:00:00 ROSAURA [id number] [facility] 2021-09-14 2021-09-14 Outpatient Monty JEREZ [facility] [id number] Univers 13:00:00 13:00:00 ROSAURA [facility] 2021-03-25 2021-03-26 Outpatient nullFlavo MNA [id number] Memoria 19:15:00 04:59:59 r Neurology 01 l Litzy Hinkle 2021-03-25 2021-03-26 Outpatient nullFlavo MNA [id number] Memoria 19:15:00 04:59:59 r Neurology 01 l Litzy Hinkle 2021-03-25 2021-03-25 Outpatient ELIZABETH Lino JAKE [id number] 14:15:00 23:59:59 Surendra Betsy Wolf 2021-03-25 2021-03-25 Outpatient BENY BENY [id number] Memoria 14:15:00 14:15:00 01 ute Hinkle Results Test Description Test Time Test Comments Results Result Dung blanton Comments SCR MAMM 2018-10-12 - SCR MAMM BILATERAL BILATERAL MAINOR 14:18:16 MAINOR CAD CAD DIGITAL DIGITALBILATERAL FIRST EVER DIGITAL SCREENING MAMMOGRAM 3D/2D WITH CAD: 10/11/2018CLINICAL: Asymptomatic. Digital breast tomosynthesis was performed in addition to routine CC and MLO views. Current mammographic images were evaluated by either a Ep[employer] M-Vu or a [employer] ImageChecker CAD (computer aided detection system). No [...] one year. Husam Reed M.D. rb/:10/12/2018 14:18:16 Wheelage Clerk: Kimberlyn Finn MM, [facility] Mammographyletter sent: BIRADS 1-2 Normal Mammogram BI-RADS: 2 Benign
[2022-08-02] MEDS ORDERED: METHYLPREDNISOLONE 125 MG INJ ONE (19:21)
[2022-08-02] MEDS ORDERED: HYDROCODONE/APAP 10/325 TAB ONE (19:21)
--- NOTE | 2022-08-02 20:07 | EDPHYS ---
Physician Documentation [facility] Name: Bernice Akers Age: 47 yrs Sex: Female : 1975 Arrival Date: 08/02/2022 Time: 18:22 Bed 15 Private MD: ED Physician Everton Stout HPI: 08/02 20:01 This 47 yrs old Female presents to ER via Ambulatory with complaints of Breast Problem, kb Arm Pain. 20:01 Patient is a 47-year-old female who reports stinging pain to left lateral breast that kb occurred intermittently throughout the day. Reports now she has tenderness to left lateral breast that radiates under her axilla and causes tingling down left arm. Pain increased with palpation. Denies chest pain, shortness of breath, nausea, vomiting, headache, dizziness.. Onset: The symptoms/episode began/occurred today. Severity of symptoms: At their worst the symptoms were moderate in the emergency department the symptoms are unchanged. The patient has not experienced similar symptoms in the past. The patient has not recently seen a physician. Historical: - Allergies: 18:27 NKA; hb - PMHx: 18:27 BELLS PALSY AT 13 YRS OLD; GERD; Lupus; hb - PSHx: 18:27 hysterectomy; knee; hb - Immunization history:: Adult Immunizations up to date. - Social history:: Smoking status: Patient/guardian denies using tobacco. ROS: 20:00 Constitutional: Negative for fever, chills, and weight loss. kb 20:00 Cardiovascular: Positive for stinging pain to left lateral breast with tenderness to palpation. 20:00 MS/extremity: Positive for of the left arm, tingling. 20:00 All other systems are negative. Exam: 19:55 Constitutional: This is a well developed, well nourished patient who is awake, alert, kb and in no acute distress. Head/Face: Normocephalic, atraumatic. ENT: Moist Mucous membranes Cardiovascular: Regular rate and rhythm with a normal S1 and S2. No gallops, murmurs, or rubs. No pulse deficits. Respiratory: Respirations even and unlabored. No increased work of breathing. Talking in full sentences Abdomen/GI: Soft, non-tender. No distention Skin: Warm, dry with normal turgor. Normal color. MS/ Extremity: Pulses equal, no cyanosis. Neurovascular intact. Full, normal range of motion. Neuro: Awake and alert, GCS 15, oriented to person, place, time, and situation. Moves all extremities. Normal gait. 19:55 ECG was reviewed by the Attending Physician. 20:00 Chest/axilla: Inspection: normal, Palpation: tenderness, that is mild, that is kb moderate, of the left lateral breast, that totally reproduces the patient's complaints, Axilla: are normal, Breasts: tenderness, that is mild of the left breast. Vital Signs: 18:26 BP 121 / 83; Pulse 85; Resp 16; Temp 97.4; Pulse Ox 100% on R/A; Weight 88.45 kg; hb Height 5 ft. 6 in. ; Pain 8/10; 18:26 Body Mass Index 31.47 (88.45 kg, 167.64 cm) hb 18:26 Pain Scale: Adult hb MDM: 18:55 Patient medically screened. kb 20:01 Data reviewed: vital signs, nurses notes. kb 20:03 Differential Diagnosis Shingles, cellulitis, abscess, strain. Independent kb interpretation of the following test(s) in the Emergency Department EKG: See my EKG interpretation above. Test considered but Not performed: Labs: Labs considered but pain is superficial and reproducible. X-ray: Chest x-ray considered but pain is very superficial and completely reproducible on palpation.. CT: CT head considered but patient has no neurodeficits on exam. Counseling: I had a detailed discussion with the patient and/or guardian regarding: the historical points, exam findings, and any diagnostic results supporting the discharge/admit diagnosis, the need for outpatient follow up, a family practitioner, to return to the emergency department if symptoms worsen or persist or if there are any questions or concerns that arise at home. ED course: Patient is a 47-year-old female who presents for standing/burning pain to left lateral breast and tingling down left arm. States symptoms started earlier today. On exam patient has tenderness to left lateral breast and axilla. Respirations even unlabored, lungs clear bilaterally. Nontoxic in appearance. 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 Normal neuro exam. Ambulates with steady gait. Educated on possibility of early shingles and to watch for rash. Educated on symptomatic treatment, return precautions and need for follow-up with PCP. Patient in agreement with plan of care. Verbalizes understanding of all instructions.. 08/02 19:08 Order name: EKG; Complete Time: 19:09 kb 08/02 19:08 Order name: EKG - Nurse/Tech; Complete Time: 19:42 kb EC:55 Rate is 68 beats/min. Rhythm is regular. QRS [place] is Normal. [place] interval is normal at kb 142 msec. QRS interval is normal at 86 msec. QT interval is normal at 442 msec. Administered Medications: :42 Drug: [place] PO 10 mg-325 mg 1 tabs Route: PO; jb4 20:33 Follow up: Response: No adverse reaction; Marked relief of symptoms jb4 19:42 Drug: MethylPREDNISolone Sodium Succinate IM 125 mg Route: IM; Site: right gluteus; jb4 20:33 Follow up: Response: No adverse reaction; Marked relief of symptoms jb4 Disposition Summary: 08/02/22 20:07 Discharge Ordered Location: Home kb Condition: Stable kb Diagnosis - Left lateral chest wall pain kb Followup: kb - With: Emergency Department - When: As needed - Reason: Worsening of condition Followup: kb - With: Private Physician - When: 2 - 3 days - Reason: Recheck today's complaints, Continuance of care, Re-evaluation by your physician Discharge Instructions: - Discharge Summary Sheet kb - Shingles, [id number] kb - Chest Wall Pain, [id number] kb Forms: - Medication Reconciliation Form kb - Thank You Letter kb - Antibiotic Education kb - Prescription Opioid Use kb Prescriptions: - Diclofenac Sodium 75 mg Oral tablet,delayed release (DR/EC) - take 1 tablet by ORAL route 2 times per day As needed; 30 tablet; Refills: 0, kb Product Selection Permitted - orphenadrine citrate 100 mg Oral Tablet Sustained Release - take 1 tablet by ORAL route 2 times per day As needed; 20 tablet; Refills: 0, kb Product Selection Permitted Addendum: 08/09/2022 07:53 Co-signature as Attending Physician, Everton Stout MD I reviewed the patient's care r n provided by the Advanced Practice Provider and agree with the diagnosis and treatment plan. Signatures: Barbie Mccullough, DRAWER IN PLAIN LOOM-C DRAWER IN PLAIN LOOM-Everton Bates MD MD rn Baxter, Heather, RN RN hb Bryson, James, RN RN jb4 Corrections: (The following items were deleted from the chart) 08/02 20:03 20:01 Patient is a 47-year-old female who reports stinging pain to left lateral breast kb that occurred intermittently throughout the day. Reports now she has tenderness to left lateral breast that radiates under her axilla and causes tingling down left arm.. kb
--- NOTE | 2022-08-02 20:07 | ER ---
Nurse's Notes [facility] Name: Bernice Akers Age: 47 yrs Sex: Female : 1975 Arrival Date: 08/02/2022 Time: 18:22 Bed 15 Private MD: Diagnosis: Left lateral chest wall pain Presentation: 08/02 18:26 Chief complaint: Burning pain in left breast that radiates to left arm for approx 4 hb hours. Coronavirus screen: At this time, the client does not indicate any symptoms associated with coronavirus-19. Ebola Screen: No symptoms or risks identified at this time. Initial Sepsis Screen: Does the patient meet any 2 criteria? No. Patient's initial sepsis screen is negative. Does the patient have a suspected source of infection? No. Patient's initial sepsis screen is negative. Risk Assessment: Do you want to hurt yourself or someone else? Patient reports no desire to harm self or others. Onset of symptoms was August 02, 2022. 18:26 Method Of Arrival: Ambulatory hb 18:26 Acuity: IZABEL 3 hb Triage Assessment: 18:27 General: Appears in no apparent distress. uncomfortable, Behavior is calm, cooperative. hb Pain: Pain currently is 8 out of 10 on a pain scale. Neuro: Level of Consciousness is awake, alert, obeys commands, Oriented to person, place, time, situation. Cardiovascular: Patient's skin is warm and dry. Respiratory: Respiratory effort is even, unlabored, Respiratory pattern is regular, symmetrical. Historical: - Allergies: 18:27 NKA; hb - PMHx: 18:27 BELLS PALSY AT 13 YRS OLD; GERD; Lupus; hb - PSHx: 18:27 hysterectomy; knee; hb - Immunization history:: Adult Immunizations up to date. - Social history:: Smoking status: Patient/guardian denies using tobacco. Screenin:15 [facility] ED Fall Risk Assessment (Adult) History of falling in the last 3 months, jb4 including since admission No falls in past 3 months (0 pts). Abuse screen: Denies threats or abuse. Nutritional screening: No deficits noted. Tuberculosis screening: No symptoms or risk factors identified. Assessment: 19:15 General: Appears in no apparent distress. comfortable, Behavior is calm, cooperative, jb4 appropriate for age. Pain: Complains of pain in left breast Pain radiates to left arm Pain currently is 8 out of 10 on a pain scale. Quality of pain is described as burning, throbbing. Neuro: Level of Consciousness is awake, alert, obeys commands, Oriented to person, place, time, situation. Cardiovascular: Patient's skin is warm and dry. Respiratory: Airway is patent Respiratory effort is even, unlabored, Respiratory pattern is regular, symmetrical. GI: No signs and/or symptoms were reported involving the gastrointestinal system. : No signs and/or symptoms were reported regarding the genitourinary system. EENT: No signs and/or symptoms were reported regarding the EENT system. Derm: Skin is intact, Skin is pink, warm \T\ dry. Musculoskeletal: Circulation, motion, and sensation intact. Range of motion: intact in all extremities. 20:28 Reassessment: Patient appears in no apparent distress at this time. Patient and/or jb4 family updated on plan of care and expected duration. Pain level reassessed. Patient is alert, oriented x 3, equal unlabored respirations, skin warm/dry/pink. Vital Signs: 18:26 BP 121 / 83; Pulse 85; Resp 16; Temp 97.4; Pulse Ox 100% on R/A; Weight 88.45 kg; hb Height 5 ft. 6 in. ; Pain 8/10; 18:26 Body Mass Index 31.47 (88.45 kg, 167.64 cm) hb 18:26 Pain Scale: Adult hb ED Course: 18:22 Patient arrived in ED. rg4 18:27 Triage completed. hb 18:27 Arm band placed on. hb 18:55 Barbie Mccullough FNP-C [facility] kb 18:55 Everton Stout MD is Attending Physician. kb 19:15 Patient has correct armband on for positive identification. Bed in low position. Call jb4 light in reach. Side rails up X 1. 19:15 No provider procedures requiring assistance completed. Patient did not have IV access jb4 during this emergency room visit. 19:20 Brayden Vail, RN is Primary Nurse. jb4 Administered Medications: 19:42 Drug: [place] PO 10 mg-325 mg 1 tabs Route: PO; jb4 20:33 Follow up: Response: No adverse reaction; Marked relief of symptoms jb4 19:42 Drug: MethylPREDNISolone Sodium Succinate IM 125 mg Route: IM; Site: right gluteus; jb4 20:33 Follow up: Response: No adverse reaction; Marked relief of symptoms jb4 Medication: 20:28 VIS not applicable for this client. jb4 Outcome: 20:07 Discharge ordered by . kanwal 20:33 Discharged to home ambulatory. jb4 20:33 Condition: stable 20:33 Discharge instructions given to patient, Instructed on discharge instructions, follow up and referral plans. medication usage, Demonstrated understanding of instructions, follow-up care, medications, Prescriptions given X 2. 20:33 Patient left the ED. jb4 Signatures: Barbie Mccullough, WIRE BENDER HAND-C WIRE BENDER HAND-Ckb Ila Sanon, RN RN Myesha Dahl 4 Brayden Vail, RN RN jb4
--- NOTE | 2022-08-03 13:21 | EKG ---
Test Date: 2022-08-02 Test Time: 19:33:49 Operations Support Specialist: JENNIFER MEASUREMENT RESULTS: Intervals: Rate: 68 IL: 142 QRSD: 86 QT: 416 QTc: 442 [place]: P: 62 IL: 142 QRS: 54 T: 56 INTERPRETIVE STATEMENTS: Normal sinus rhythm Normal ECG Compared to ECG 09/06/2021 13:47:29 No significant changes Electronically Signed On 08-03-22 13:19:33 CDT by Jesus Puckett
== END 2022-08-02 20:33 | disposition home or self-care (01) ==
LOC: ER 18:20
DX: R07.89 Other chest pain (principal)
CPT/HCPCS: 93005; 96372; 99283; J2930

== ENCOUNTER → 2023-07-07 | Emergency (ER) | payer SELFPAY ==
[~2023-07-07] MED LIST: KETOROLAC 30 MG/ML INJ ONE
[2023-07-07 23:49] LABS: Absolute Lymphocytes (CBC) 4.9 K/uL (0.7-4.9); Hematocrit 37.5 % (36.0-45.0); Lymphocytes % 47.7 % (15.3-44.8); MCV 82.5 fL (80-100); MPV 7.1 fL (7.6-11.3); Platelets 307 thou/uL (152-406); RBC Red Blood Cell Count 4.54 M/uL (3.86-4.86)
[2023-07-08 00:10] LABS: Potassium 3.3 mEq/L (3.5-5.1); Troponin High Sensitivity 3.1 pg/mL (<58.9)
--- NOTE | 2023-07-08 00:31 | EDPHYS ---
Physician Documentation [facility] Name: Bernice Akers Age: 48 yrs Sex: Female : 1975 Arrival Date: 07/07/2023 Time: 23:28 Bed 13 Private MD: ED Physician Prabhakar Phillips HPI: 07/07 23:43 This 48 yrs old Female presents to ER via Ambulatory with complaints of Chest ec2 Pain. 23:43 Patient arrives today for evaluation of chest pain. Patient states that she been having ec2 chest pain since early this morning approximately 15 hours. Patient reports no difficulty breathing, states that the pain radiates to the shoulder as well. Patient reports no nausea or vomiting, no cough or cold symptoms. Patient reports no exertional component.. Historical: - Allergies: 23:41 NKA; pf1 - PMHx: 23:41 BELLS PALSY AT 13 YRS OLD; GERD; Lupus; pf1 - PSHx: 23:41 hysterectomy; knee; pf1 - Immunization history:: Adult Immunizations not up to date, Client reports having NOT received the Covid vaccine. Last tetanus immunization: < 10 years ago Flu vaccine is not up to date. - Social history:: Smoking status: Reported history of juuling and/or vaping. Patient/guardian denies using alcohol, street drugs. ROS: 23:43 Constitutional: as per hpi ec2 Exam: 23:43 Constitutional: GEN: NAD Head: atraumatic Eyes: EOMI Ears: External ears are ec2 normal. CV: regular rate LUNGS: no respiratory distress ABD: non-distended SKIN: no evidence of rashes MSK: no evidence of trauma NEURO: moves all extremities equally Vital Signs: 23:38 BP 137 / 82; Pulse 76; Resp 18; Temp 98.2; Pulse Ox 99% on R/A; Pain 8/10; pf1 07/08 00:27 BP 116 / 68; Pulse 71; Resp 16; Pulse Ox 100% ; tm6 07/07 23:38 Pain Scale: Adult pf1 MDM: 07/07 23:34 Patient medically screened. ec2 23:43 Data reviewed: vital signs. ED course: Patient arrives today for evaluation of chest ec2 pain. Examination remarkable for well-appearing nontoxic dividual is otherwise in no acute distress. EKG obtained, independently reviewed and interpreted by me, shows normal sinus rhythm, rate of 73, no acute ST segment elevations, nonconcerning was. Will obtain lab work and chest x-ray as well. Evaluating for ACS, arrhythmia, anemia.. 07/08 00:11 ED course: Metabolic profile with slight hypokalemia, reassuring CBC, troponin within ec2 normal ranges. . 00:29 ED course: Chest x-ray independently reviewed and interpreted by me, shows no acute ec2 intrathoracic process. On reassessment patient remains well-appearing in no acute distress. Will discharge home, low suspicion for ACS or PE or dissection. Return precautions given.. 07/07 23:37 Order name: Basic Metabolic Panel; Complete Time: 00:11 ec2 07/07 23:37 Order name: CBC with Diff; Complete Time: 00:11 ec2 07/07 23:37 Order name: Troponin HS; Complete Time: 00:11 ec2 07/07 23:37 Order name: XRAY Chest (1 view) ec2 07/07 23:37 Order name: EKG; Complete Time: 23:38 ec2 07/07 23:37 Order name: Cardiac monitoring; Complete Time: 23:39 ec2 07/07 23:37 Order name: EKG - Nurse/Tech; Complete Time: 23:39 ec2 07/07 23:37 Order name: IV Saline Lock; Complete Time: 23:39 ec2 07/07 23:37 Order name: Labs collected and sent; Complete Time: 23:45 ec2 07/07 23:37 Order name: O2 Per Protocol; Complete Time: 23:39 ec2 07/07 23:37 Order name: O2 Sat Monitoring; Complete Time: 23:39 ec2 Administered Medications: 07/07 23:56 Drug: Ketorolac IVP 15 mg IVP once Route: IVP; Site: left antecubital; tm6 07/08 00:49 Follow up: Response: No adverse reaction; Marked relief of symptoms; Pain is decreased pf1 Disposition Summary: 07/08/23 00:30 Discharge Ordered Notes: Location: Home ec2 Condition: Stable ec2 Diagnosis - Chest pain, unspecified ec2 Followup: ec2 - With: Private Physician - When: - Reason: Recheck today's complaints Discharge Instructions: - Discharge Summary Sheet ec2 - Nonspecific Chest Pain, Adult, [id number] ec2 Forms: - Medication Reconciliation Form ec2 - Thank You Letter ec2 - Antibiotic Education ec2 - Prescription Opioid Use ec2 - Patient Portal Instructions ec2 - Leadership Thank You Letter ec2 Signatures: Dispatcher [employer] Kerri Rouse RN RN pf1 Prabhakar Phillips MD MD ec2 Ezequiel Lawson RN RN tm6
--- NOTE | 2023-07-08 00:31 | ER ---
Nurse's Notes [facility] Name: Bernice Akers Age: 48 yrs Sex: Female : 1975 Arrival Date: 07/07/2023 Time: 23:28 Bed 13 Private MD: Diagnosis: Chest pain, unspecified Presentation: 07/07 23:38 Chief complaint: Patient states: left side intermittent chest pain of 8 that radiates pf1 to left arm, between shoulder blades down to lower back with mild SOB,onset 0800 this AM while drinking coffee. Coronavirus screen: Vaccine status: Patient reports being unvaccinated. Client denies travel out of the [place] in the last 14 days. At this time, the client does not indicate any symptoms associated with coronavirus-19. Ebola Screen: Patient negative for fever greater than or equal to 101.5 degrees Fahrenheit, and additional compatible Ebola Virus Disease symptoms. Initial Sepsis Screen: Does the patient meet any 2 criteria? No. Patient's initial sepsis screen is negative. Does the patient have a suspected source of infection? No. Patient's initial sepsis screen is negative. Risk Assessment: Do you want to hurt yourself or someone else? Patient reports no desire to harm self or others. 23:38 Method Of Arrival: Ambulatory pf1 23:38 Acuity: IZABEL 2 pf1 Historical: - Allergies: 23:41 NKA; pf1 - PMHx: 23:41 BELLS PALSY AT 13 YRS OLD; GERD; Lupus; pf1 - PSHx: 23:41 hysterectomy; knee; pf1 - Immunization history:: Adult Immunizations not up to date, Client reports having NOT received the Covid vaccine. Last tetanus immunization: < 10 years ago Flu vaccine is not up to date. - Social history:: Smoking status: Reported history of juuling and/or vaping. Patient/guardian denies using alcohol, street drugs. Screenin/17 00:03 [facility] ED Fall Risk Assessment (Adult) History of falling in the last 3 months, tm6 including since admission No falls in past 3 months (0 pts). Abuse screen: Denies threats or abuse. Denies injuries from another. Nutritional screening: No deficits noted. Tuberculosis screening: No symptoms or risk factors identified. Assessment: 00:03 General: Appears uncomfortable, Behavior is calm, cooperative. Pain: Complains of pain tm6 in chest Pain radiates to left arm Pain currently is 7 out of 10 on a pain scale. Quality of pain is described as heavy, Pain began this morning. Neuro: Level of Consciousness is awake, alert, obeys commands, Oriented to person, place, time, situation. Cardiovascular: Capillary refill < 3 seconds Patient's skin is warm and dry. Rhythm is sinus rhythm. Respiratory: Airway is patent Respiratory effort is even, unlabored, Respiratory pattern is regular, symmetrical. GI: Abdomen is flat, non-distended. : No signs and/or symptoms were reported regarding the genitourinary system. EENT: No signs and/or symptoms were reported regarding the EENT system. Derm: No signs and/or symptoms reported regarding the dermatologic system. Musculoskeletal: No signs and/or symptoms reported regarding the musculoskeletal system. 00:28 Reassessment: Patient appears in no apparent distress at this time. No changes from tm6 previously documented assessment. Vital Signs: 07/07 23:38 BP 137 / 82; Pulse 76; Resp 18; Temp 98.2; Pulse Ox 99% on R/A; Pain 8/10; pf1 07/08 00:27 BP 116 / 68; Pulse 71; Resp 16; Pulse Ox 100% ; tm6 07/07 23:38 Pain Scale: Adult pf1 ED Course: 07/07 23:30 Patient arrived in ED. gm2 23:34 Prabhakar Phillips MD is Attending Physician. ec2 23:39 Ezequiel Lawson RN is Primary Nurse. tm6 23:41 Triage completed. pf1 23:55 XRAY Chest (1 view) In Process Unspecified. EDMS 07/08 00:03 Patient has correct armband on for positive identification. Placed in gown. Bed in low tm6 position. Call light in reach. Side rails up X2. Provided Education on: plan of care. Client placed on continuous cardiac and pulse oximetry monitoring. NIBP monitoring applied. school bus monitor on. Door closed. Noise minimized. Warm blanket given. 00:03 Arm band placed on right wrist. pf1 00:03 No provider procedures requiring assistance completed. Inserted saline lock: 20 gauge tm6 in left antecubital area, using aseptic technique. Patient maintains SpO2 saturation greater than 95% on room air. 00:48 IV discontinued, intact, bleeding controlled, No redness/swelling at site. Pressure pf1 dressing applied. Administered Medications: 07/07 23:56 Drug: Ketorolac IVP 15 mg IVP once Route: IVP; Site: left antecubital; tm6 07/08 00:49 Follow up: Response: No adverse reaction; Marked relief of symptoms; Pain is decreased pf1 Medication: 00:03 VIS not applicable for this client. tm6 Outcome: 00:30 Discharge ordered by . ec2 00:49 Discharged to home ambulatory, with family, pf1 00:49 Condition: improved 00:49 Discharge instructions given to patient, family, Instructed on discharge instructions, follow up and referral plans. Demonstrated understanding of instructions, follow-up care, 00:50 Patient left the ED. pf1 Signatures: Dispatcher [employer] Kerri Rouse, RN RN pf1 Prabhakar Phillips MD MD ec2 Theodora Campo 2 Ezequiel Lawson RN RN tm6
[2023-07-08 01:20] VITALS: BP 116/68; TEMP 98.2; O2SAT 100
--- NOTE | 2023-07-08 21:55 | RAD REPORT ---
EXAM DESCRIPTION: RAD - Chest Single View - 07/07/2023 11:53 pm CLINICAL HISTORY: 8 years Female, CHEST PAIN COMPARISON: Chest radiograph dated 09/06/2021 FINDINGS: No focal lung consolidation. No pleural effusion. No pneumothorax. Cardiomediastinal silhouette is within normal limits. No acute osseous abnormality. IMPRESSION: No acute cardiopulmonary disease. Electronically signed by: Renato Box DO 07/08/2023 12:26 AM POWER SYSTEM DISPATCHER Due to temporary technical issues with the PACS/Fluency reporting system, reports are being signed by the in house radiologists without review as a courtesy to insure prompt reporting. The interpreting radiologist is fully responsible for the content of the report.
--- NOTE | 2023-07-10 11:01 | EKG ---
Test Date: 2023-07-07 Test Time: 23:34:45 [employer] Specialist: KARRI MEASUREMENT RESULTS: Intervals: Rate: 73 AK: 128 QRSD: 84 QT: 406 QTc: 447 [place]: P: 63 AK: 128 QRS: 52 T: 44 INTERPRETIVE STATEMENTS: Normal sinus rhythm Normal ECG Compared to ECG 08/02/2022 19:33:49 No significant changes Electronically Signed On 07-10-23 10:57:45 DIRECTOR OF MARKET ANALYSIS by Luis Milian
== END ==
LOC: ER 23:28
DX: R07.9 Chest pain, unspecified (principal)
CPT/HCPCS: 36415; 71045; 80048; 84484; 85025; 93005; 96374; 99285

== ENCOUNTER 2024-09-03 10:50 | Emergency (ER) | payer SELFPAY ==
--- OUTSIDE RECORDS SUMMARY | 2024-09-03 10:54 | XMS REPORT | Continuity of Care Document ---
Author Name Unknown Address [address] [facility] [address] [place], [place] [id number] [place] [address] [place] Address [address] [facility]. [address] [place] [address] Care Team Providers Care Bull Gang Supervisor Name Role Phone ROSAURA JEREZ Primary Care Physician Unavailab le TIMOTHY_MELISSA Attending Clinician Unavailable ROSAURA JEREZ Attending Clinician Unavailable JARRET Admitting Clinician Unavailable Payers Payer Name Policy Type Policy Number Effective Date Expirati on Date Source [facility] [id number] 2018 00:00:00 Problems Condition Name Condition Details Condition Category Status Onset Date Resolution Date Last Treatment Date Treating Clinician Comments Source Headache (finding) Headache (finding) Active Problem 03/28/2021 [facility] Problem Active 2021-03-28 01:21:29 [facility] Hinkle Pain in face (finding) Pain in face (finding) Active Problem 03/28/2021 [facility] Problem Active 2021-03-28 01:21:29 Cortez Hinkle Tremor (finding) Tremor (finding) Active Problem 03/28/2021 [facility] Problem Active 2021-03-28 01:21:29 Cortez Hinkle Allergies, Adverse Reactions, Alerts Allergy Name Allergy Type Status Severity Reaction(s) Onset Date Inactive Date Treating Clinician Comments Source NO KNOWN ALLERGIE S Drug Class Active [facility] No Known Medicati on Allergie s No Known Medicati on Allergie s Active Cortez Hinkle Social History Social Habit Start Date Stop Date Quantity Comments Source Social History 2021-03-25 19:44:17 2021-03-25 19:44:17 Patrice Hinkle Medications Ordered Medication Name Filled Medication Name Start Date Stop Date Current Medication? Ordering Clinician Indication Dosage Frequency Signature (SIG) Comments Components Source indomethaci n 25 mg oral capsule 2020-05 20:41: 00 Yes 25 mg = 1 cap, PO, TID, # 90 cap, 1 Refill(s), [id number], 165.1, cm, 03/25/21 14:39:00 CDT, Height, 86.364, kg, 03/25/21 14:39:00 CDT, Weight Kevanoria ute Hinkle Allergy (Loratadine ) 2020-05 20:00: 00 Yes 10 mg, PO, Daily, 0 Refill(s) [facility] Tylenol 2020-05 19:58: 00 Yes PO, 0 Refill(s) [facility] Aspirin 2020-05 19:58: 00 Yes 0 Refill(s) [facility] Vital Signs Vital Name Observation Time Observation Value Comments S our Systolic (mm Hg) 2021-03-25 19:[facility] ([facility]) 2021-03-25 19:39:00 [facility] Heart Rate 2021-03-25 19:39:00 [facility] Gabriels Respitory Rate 2021-03-25 19:39:00 [facility] Height 2021-03-25 19:39:00 165.1 cm [facility] Weight 2021-03-25 19:39:00 [facility] BMI Calculated 2021-03-25 19:39:[address] [facility] Procedure Date / Time Performed Performing Clinicia n Source [facility] Encounters Start Date/Time End Date/Time Encounter Type Admission Type Attending Clinicians Care Facility Care Department Encounter ID Source 2021-11-30 12:36:00 2021-11-30 12:36:00 Outpatient TIMOTHY_JOSE ARIAS PASHARLENE [id number] Dominique vuong [facility] 2021-09-14 13:00:00 2021-09-14 13:00:00 Outpatient ROSAURA [facility] [id number] [facility] 2021-09-14 13:00:00 2021-09-14 13:00:00 Outpatient ROSAURA [facility] [id number] [facility] 2021-03-25 19:15:00 2021-03-26 04:59:59 Outpatient nullFlavo r [facility] [id number] Cort[facility]inkle Results Test Description Test Time Test Comments Results Resul t Comments Source SCR MAMM BILATERAL MAINOR CAD DIGITAL 2018-10-12 14:18:16 - SCR MAMM BILATERAL MAINOR CAD DIGITALBILATERAL FIRST EVER DIGITAL SCREENING MAMMOGRAM 3D/2D WITH CAD: 10/11/2018CLINICAL: Asymptomatic. Digital breast tomosynthesis was performed in addition to routine CC and MLO views. Current mammographic images were evaluated by either a [employer] M-Vu or a [facility] ImageChecker CAD (computer aided detection system). No [...] Husam Reed M.D. rb/:10/12/2018 14:18:16 Front Office Coordinator: Kimberlyn Finn MM, [facility] Mammographyletter sent: BIRADS 1-2 Normal Mammogram BI-RADS: 2 Benign
--- NOTE | 2024-09-03 12:21 | RAD REPORT ---
Procedure: Chest Single View HISTORY: Chest pain COMPARISON: 2023 FINDINGS: The lungs appear clear of acute infiltrate. No significant pleural effusion noted. The heart is normal size. IMPRESSION: No acute abnormality is displayed.
[2024-09-03 12:24] LABS: Absolute Lymphocytes (CBC) 2.5 K/uL (0.7-4.9); Absolute Monocytes 0.4 K/uL (0.1-1.3); Absolute Neutrophil 1.8 K/uL (1.8-8.0); Eosinophils % 0.9 % (0-4.4); Hematocrit 41.5 % (36.0-45.0); Hemoglobin 14.4 g/dL (12.0-15.0); Lymphocytes % 51.9 % (15.3-44.8); MCH 28.6 pg (27.0-35.0); MCHC 34.6 g/dL (32.0-36.0); MCV 82.6 fL (80-100); MPV 7.2 fL (7.6-11.3); Monocytes % 9.1 % (3.3-12.3); Neutrophils % 37.1 % (41.7-73.7); Nucleated Red Blood Cells % 0.1 % (0-0); Platelets 325 thou/uL (152-406); RBC Red Blood Cell Count 5.02 M/uL (3.86-4.86); Red Cell Distribution Width 14.1 % (12.1-15.2)
[2024-09-03 12:28] LABS: PT Prothrombin Time 11.2 SECONDS (10-13.0); Protime INR 0.98
[2024-09-03 12:42] LABS: ALT/SGPT 46 U/L (13-56); AST/SGOT 24 U/L (15-37); Albumin 4.2 g/dL (3.4-5.0); Albumin/Globulin Ratio 1.1 (1.1-1.8); Alkaline Phosphatase 36 U/L (45-117); Anion Gap 7.9 mEq/L (5.0-15.0); BUN Blood Urea Nitrogen 8 mg/dL (7-18); Bicarbonate 28 mEq/L (21-32); Bilirubin Total 0.4 mg/dL (0.2-1.0); Globulin 3.8 g/dL (2.3-3.5); Glomerular Filtration Rate 81 ml/min (=/>90); Glucose Level 98 mg/dL (74-106); Magnesium 2.1 mg/dL (1.6-2.4); NT PRO-BNP 83 pg/mL (<125); Potassium 3.9 mEq/L (3.5-5.1); Sodium Level 139 mEq/L (136-145)
[2024-09-03 12:43] LABS: Bilirubin Direct < 0.2 mg/dL (0-0.2); Bilirubin Indirect, Calculated 0.2 mg/dL (0.2-0.8); Troponin High Sensitivity < 3.0 pg/mL (<58.9)
--- NOTE | 2024-09-03 13:06 | EDPHYS ---
Physician Documentation [facility] Name: Bernice Akers Age: 49 yrs Sex: Female : 1975 Arrival Date: 09/03/2024 Time: 10:50 Bed 25 Private MD: ED Physician Delio Reeves HPI: 09/03 12:58 This 49 yrs old Female presents to ER via Ambulatory with complaints of Numbness Of sp3 Arm, Chest Pain. 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 Patient stated that she was cleaning and may have "overdid it" on the left arm. She denies any ongoing chest pain, chest pressure, shortness of breath, back pain, left shoulder pain, neck pain, jaw pain or any other anginal equivalents. Review of system negative for fever, headache, neck pain, shortness of breath, abdominal pain, nausea, vomiting, diarrhea, fall, trauma or any other signs or symptoms on ROS at this time.. APPEALS EXAMINER: 13:33 Not kj2 Historical: - Allergies: 11:32 NKA; iw - PMHx: 11:32 BELLS PALSY AT 13 YRS OLD; GERD; Lupus; iw - PSHx: 11:32 knee; hysterectomy; iw - Immunization history:: Adult Immunizations not up to date. - Infectious Disease History:: Denies. - Social history:: Smoking status: Reported history of juuling and/or vaping. ROS: 13:02 Constitutional: Negative for fever, chills, and weight loss, Eyes: Negative for injury, sp3 pain, redness, and discharge, Neck: Negative for injury, pain, and swelling, Cardiovascular: Negative for chest pain, palpitations, and edema, Respiratory: Negative for shortness of breath, cough, wheezing, and pleuritic chest pain, Abdomen/GI: Negative for abdominal pain, nausea, vomiting, diarrhea, and constipation, Back: Negative for injury and pain, Skin: Negative for injury, rash, and discoloration, Neuro: Negative for headache, weakness, numbness, tingling, and seizure, Psych: Negative for depression, anxiety, suicide ideation, homicidal ideation, and hallucinations, Allergy/Immunology: Negative for hives, rash, and allergies, Endocrine: Negative for neck swelling, polydipsia, polyuria, polyphagia, and marked weight changes, Hematologic/Lymphatic: Negative for swollen nodes, abnormal bleeding, and unusual bruising, 13:02 All other systems are negative, Exam: 13:02 Constitutional: This is a well developed, well nourished patient who is awake, alert, sp3 and in no acute distress. Head/Face: Normocephalic, atraumatic. Eyes: Pupils equal round and reactive to light, extra-ocular motions intact. Lids and lashes normal. Conjunctiva and sclera are non-icteric and not injected. Cornea within normal limits. Periorbital areas with no swelling, redness, or edema. Neck: Trachea midline, no thyromegaly or masses palpated, and no cervical lymphadenopathy. Supple, full range of motion without nuchal rigidity, or vertebral point tenderness. No Meningismus. Chest/axilla: Normal chest wall appearance and motion. Nontender with no deformity. No lesions are appreciated. Cardiovascular: Regular rate and rhythm with a normal S1 and S2. No gallops, murmurs, or rubs. Normal PMI, no JVD. No pulse deficits. Respiratory: Lungs have equal breath sounds bilaterally, clear to auscultation and percussion. No rales, rhonchi or wheezes noted. No increased work of breathing, no retractions or nasal flaring. Abdomen/GI: Soft, non-tender, with normal bowel sounds. No distension or tympany. No guarding or rebound. No evidence of tenderness throughout. Back: No spinal tenderness. No costovertebral tenderness. Full range of motion. Skin: Warm, dry with normal turgor. Normal color with no rashes, no lesions, and no evidence of cellulitis. Neuro: Awake and alert, GCS 15, oriented to person, place, time, and situation. Cranial nerves II-XII grossly intact. Motor strength 5/5 in all extremities. Sensory grossly intact. Cerebellar exam normal. Normal gait. Psych: Awake, alert, with orientation to person, place and time. Behavior, mood, and affect are within normal limits. 13:02 Musculoskeletal/extremity: Left medial distal bicep area tender with mild swelling noted. Joint exam is normal.. 13:04 ECG was reviewed by the Attending Physician. EKG demonstrates normal sinus rhythm at 63 sp3 bpm with normal intervals, normal QRS, normal axis, nonspecific ST/T changes without evidence of acute ischemia. Vital Signs: 11:32 BP 140 / 64; Pulse 69; Resp 19; Temp 98.4; Pulse Ox 100% on R/A; Weight 86.18 kg; iw Height 5 ft. 6 in. ; Pain 7/10; 13:00 BP 138 / 68; Pulse 70; Resp 18; Temp 97.9; Pulse Ox 100% ; kj2 13:32 BP 139 / 69; Pulse 72; Resp 18; Temp 97.9; Pulse Ox 100% on R/A; kj2 11:32 Body Mass Index 30.67 (86.18 kg, 167.64 cm) iw 11:32 Pain Scale: Adult iw MDM: 11:27 Medical Screening Exam initiated sp3 13:03 Data reviewed: vital signs, nurses notes, lab test result(s), EKG, radiologic studies. sp3 ED course: 49-year-old female with left bicep pain and mild episode of chest pressure resolved since yesterday. No ongoing chest pain or related symptoms. Differential diagnosis includes musculoskeletal pain, bursitis, and to a much lower degree acute coronary syndrome. EKG, chest x-ray and labs all within normal limits. Will safely discharge patient with outpatient OTC ibuprofen and ice pack application and follow-up to PCP as needed.. 09/03 11:37 Order name: Basic Metabolic Panel; Complete Time: 12:44 3 09/03 11:37 Order name: CBC with Diff; Complete Time: 12:44 3 09/03 11:37 Order name: LFT's; Complete Time: 12:44 3 09/03 11:37 Order name: Magnesium; Complete Time: 12:44 3 09/03 11:37 Order name: NT PRO-BNP; Complete Time: 12:44 3 09/03 11:37 Order name: PT-INR; Complete Time: 12:44 3 09/03 11:37 Order name: Troponin HS; Complete Time: 12:44 3 09/03 11:37 Order name: XRAY Chest (1 view); Complete Time: 12:44 3 09/03 11:37 Order name: Cardiac monitoring; Complete Time: 13:00 3 09/03 11:37 Order name: EKG - Nurse/Tech; Complete Time: 11:40 sp3 09/03 11:37 Order name: IV Saline Lock; Complete Time: 12:18 sp3 09/03 11:37 Order name: Labs collected and sent; Complete Time: 12:18 sp3 09/03 11:37 Order name: O2 Per Protocol; Complete Time: 13:00 sp3 09/03 11:37 Order name: O2 Sat Monitoring; Complete Time: 13:00 sp3 Administered Medications: No medications were administered Disposition Summary: 09/03/24 13:05 Discharge Ordered Notes: Location: Home sp3 Condition: Stable sp3 Diagnosis - Left arm pain, resolved chest discomfort sp3 Followup: sp3 - With: Private Physician - When: Upon discharge from the Emergency Department - Reason: Recheck today's complaints, Continuance of care Discharge Instructions: - Discharge Summary Sheet sp3 - Distal Biceps Tendinitis sp3 Forms: - Medication Reconciliation Form sp3 - Antibiotic Education sp3 - Prescription Opioid Use sp3 - Patient Portal Instructions sp3 - Leadership Thank You Letter sp3 Signatures: Dispatcher [employer] Emma Zurita, Delio Haney RN, MD MD sp3
--- NOTE | 2024-09-03 13:06 | ER ---
Nurse's Notes [facility] Name: Bernice Akers Age: 49 yrs Sex: Female : 1975 Arrival Date: 09/03/2024 Time: 10:50 Bed 25 Private MD: Diagnosis: Left arm pain, resolved chest discomfort Presentation: 09/03 11:25 Chief complaint: Patient states: started having pain in left breast 2 days ago and this iw morning my left arm started hurting and tingling and felt nauseous. Coronavirus screen: At this time, the client does not indicate any symptoms associated with coronavirus-19. Ebola Screen: No symptoms or risks identified at this time. Initial Sepsis Screen: Does the patient meet any 2 criteria? No. Patient's initial sepsis screen is negative. Does the patient have a suspected source of infection? No. Patient's initial sepsis screen is negative. Risk Assessment: Do you want to hurt yourself or someone else? Patient reports no desire to harm self or others. Onset of symptoms was September 01, 2024. 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 - Infectious Disease History:: Denies. - Social history:: Smoking status: Reported history of juuling and/or vaping. Screenin:30 [facility] ED Fall Risk Assessment (Adult) History of falling in the last 3 months, kj2 including since admission No falls in past 3 months (0 pts) Confusion or Disorientation No (0 pts) Intoxicated or Sedated No (0 pts) Impaired Gait No (0 pts) Mobility Assist Device Used No (0 pt) Altered Elimination No (0 pt) Score/Fall Risk Level 0 - 2 = Low Risk Maintained a safe environment, Hourly rounding (assess needs \T\ fall precautionary measures) done. Abuse screen: Denies threats or abuse. Denies injuries from another. Nutritional screening: No deficits noted. Tuberculosis screening: No symptoms or risk factors identified. Assessment: 12:30 General: Appears in no apparent distress. Behavior is calm, cooperative. Pain: kj2 Complains of pain in left breast Pain currently is 5 out of 10 on a pain scale. Neuro: Level of Consciousness is awake, alert, obeys commands, Oriented to person, place, time, situation. Cardiovascular: Patient's skin is warm and dry. Respiratory: Airway is patent Respiratory effort is unlabored. GI: No signs and/or symptoms were reported involving the gastrointestinal system. : No signs and/or symptoms were reported regarding the genitourinary system. 13:32 Reassessment: Patient appears in no apparent distress at this time. Patient and/or kj2 family updated on plan of care and expected duration. Pain level reassessed. Patient is alert, oriented x 3, equal unlabored respirations, skin warm/dry/pink. Vital Signs: 11:32 BP 140 / 64; Pulse 69; Resp 19; Temp 98.4; Pulse Ox 100% on R/A; Weight 86.18 kg; iw Height 5 ft. 6 in. ; Pain 7/10; 13:00 BP 138 / 68; Pulse 70; Resp 18; Temp 97.9; Pulse Ox 100% ; kj2 13:32 BP 139 / 69; Pulse 72; Resp 18; Temp 97.9; Pulse Ox 100% on R/A; kj2 11:32 Body Mass Index 30.67 (86.18 kg, 167.64 cm) iw 11:32 Pain Scale: Adult iw ED Course: 10:51 Patient arrived in ED. im 10:55 Delio Reeves MD is Attending Physician. sp3 11:32 Triage completed. iw 11:32 Arm band placed on. iw 12:03 XRAY Chest (1 view) In Process Unspecified. EDMS 12:18 Basic Metabolic Panel Sent. bc6 12:18 CBC with Diff Sent. bc6 12:18 LFT's Sent. bc6 12:18 Magnesium Sent. bc6 12:18 NT PRO-BNP Sent. bc6 12:18 PT-INR Sent. bc6 12:18 Troponin HS Sent. bc6 12:18 Initial lab(s) drawn, by me, sent to lab. Inserted saline lock: 22 gauge in right bc6 antecubital area, using aseptic technique. Blood collected. Flushed with 10 mL NS. 12:30 Patient has correct armband on for positive identification. Bed in low position. Call kj2 light in reach. Adult w/ patient. Provided Education on: call light. 12:58 Liliam Monzon, RN is Primary Nurse. kj2 13:34 No provider procedures requiring assistance completed. IV discontinued, intact, kj2 bleeding controlled, No redness/swelling at site. Pressure dressing applied. Administered Medications: No medications were administered Medication: 13:00 VIS not applicable for this client. kj2 Outcome: 13:05 Discharge ordered by . sp3 13:34 Discharged to home ambulatory, kj2 13:34 Condition: stable 13:34 Discharge instructions given to patient, Instructed on discharge instructions, follow up and referral plans. Demonstrated understanding of instructions, follow-up care, 13:41 Patient left the ED. kj2 Signatures: Dispatcher [employer] EDMS Emma Louis, RN RN Delio Vasquez MD MD sp3 Rebekah Her 6 Gracy Encarnacion Liliam Monzon, RN RN kj2 Corrections: (The following items were deleted from the chart) 11:33 11:32 BP 140 / 64; Pulse 69bpm; Resp 19bpm; Pulse Ox 100% RA; Temp 98.4F; Pain 7/10, iw Adult; iw
[2024-09-03 13:46] VITALS: O2SAT 100
[2024-09-03 13:48] VITALS: TEMP 97.9
[2024-09-03 13:50] VITALS: BP 139/69
== END 2024-09-03 13:41 | disposition home or self-care (01) ==
LOC: ER 10:50
DX: M79.602 Pain in left arm (principal)
CPT/HCPCS: 36415; 71045; 80048; 80076; 83735; 83880; 84484; 85025; 85610; 93005